=== PATIENT | male | born 1965 | race Caucasian/White ===

== ENCOUNTER 2020-03-30 17:39 | Outpatient (REF) | payer MEDICARE, MEDICAID, SELFPAY | END 2020-03-30 17:40 | disposition home or self-care (01) | LOC: HO.LAB 17:39 | PROVIDERS: PCP Family Medicine; Visit Provider Internal Medicine | DX: Z20.828 Contact with and (suspected) exposure to other viral communicable diseases (principal) | CPT/HCPCS: C9803; U0003 ==

== ENCOUNTER 2020-06-19 16:19 | Emergency (ER) | payer MEDICARE, MEDICAID, SELFPAY ==
[2020-06-19 17:24] VITALS: BP 144/73; PULSE 50; RESP 15; TEMP 36.7; O2SAT 98; BMI 49.3
--- NOTE | 2020-06-19 19:34 | ED.GENADULT ---
HPI - General Adult General Chief complaint: General Medical Stated complaint: prostate infection? Time Seen by Provider: 06/19/20 19:34 Source: patient Mode of arrival: ambulatory Limitations: no limitations History of Present Illness HPI narrative: Patient complaining of dysuria for last 1 week within 2 days without taking any medication he got better then again restarted having the symptoms for last 3 days was seen at [facility] 2 days ago had a CT scan of the abdomen with IV contrast and ultrasound of the scrotum done negative, diagnosed with questionable prostatitis on Cipro comes here pain is not getting better and he noticed slight amount of blood in the urine. No flank pain no kidney stone in the CT scan at [facility] Onset (ago): week(s) (1) Related Data Allergies Allergy/AdvReac Type Severity Reaction Status Date / Time tramadol [TRAMADOL] Allergy Severe SEIZURES Unverified 01/30/20 16:20 metformin [METFORMIN] Allergy Unknown DIARRHEA Unverified 01/30/20 16:20 penicillin V Allergy Unknown Unverified 03/06/19 00:00 Penicillins Allergy Unknown RASH Unverified 01/30/20 16:20 Review of Systems Review of Systems: Constitutional : No Weight loss, No Fever, No Chills ENT/Mouth : No sore throat, No Rhinorrhea Eyes: No Eye Pain, No Swelling Cardiovascular : No Chest Pain, no palpitations Respiratory : No Cough, No Sputum, no shortness of breath Gastrointestinal : no Nausea, No Vomiting, No Diarrhea, No abdominal Pain, no black stools Genitourinary : + Dysuria, No Urinary Frequency Musculoskeletal : No joint pain, No Myalgias, No Joint Swelling Skin : No Skin Lesions, No rash Neuro : No Weakness, No Numbness, No Dizziness, No Headache Psych : No Anxiety/Panic, No Depression Heme/Lymph: No Bruising, No Lymphadenopathy Endocrine : No Polyuria, No Polydipsia All other systems reviewed and are negative [facility] Past Medical History Medical History Back pain Hypertension Social History Social History Alcohol intake: never Smoking Status: Never smoker Smoked in Last 30 Days: No Use of substances other than those prescribed or required for medical reasons: No Advance Directives: No Physical Exam Vital Signs: Vital Signs: Last Vital Signs Temp 98.6 F 06/19/20 23:49 Pulse 67 06/19/20 23:49 Resp 15 06/19/20 23:49 BP 156/69 H 06/19/20 23:49 Pulse Ox 96 06/19/20 23:49 Body Mass Index 49.3 Const: General: cooperative, healthy appearing and in distress mild Nutritional Appearance: average body habitus Orientation/consciousness: patient oriented x3 HENMT: Head: Yes normocephalic and Yes atraumatic Eyes: General: appearance normal, both eyes and all related structures Neck: Neck: Yes normal visual inspection and Yes no JVD Thyroid: Thyroid normal Chest: Chest palpation & inspection: normal inspection of the chest Resp: Effort & Inspection: normal respiratory effort Auscultation: clear to auscultation bilaterally Cardio: Palpation: normal PMI Rate: regular rate Rhythm: regular rhythm Heart sounds: S1 normal heart sound present and S2 normal heart sound present Peripheral pulses: Peripheral pulses 2+ throughout GI: Inspection: Yes normal to inspection Palpation (GI): Soft to palpation and nontender Auscultation: normal bowel sounds Rectal Exam - Male: Yes visual inspection normal, Yes normal sphincter tone and Yes prostate abnormal (Sensitive to touch, tender no significant swelling) : General: Yes no CVA tenderness Male General Exam: Yes normal external exam Penis: normal penis Scrotum: scrotum normal Testes: Testes normal and epididymides normal Back/Spine/Pelvis: Back: no CVA tenderness Thoracic/Lumbar Spine: thoracic and lumbar spine normal to inspection Skin: General skin exam: no rashes or lesions noted Neuro: General: patient oriented x3 and no focal motor deficits Extrem: General: Yes normal to inspection, Yes no calf tenderness and No pedal edema Course Course Course Narrative: Patient with rectal pain lower back pain with history of chronic back pain no fever normal white counts initial lactic acid level was 2.2 repeat lactic acid was normal likely from tourniquet. Patient's records from [facility] which were done on 06/[address] scan abdomen pelvis with IV contrast negative ultrasound scrotum negative labs with normal WBCs , very unlikely to have severe prostatitis with normal labs. On rectal examination patient was very sensitive for rectal exam in even with Uro jet he was very sensitive no swelling or bogginess of prostate noticed patient has is scheduled urologist appointment next week advised to follow-up with urologist. Patient was given 1 dose of IV Rocephin in the ER already has been taking ciprofloxacin 500 mg twice daily Medical Decision Making Lab Data Lab results reviewed: Yes I reviewed the patient's lab results. Result diagrams: 06/19/20 20:41 06/19/20 20:41 Labs: Lab Results 06/19/20 06/19/20 06/19/20 Range/Units 20:41 20:41 20:42 WBC 6.6 (4.8-10.8) X10*3/uL RBC 4.23 L (4.60-5.80) X10*6/uL Hgb 11.7 L (14.0-18.0) g/dl Hct 37.6 L (42-52) % MCV 88.9 (80-98) fL MCH 27.7 (27.0-33.0) pg MCHC 31.1 (31.0-36.0) g/dl RDW 15.4 (11.0-16.0) % Plt Count 348 (160-400) X10*3/uL MPV 9.6 (9.4-12.4) fL Immature Gran % (Auto) 0.2 (0.0-0.4) % Neut % (Auto) 51.5 (45-73) % Lymph % (Auto) 38.2 (20-40) % [place] % (Auto) 8.1 (2-11) % Eos % (Auto) 1.5 (0-4) % Baso % (Auto) 0.5 (0-2) % Lymph # (Auto) 2.5 (1.2-4.9) X10*3/uL [place] # (Auto) 0.5 (0.1-1.2) X10*3/uL Eos # (Auto) 0.1 (0.0-0.4) X10*3/uL Baso # (Auto) 0.0 (0.0-0.2) X10*3/uL Abs Immat Gran (auto) 0.01 (0.00-0.03) X10*3/uL Absolute Neuts (auto) 3.4 (2.0-8.3) X10*3/uL Absolute Nucleated RBC 0.000 (0.0-0.012) X10*3/uL Nucleated RBC % (auto) 0.0 (0.0-0.2) /100WBC Sodium 141 (135-145) mmol/L Potassium 4.6 (3.3-5.1) mmol/L Chloride 105 (96-108) mmol/L Carbon Dioxide 28 (22-29) mmol/L Anion Gap 13 (12-20) BUN 13 (9-16) mg/dL Creatinine 0.91 (0.5-1.4) mg/dL Estim Creat Clear Calc 125.5 Estimated GFR > 60 Random Glucose 98 (60-115) mg/dL Lactic Acid 2.2 H* (0.5-2.0) mmol/L Calcium 8.5 (8.4-10.2) mg/dL Total Bilirubin 0.2 (0.0-1.0) mg/dL Direct Bilirubin < 0.2 (0.0-0.5) mg/dL AST 88 H (5-37) U/L ALT 64 H (0-40) U/L Alkaline Phosphatase 149 H (39-117) U/L Total Protein 7.1 (6.5-8.0) g/dL Albumin 3.6 (3.5-5.0) g/dL 06/19/20 Range/Units 22:14 WBC (4.8-10.8) X10*3/uL RBC (4.60-5.80) X10*6/uL Hgb (14.0-18.0) g/dl Hct (42-52) % MCV (80-98) fL MCH (27.0-33.0) pg MCHC (31.0-36.0) g/dl RDW (11.0-16.0) % Plt Count (160-400) X10*3/uL MPV (9.4-12.4) fL Immature Gran % (Auto) (0.0-0.4) % Neut % (Auto) (45-73) % Lymph % (Auto) (20-40) % [place] % (Auto) (2-11) % Eos % (Auto) (0-4) % Baso % (Auto) (0-2) % Lymph # (Auto) (1.2-4.9) X10*3/uL [place] # (Auto) (0.1-1.2) X10*3/uL Eos # (Auto) (0.0-0.4) X10*3/uL Baso # (Auto) (0.0-0.2) X10*3/uL Abs Immat Gran (auto) (0.00-0.03) X10*3/uL Absolute Neuts (auto) (2.0-8.3) X10*3/uL Absolute Nucleated RBC (0.0-0.012) X10*3/uL Nucleated RBC % (auto) (0.0-0.2) /100WBC Sodium (135-145) mmol/L Potassium (3.3-5.1) mmol/L Chloride (96-108) mmol/L Carbon Dioxide (22-29) mmol/L Anion Gap (12-20) BUN (9-16) mg/dL Creatinine (0.5-1.4) mg/dL Estim Creat Clear Calc Estimated GFR Random Glucose (60-115) mg/dL Lactic Acid 1.4 (0.5-2.0) mmol/L Calcium (8.4-10.2) mg/dL Total Bilirubin (0.0-1.0) mg/dL Direct Bilirubin (0.0-0.5) mg/dL AST (5-37) U/L ALT (0-40) U/L Alkaline Phosphatase (39-117) U/L Total Protein (6.5-8.0) g/dL Albumin (3.5-5.0) g/dL Discharge Plan Discharge Clinical Impression: Acute prostatitis Patient Disposition: Home, Self-Care Instructions: Prostatitis (ED) Additional Instructions: Likely have prostatitis your blood report is normal. Take antibiotics as prescribed by [facility] and follow-up with urologist as scheduled Report to the ER/PCP if high fever/vomiting not feeling good Interventions: ED Discharge Assessment Last Done: 06/20/20 00:18 Discharge Date/Time: 06/20/20 00:18
[2020-06-19 19:52] VITALS: BP 140/55; PULSE 69; RESP 17; TEMP 37.1; O2SAT 100
[2020-06-19 20:00] VITALS: BP 147/70; PULSE 60; RESP 16; TEMP 36.9; O2SAT 96
[2020-06-19 20:50] LABS: MANUAL DIFF FLAG NO
--- NOTE | 2020-06-19 20:58 | PC.NURSE ---
MULTIPLE ATTEMPTS FOR IV ACCESS FORM THIS RN AND OTHER. PROVIDER MADE AWARE, ORDERS CHANGED FOR PO MEDICATIONS. PATIENT ENCOURAGED TO URINATE FOR SAMPLE [facility] CONTACTED FOR MEDICAL RECORDS FROM 2 DAYS AGO. PATIENT THERE FOR SAME COMPLAINT.
[2020-06-19 20:59] LABS: Basophils Percent Auto 0.5 % (0-2); Eosinophils Absolute Auto 0.1 X10*3/uL (0.0-0.4); Eosinophils Percent Auto 1.5 % (0-4); Hematocrit 37.6 % (42-52); Hemoglobin 11.7 g/dl (14.0-18.0); Imm Gran Abs Auto 0.01 X10*3/uL (0.00-0.03); Imm Gran Pct Auto 0.2 % (0.0-0.4); Lymphocytes Absolute Auto 2.5 X10*3/uL (1.2-4.9); Lymphocytes Percent Auto 38.2 % (20-40); Mean Corpuscular HGB Conc 31.1 g/dl (31.0-36.0); Mean Corpuscular Hemoglobin 27.7 pg (27.0-33.0); Mean Corpuscular Volume 88.9 fL (80-98); Mean Platelet Volume 9.6 fL (9.4-12.4); Monocytes Absolute Auto 0.5 X10*3/uL (0.1-1.2); Monocytes Percent Auto 8.1 % (2-11); Neutrophils Absolute Auto 3.4 X10*3/uL (2.0-8.3); Neutrophils Percent Auto 51.5 % (45-73); Platelet Count 348 X10*3/uL (160-400); Red Blood Count 4.23 X10*6/uL (4.60-5.80); Red Cell Distribution Width 15.4 % (11.0-16.0); White Blood Count 6.6 X10*3/uL (4.8-10.8)
[2020-06-19] MEDS: oxyCODONE HCl Immed Release 5 MG TABLET 10 MG PO (21:05)
[2020-06-19 21:32] LABS: Alanine Aminotransferase 64 U/L (0-40); Albumin Level 3.6 g/dL (3.5-5.0); Alkaline Phosphatase 149 U/L (39-117); Anion Gap 13 (12-20); Aspartate Amino Transferase 88 U/L (5-37); Bilirubin Direct < 0.2 mg/dL (0.0-0.5); Bilirubin Total 0.2 mg/dL (0.0-1.0); Blood Urea Nitrogen 13 mg/dL (9-16); Calcium 8.5 mg/dL (8.4-10.2); Carbon Dioxide 28 mmol/L (22-29); Chloride 105 mmol/L (96-108); Creatinine Clr Calc Pharmacy 125.5; Estimated Glomerular Filt Rate > 60; Glucose Random 98 mg/dL (60-115); Potassium 4.6 mmol/L (3.3-5.1); Sodium 141 mmol/L (135-145); Total Protein 7.1 g/dL (6.5-8.0)
[2020-06-19 21:48] VITALS: BP 145/71; PULSE 51; RESP 16; TEMP 36.9; O2SAT 96
[2020-06-19] MEDS: Lidocaine HCl 2 % Urojet 10 ML JEL.PF.APP TOPICAL (22:18)
[2020-06-19] MEDS: 0.9 % Sodium Chloride 1,000 ML 999 ML IVCONT ×2 (22:18→23:19)
[2020-06-19 22:41] LABS: Lactic Acid 1.4 mmol/L (0.5-2.0)
[2020-06-19 22:49] LABS: Reflex Lactate? Lactic Acid Added
[2020-06-19] MEDS: HYDROmorphone HCl 2 MG/ML VIAL IVPUSH (23:19)
[2020-06-19] MEDS: cefTRIAXone sodium 1 GM in 0.9 % Sodium Chloride 50 ML IV (23:19)
[2020-06-19 23:49] VITALS: BP 156/69; PULSE 67; RESP 15; TEMP 37; O2SAT 96
[2020-06-22 14:08] LABS: Lactic Acid 2.2 mmol/L (0.5-2.0)
== END 2020-06-20 00:18 | disposition home or self-care (01) ==
PROVIDERS: Emergency Provider Internal Medicine; PCP Family Medicine
DX: N41.0 Acute prostatitis (principal); I10 Essential (primary) hypertension
CPT/HCPCS: 36415; 80048; 80076; 83605; 85025; 87040; 96361; 96365; 96366; 96367; 96375; 96376; 99284; J0696; J1170

== ENCOUNTER 2020-07-12 20:09 | Emergency (ER) | payer MEDICARE, MEDICAID, SELFPAY ==
--- NOTE | ~2020-07-12 | US_ITS ---
EXAMINATION: US SCROTUM CLINICAL INFORMATION: Testicular pain. COMPARISON: None TECHNIQUE: A sonogram of the scrotum was performed assessing osei-scale appearance and color Doppler flow. Spectral Doppler analysis of the arterial and venous flow were performed in the testes bilaterally. Examination is mildly limited secondary to patient body habitus. FINDINGS: RIGHT: Right testicle measures 2.9 x 1.5 x 2.1 cm, volume 4.8 mL. No focal testicular parenchymal lesions are visualized. Spectral Doppler analysis of the arterial and venous flow is normal in the right testis. Right epididymal head is normal in size. No right hydrocele or varicocele is seen. Right epididymal color flow is normal. LEFT: Left testicle measures 2.5 x 1.3 x 1.9 cm, volume 3.3 mL. No focal testicular parenchymal lesions are visualized although a prominent vein courses through the central aspect of the left testicle. Spectral Doppler analysis of the arterial and venous flow is normal in the left testis. Left epididymal head is normal in size. No left hydrocele or varicocele is seen. Left epididymal color flow is normal. US/US scrotum IMPRESSION: The testicles are small in size but demonstrate normal arterial and venous waveforms bilaterally.
--- NOTE | ~2020-07-12 | US_ITS ---
EXAMINATION: US SCROTUM CLINICAL INFORMATION: Testicular pain. COMPARISON: None TECHNIQUE: A sonogram of the scrotum was performed assessing osei-scale appearance and color Doppler flow. Spectral Doppler analysis of the arterial and venous flow were performed in the testes bilaterally. Examination is mildly limited secondary to patient body habitus. FINDINGS: RIGHT: Right testicle measures 2.9 x 1.5 x 2.1 cm, volume 4.8 mL. No focal testicular parenchymal lesions are visualized. Spectral Doppler analysis of the arterial and venous flow is normal in the right testis. Right epididymal head is normal in size. No right hydrocele or varicocele is seen. Right epididymal color flow is normal. LEFT: Left testicle measures 2.5 x 1.3 x 1.9 cm, volume 3.3 mL. No focal testicular parenchymal lesions are visualized although a prominent vein courses through the central aspect of the left testicle. Spectral Doppler analysis of the arterial and venous flow is normal in the left testis. Left epididymal head is normal in size. No left hydrocele or varicocele is seen. Left epididymal color flow is normal. US/US scrotum doppler IMPRESSION: The testicles are small in size but demonstrate normal arterial and venous waveforms bilaterally.
--- NOTE | ~2020-07-12 | CT_ITS ---
EXAMINATION: CT ABDOMEN AND PELVIS WITH CONTRAST CLINICAL INFORMATION: Suprapubic/inguinal pain. COMPARISON: 08/06/2013 TECHNIQUE: Multidetector volumetric images were obtained from the superior aspect of the liver through the pubic symphysis following administration 85 mL of Omnipaque 350 intravenous contrast. Sagittal and coronal reformatted images were obtained on the technologist's workstation. Oral contrast: No This CT examination was performed using dose optimization techniques as appropriate, variously including the following: *Automated exposure control *Adjustment of mA and/or kV according to patient size (this includes techniques or standardized protocols for targeted exams where dose is matched to indication/reason for exam; i.e. extremities or head) *Use of iterative reconstruction technique DLP: 1457 mGy-cm FINDINGS: LUNG BASES: The visualized lung bases are unremarkable. LIVER, GALLBLADDER, AND BILIARY TREE: The liver is normal in size, shape, and attenuation. No focal hepatic lesion or biliary ductal dilatation is present. Cholecystectomy. PANCREAS: There is atrophy of the pancreatic parenchyma with no focal lesion. SPLEEN: Unremarkable. ADRENAL GLANDS: Unremarkable. KIDNEYS AND URETERS: The kidneys are normal in size, shape, and attenuation. No hydronephrosis, hydroureter, or calculi seen. No perinephric stranding. BLADDER: Unremarkable. GASTROINTESTINAL TRACT: Postsurgical changes of Kylee-en-Y gastric bypass. No obstruction. Normal appendix. No colonic wall thickening or inflammatory change. Moderate colonic stool burden. No free air or free fluid. ABDOMINAL WALL: No significant hernia is appreciated. LYMPH NODES: Normal. VASCULAR: Normal caliber aorta with mild atherosclerotic calcification. PELVIC VISCERA: The prostate and seminal vesicles are unremarkable. OSSEOUS STRUCTURES: No acute or suspicious osseous abnormality. Posterior fusion hardware at L3-L4. Appropriate alignment. Degenerative changes of the spine. Mild degenerative changes of the right hip. CT/CT abdomen pelvis w con IMPRESSION: No acute findings in the abdomen or pelvis. No inflammatory changes. Normal appearance of the prostate. No abdominal wall hernia seen. Postsurgical changes of Kylee-en-Y gastric bypass.
[2020-07-12 20:28] VITALS: BP 175/80; PULSE 70; RESP 15; TEMP 36.6; O2SAT 98; BMI 49.3
--- NOTE | 2020-07-12 21:10 | ED.MALEGU ---
HPI - Male Genitourinary General Chief complaint: Urogenital-Male Stated complaint: Groin pain Time Seen by Provider: 07/12/20 21:07 Source: patient Mode of arrival: ambulatory History of Present Illness HPI Narrative: This is a 55-year-old male with history and clinical presentation of persistent testicular/groin pain that has been ongoing since the beginning of June. Patient was evaluated here in the emergency department on and treated for presumptive prostatitis. Patient now presents with complaints of chills and pain on urination with dribbling and needing to strain to urinate but denies any other shortness of breath/chest pain/diarrhea and no pain on defecation. Patient states he has continued to have right greater than left testicular discomfort and states that he is still waiting to have his appointment with Urology and that his primary care provider has left him on the antibiotics that were prescribed. Related Data Allergies Allergy/AdvReac Type Severity Reaction Status Date / Time tramadol [TRAMADOL] Allergy Severe SEIZURES Verified 07/12/20 20:34 metformin [METFORMIN] Allergy Unknown DIARRHEA Verified 07/12/20 20:34 penicillin V Allergy Unknown Rash Verified 07/12/20 20:34 Penicillins Allergy Unknown RASH Verified 07/12/20 20:34 Review of Systems Review of Systems: Pertinent positives and negatives as stated in HPI 10 point review of systems is otherwise negative. PMFSH Past Medical History Source: nursing notes reviewed Medical History Back pain Hypertension Social History Social History Alcohol intake: never Smoking Status: Never smoker Advance Directives: No Advance Directives Information Provided: Yes Physical Exam Vital Signs: Vital Signs: Last Vital Signs Temp 97.9 F 07/12/20 20:28 Pulse 78 07/12/20 23:39 Resp 18 07/12/20 23:39 BP 189/92 H 07/12/20 23:39 Pulse Ox 98 07/12/20 23:39 Body Mass Index 49.3 VITAL SIGNS: Reviewed. GENERAL: Well developed, well nourished, in no acute distress. HEAD: Normocephalic/atraumatic EYES: PERRLA, EOMI OROPHARYNX: no oral lesions noted, posterior pharynx clear NECK: Supple, no adenopathy LUNGS: Normal breath sounds. No adventitious sounds or accessory muscle use. SpO2<98> CARDIOVASCULAR: Regular rate and rhythm without noted murmurs, no JVD or lower extremity edema. ABDOMEN: Morbidly obese, Soft, non-tender, non-distended with bowel sounds. [exam standing]: Circumcised penis, palpation of right testicle illicits considerable pain which extends up the epididymis with suspected hernia and pain over the inguinal area as well as the fat pad covering the suprapubic tissue, there is no evidence of erythema/ulceration/induration/crepitus, palpation of the left testicle elicits pain that is less than the right but still present no suspected hernia however the fat pad covering the inguinal area is very tender on palpation although less when compared to right, palpation over the perineal area between scrotum and rectum is minimally tender without evidence of infection. GROIN: Patient placed in frogleg on his back extensive inspection of the scrotum and perineal area negative for erythema/induration/crepitus/?bogginess?. ARIANA: No tags or lesions noted externally, no inflamed external hemorrhoids noted, exam difficult due to patient struggling with relaxing however 1 finger was successfully placed into the anus and palpation prostate did appear to be painful to the patient however unclear whether this was the exam itself as prostate does not feel boggy and evaluation for masses equivocal due to exam limitations, no evidence of melena or gross blood on finger with good rectal tone. SKIN: Inspection of the skin reveals no rashes, ulcerations, jaundice, pallor, or petechiae. NEUROLOGIC: Alert and oriented x 4. Course Course Course Narrative: This is a 55-year-old male with history and clinical presentation less concerning for Peter's gangrene, possibility of hernia as well as incomplete treatment of a prostatitis however this seems less likely given the absence of pain on palpation over the perineal area. No obvious support for abscess. - pain medications, labs, STI workup, UA, ultrasound of the scrotum, and likely will proceed to pelvic ultrasound with IV contrast. Review of all investigations is negative for any evidence to explain patient's presentation. All the results and findings were discussed with him at bedside and he was encouraged to follow up with his primary care provider for further outpatient workup as well as pursuing an evaluation by Urology. MDM - Male Genitourinary Lab Data Result diagrams: 07/12/20 22:25 07/12/20 22:25 Labs: Lab Results 07/12/20 07/12/20 07/12/20 Range/Units 22:25 22:25 22:25 WBC 6.7 (4.8-10.8) X10*3/uL RBC 4.11 L (4.60-5.80) X10*6/uL Hgb 11.1 L (14.0-18.0) g/dl Hct 35.2 L (42-52) % MCV 85.6 (80-98) fL MCH 27.0 (27.0-33.0) pg MCHC 31.5 (31.0-36.0) g/dl RDW 15.2 (11.0-16.0) % Plt Count 328 (160-400) X10*3/uL MPV 9.7 (9.4-12.4) fL Immature Gran % (Auto) 0.1 (0.0-0.4) % Neut % (Auto) 58.0 (45-73) % Lymph % (Auto) 32.9 (20-40) % [place] % (Auto) 8.0 (2-11) % Eos % (Auto) 0.7 (0-4) % Baso % (Auto) 0.3 (0-2) % Lymph # (Auto) 2.2 (1.2-4.9) X10*3/uL [place] # (Auto) 0.5 (0.1-1.2) X10*3/uL Eos # (Auto) 0.1 (0.0-0.4) X10*3/uL Baso # (Auto) 0.0 (0.0-0.2) X10*3/uL Abs Immat Gran (auto) 0.01 (0.00-0.03) X10*3/uL Absolute Neuts (auto) 3.9 (2.0-8.3) X10*3/uL Absolute Nucleated RBC 0.000 (0.0-0.012) X10*3/uL Nucleated RBC % (auto) 0.0 (0.0-0.2) /100WBC Sodium 141 (135-145) mmol/L Potassium 4.1 (3.3-5.1) mmol/L Chloride 106 (96-108) mmol/L Carbon Dioxide 26 (22-29) mmol/L Anion Gap 13 (12-20) BUN 13 (9-16) mg/dL Creatinine 0.88 (0.5-1.4) mg/dL Estim Creat Clear Calc 129.8 Estimated GFR > 60 Random Glucose 103 (60-115) mg/dL Lactic Acid 0.9 (0.5-2.0) mmol/L Calcium 8.3 L (8.4-10.2) mg/dL Total Bilirubin 0.3 (0.0-1.0) mg/dL AST 25 D (5-37) U/L ALT 32 (0-40) U/L Alkaline Phosphatase 142 H (39-117) U/L Total Protein 7.2 (6.5-8.0) g/dL Albumin 3.7 (3.5-5.0) g/dL Urine Color Urine Appearance Urine pH (5.0-8.0) Ur Specific [place] (1.005-1.025) Urine Protein (NEG-TRACE) MG/DL Urine Glucose (UA) (NEG) MG/DL Urine Ketones (NEG) MG/DL Urine Blood (NEG) Urine Nitrite (NEG) Ur Leukocyte Esterase (NEG) 07/13/20 Range/Units 00:21 WBC (4.8-10.8) X10*3/uL RBC (4.60-5.80) X10*6/uL Hgb (14.0-18.0) g/dl Hct (42-52) % MCV (80-98) fL MCH (27.0-33.0) pg MCHC (31.0-36.0) g/dl RDW (11.0-16.0) % Plt Count (160-400) X10*3/uL MPV (9.4-12.4) fL Immature Gran % (Auto) (0.0-0.4) % Neut % (Auto) (45-73) % Lymph % (Auto) (20-40) % [place] % (Auto) (2-11) % Eos % (Auto) (0-4) % Baso % (Auto) (0-2) % Lymph # (Auto) (1.2-4.9) X10*3/uL [place] # (Auto) (0.1-1.2) X10*3/uL Eos # (Auto) (0.0-0.4) X10*3/uL Baso # (Auto) (0.0-0.2) X10*3/uL Abs Immat Gran (auto) (0.00-0.03) X10*3/uL Absolute Neuts (auto) (2.0-8.3) X10*3/uL Absolute Nucleated RBC (0.0-0.012) X10*3/uL Nucleated RBC % (auto) (0.0-0.2) /100WBC Sodium (135-145) mmol/L Potassium (3.3-5.1) mmol/L Chloride (96-108) mmol/L Carbon Dioxide (22-29) mmol/L Anion Gap (12-20) BUN (9-16) mg/dL Creatinine (0.5-1.4) mg/dL Estim Creat Clear Calc Estimated GFR Random Glucose (60-115) mg/dL Lactic Acid (0.5-2.0) mmol/L Calcium (8.4-10.2) mg/dL Total Bilirubin (0.0-1.0) mg/dL AST (5-37) U/L ALT (0-40) U/L Alkaline Phosphatase (39-117) U/L Total Protein (6.5-8.0) g/dL Albumin (3.5-5.0) g/dL Urine Color YELLOW Urine Appearance CLEAR Urine pH 5.5 (5.0-8.0) Ur Specific [place] 1.020 (1.005-1.025) Urine Protein NEG (NEG-TRACE) MG/DL Urine Glucose (UA) NEG (NEG) MG/DL Urine Ketones NEG (NEG) MG/DL Urine Blood NEG (NEG) Urine Nitrite NEG (NEG) Ur Leukocyte Esterase NEG (NEG) Discharge Plan Discharge Clinical Impression: Chronic groin pain Qualifiers: Laterality: unspecified laterality Qualified Code(s): R10.30 - Lower abdominal pain, unspecified Patient Disposition: Home, Self-Care Instructions: Groin Pain (ED) Additional Instructions: 1. Reanude todos los medicamentos caseros seg?n lo recetado. 2. Utilice Tylenol / ibuprofeno de venta fredo para aliviar los s?ntomas adicionales aida se indica en el empaque exterior. 3. Comun?quese con el consultorio de mccrary proveedor de atenci?n primaria por la ma?cosmo para programar mora reevaluaci?n y manejo de alice s?ntomas continuos. No dude en volver al servicio de urgencias si desarrolla un empeoramiento barber de alice s?ntomas asociado con fiebre, escalofr?os. Referrals: Giorgi Leach MD [Primary Care Provider] - 2 days (Re-evaluation and outpatient management for chronic groin pain and extensive workup in the emergency department did not yield identifying etiology.) Print Language: Hungarian
[2020-07-12] MEDS: Ketorolac Tromethamine 15 MG/ML VIAL IVPUSH (22:25)
[2020-07-12] MEDS: Acetaminophen 325 MG TABLET 975 MG PO (22:25)
[2020-07-12] MEDS: 0.9 % Sodium Chloride 1,000 ML 999 ML IV (22:25)
[2020-07-12 22:33] LABS: MANUAL DIFF FLAG NO
[2020-07-12 22:36] LABS: Basophils Percent Auto 0.3 % (0-2); Eosinophils Absolute Auto 0.1 X10*3/uL (0.0-0.4); Eosinophils Percent Auto 0.7 % (0-4); Hematocrit 35.2 % (42-52); Hemoglobin 11.1 g/dl (14.0-18.0); Imm Gran Abs Auto 0.01 X10*3/uL (0.00-0.03); Imm Gran Pct Auto 0.1 % (0.0-0.4); Lymphocytes Absolute Auto 2.2 X10*3/uL (1.2-4.9); Lymphocytes Percent Auto 32.9 % (20-40); Mean Corpuscular HGB Conc 31.5 g/dl (31.0-36.0); Mean Corpuscular Volume 85.6 fL (80-98); Mean Platelet Volume 9.7 fL (9.4-12.4); Monocytes Absolute Auto 0.5 X10*3/uL (0.1-1.2); Neutrophils Absolute Auto 3.9 X10*3/uL (2.0-8.3); Platelet Count 328 X10*3/uL (160-400); Red Blood Count 4.11 X10*6/uL (4.60-5.80); Red Cell Distribution Width 15.2 % (11.0-16.0); White Blood Count 6.7 X10*3/uL (4.8-10.8)
[2020-07-12 22:53] LABS: Lactic Acid 0.9 mmol/L (0.5-2.0)
[2020-07-12 22:59] LABS: Alanine Aminotransferase 32 U/L (0-40); Albumin Level 3.7 g/dL (3.5-5.0); Alkaline Phosphatase 142 U/L (39-117); Anion Gap 13 (12-20); Aspartate Amino Transferase 25 U/L (5-37); Bilirubin Total 0.3 mg/dL (0.0-1.0); Blood Urea Nitrogen 13 mg/dL (9-16); Calcium 8.3 mg/dL (8.4-10.2); Carbon Dioxide 26 mmol/L (22-29); Chloride 106 mmol/L (96-108); Creatinine Clr Calc Pharmacy 129.8; Estimated Glomerular Filt Rate > 60; Glucose Random 103 mg/dL (60-115); Potassium 4.1 mmol/L (3.3-5.1); Sodium 141 mmol/L (135-145); Total Protein 7.2 g/dL (6.5-8.0)
--- NOTE | 2020-07-12 23:12 | PC.NURSE ---
THIS RN IN TO WAFER CUTTER MD FOR ARIANA
[2020-07-12] MEDS: fentaNYL citrate/PF 100 MCG/2 ML VIAL 25 MCG IVPUSH (23:33)
[2020-07-12 23:39] VITALS: BP 189/92; PULSE 78; RESP 18; O2SAT 98
[2020-07-12] MEDS: iohexoL 350 MG/ML 100 ML INFUS..BTL 85 ML IV (23:51)
[2020-07-13 00:32] LABS: Glucose Urine UA NEG (NEG); Leukocyte Esterase Urine NEG (NEG); Nitrite Urine NEG (NEG); PH 5.5 (5.0-8.0); Urine Blood NEG (NEG); Urine Ketones NEG (NEG); Urine Protein NEG (NEG-TRACE)
[2020-07-13 00:33] LABS: Appearance Urine CLEAR; Color Urine YELLOW; UACC Culture Trigger NO
[2020-07-13 02:10] VITALS: BP 178/80; PULSE 76; RESP 18; O2SAT 98
== END 2020-07-13 02:45 | disposition home or self-care (01) ==
PROVIDERS: Emergency Provider Student in an Organized Health Care Education/Training Program; PCP Family Medicine
DX: N50.819 Testicular pain, unspecified (principal); R03.0 Elevated blood-pressure reading, without diagnosis of hypertension; R10.30 Lower abdominal pain, unspecified
CPT/HCPCS: 36415; 74177; 76870; 80053; 81003; 83605; 85025; 87040; 93975; 96361; 96365; 96375; 99284; J1885; J3010; Q9967

== ENCOUNTER 2020-09-14 00:21 | Outpatient (REF) | payer SELFPAY | END 2020-09-14 00:22 | disposition home or self-care (01) | LOC: HO.MMNH2L 00:21 | PROVIDERS: Visit Provider Family Medicine | DX: Z13.89 Encounter for screening for other disorder (principal) ==

== ENCOUNTER 2020-09-21 16:24 | Emergency (ER) | payer MEDICARE, MEDICAID, SELFPAY ==
[2020-09-21 16:40] VITALS: BP 203/81; PULSE 84; RESP 16; TEMP 36.6; O2SAT 93; BMI 47.9
[2020-09-21 16:45] LABS: Glucose, Whole Blood 172 mg/dL (60-115)
--- NOTE | 2020-09-21 17:03 | ED.SEIZURE ---
HPI - Seizure General Chief Complaint: Seizure Stated Complaint: unresponsive ? seizure Time Seen by Provider: 09/21/20 17:03 Source: patient Mode of arrival: EMS Limitations: language barrier History of Present Illness HPI Narrative: Patient's history of seizure disorder for a long time not taking his Depakote which is supposed to take for last few days last seizure was 2 years ago. Patient taking OxyContin 30 mg daily and oxycodone 10 mg every 6 hours for last few weeks for his chronic back pain given by his PCP. Today he did not eat anything and when to do shopping with his sitting on the [employer] cart he took his oxycodone and OxyContin hour before that, noticed he is not feeling well and next moment he was having seizure which lasted for 3-4 minutes. EMS gave nasal Narcan thought was overdose now patient feeling uneasy with sweating Related Data Home Medications Medication Instructions Recorded Confirmed amlodipine 10 mg PO DAILY 09/21/20 09/21/20 dexlansoprazole [Dexilant] 1 cap PO DAILY 09/21/20 09/21/20 divalproex [Depakote] 500 mg PO BID 09/21/20 09/21/20 fluoxetine 1 cap PO DAILY 09/21/20 09/21/20 lisinopril 40 mg PO DAILY 09/21/20 09/21/20 metoprolol succinate 200 mg PO DAILY 09/21/20 09/21/20 oxycodone [OxyContin] 1 tab PO BID 09/21/20 09/21/20 oxycodone-acetaminophen 1 tab PO QID PRN 09/21/20 09/21/20 sildenafil 1 tab PO DAILY 09/21/20 09/21/20 simvastatin 1 tab PO DAILY 09/21/20 09/21/20 Previous Rx's Medication Instructions Recorded diclofenac epolamine 1 patch TOPICAL BID #30 ea 09/21/20 levetiracetam [Keppra] 500 mg PO BID #60 tab 09/21/20 lidocaine [Lidoderm] 1 patch TOPICAL DAILY #30 ea 09/21/20 Allergies Allergy/AdvReac Type Severity Reaction Status Date / Time tramadol [TRAMADOL] Allergy Severe SEIZURES Verified 09/21/20 16:29 metformin [METFORMIN] Allergy Unknown DIARRHEA Verified 09/21/20 16:29 penicillin V Allergy Unknown Rash Verified 09/21/20 16:29 Penicillins Allergy Unknown RASH Verified 09/21/20 16:29 Review of Systems Review of Systems: Constitutional : No Weight loss, No Fever, No Chills ENT/Mouth : No sore throat, No Rhinorrhea Eyes: No Eye Pain, No Swelling Cardiovascular : No Chest Pain, no palpitations Respiratory : No Cough, No Sputum, no shortness of breath Gastrointestinal : no Nausea, No Vomiting, No Diarrhea, No abdominal Pain, no black stools Genitourinary : No Dysuria, No Urinary Frequency Musculoskeletal : No joint pain, No Myalgias, No Joint Swelling Skin : No Skin Lesions, No rash Neuro : No Weakness, No Numbness, No Dizziness, No Headache Psych : No Anxiety/Panic, No Depression Heme/Lymph: No Bruising, No Lymphadenopathy Endocrine : No Polyuria, No Polydipsia All other systems reviewed and are negative [facility] Past Medical History Medical History Back pain Hypertension Social History Social History Alcohol intake: former Smoking Status: Never smoker Use of substances other than those prescribed or required for medical reasons: No Advance Directives: No Advance Directives Information Provided: No Physical Exam Vital Signs: Vital Signs: Last Vital Signs Temp 98 F 09/21/20 16:40 Pulse 61 09/21/20 22:14 Resp 15 09/21/20 22:14 BP 165/75 H 09/21/20 22:14 Pulse Ox 96 09/21/20 22:14 Body Mass Index 47.9 Appearance: Alert. Oriented X3. No acute distress. Eyes: PERRLA, No Nystagmus ENT: Pharynx normal. Oral Mucosa moist no tongue bite Neck: Normal inspection. Neck supple. CVS: Normal heart rate and rhythm. Pulses normal. Respiratory: No respiratory distress. Equal air entry bilateral, no wheezing/rales/rhonchi Abdomen: Soft and nontender. Bowel sounds are present, no mass palpable, no CVA tenderness Skin: Skin warm and dry. Normal skin color. Normal skin turgor. Extremities: No lower extremity edema. No calf tenderness Neuro: Oriented X 3. No motor deficit. No sensory deficit.No cerebellar signs , cranial nerves II-XII intact Course Reevaluation(s) Reevaluation #1: Patient found to have RR 6/min with apnea saturating 58% at room air, 4 mg Narcan was given intranasally patient with patient responded no saturating 92% Time: 18:30 MDM - Seizure MDM Narrative Medical decision making narrative: Patient with clinical overdose on narcotics using prescription medication oxycodone, OxyContin lab workup showed elevated liver enzymes AST 455 ALT 167, a clean phosphatase 190 bilirubin 0.4. Patient had normal LFTs on 09/10. Patient been taking Tylenol about 2 g a day for last few months also on Lipitor and Depakote likely causing increase elevation LFTs. Patient status post cholecystectomy no tenderness in the right upper quadrant. Tylenol level is normal. 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 Result diagrams: 09/21/20 18:42 09/21/20 18:42 Labs: Lab Results 09/21/20 09/21/20 09/21/20 Range/Units 16:41 18:42 18:42 WBC 13.8 H (4.8-10.8) X10*3/uL RBC 4.29 L (4.60-5.80) X10*6/uL Hgb 12.0 L (14.0-18.0) g/dl Hct 38.0 L (42-52) % MCV 88.6 (80-98) fL MCH 28.0 (27.0-33.0) pg MCHC 31.6 (31.0-36.0) g/dl RDW 16.5 H (11.0-16.0) % Plt Count 383 (160-400) X10*3/uL MPV 9.4 (9.4-12.4) fL Immature Gran % (Auto) 0.7 H (0.0-0.4) % Neut % (Auto) 75.5 H (45-73) % Lymph % (Auto) 15.0 L (20-40) % [place] % (Auto) 8.6 (2-11) % Eos % (Auto) 0.1 (0-4) % Baso % (Auto) 0.1 (0-2) % Lymph # (Auto) 2.1 (1.2-4.9) X10*3/uL [place] # (Auto) 1.2 (0.1-1.2) X10*3/uL Eos # (Auto) 0.0 (0.0-0.4) X10*3/uL Baso # (Auto) 0.0 (0.0-0.2) X10*3/uL Abs Immat Gran (auto) 0.09 H (0.00-0.03) X10*3/uL Absolute Neuts (auto) 10.4 H (2.0-8.3) X10*3/uL Absolute Nucleated RBC 0.000 (0.0-0.012) X10*3/uL Nucleated RBC % (auto) 0.0 (0.0-0.2) /100WBC Sodium 140 (135-145) mmol/L Potassium 5.0 D (3.3-5.1) mmol/L Chloride 106 (96-108) mmol/L Carbon Dioxide 25 (22-29) mmol/L Anion Gap 14 (12-20) BUN 15 (9-16) mg/dL Creatinine 1.09 (0.5-1.4) mg/dL Estim Creat Clear Calc 103.0 Estimated GFR > 60 POC Glucose 172 H (60-115) mg/dL Random Glucose 247 H D (60-115) mg/dL Calcium 9.1 D (8.4-10.2) mg/dL Total Bilirubin 0.4 (0.0-1.0) mg/dL AST 455 H (5-37) U/L ALT 167 H (0-40) U/L Alkaline Phosphatase 190 H D (39-117) U/L Total Protein 7.6 (6.5-8.0) g/dL Albumin 4.0 (3.5-5.0) g/dL Acetaminophen 4 (<30) mcg/mL Valproic Acid 16.9 L (50.0-100.0) mcg/mL Discharge Plan Discharge Clinical Impression: Acute hepatitis Epileptic seizure Qualifiers: Epilepsy type: generalized idiopathic Intractability: not intractable Status epilepticus: without status epilepticus Qualified Code(s): G40.309 - Generalized idiopathic epilepsy and epileptic syndromes, not intractable, without status epilepticus Patient Disposition: Home, Self-Care Instructions: Epilepsy (ED) Additional Instructions: You have elevated liver enzymes Stop Depakote and simvastatin Do not take OxyContin for now as your liver enzymes are elevated Do not take Tylenol anymore 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 to recheck your liver enzymes start taking Keppra for seizures Prescriptions: New levetiracetam [Keppra] 500 mg tablet 500 mg PO BID Qty: 60 RF: 0 diclofenac epolamine 1.3 % patch 12 hour 1 patch topical BID Qty: 30 RF: 0 lidocaine [Lidoderm] 5 % adhesive patch,medicated 1 patch topical DAILY Qty: 30 RF: 0 No Action sildenafil 50 mg tablet 1 tab PO DAILY RF: 0 oxycodone-acetaminophen 10-325 mg tablet 1 tab PO QID PRN (Reason: Pain) RF: 0 simvastatin 20 mg tablet 1 tab PO DAILY RF: 0 fluoxetine 20 mg capsule 1 cap PO DAILY RF: 0 Dexilant 60 mg capsule,biphase delayed releas 1 cap PO DAILY RF: 0 oxycodone [OxyContin] 30 mg tablet,oral only,ext.rel.12 hr 1 tab PO BID RF: 0 metoprolol succinate 200 mg Tablet Extended Release 24 Hr 200 mg PO DAILY RF: 0 divalproex [Depakote] 500 mg Tablet,Delayed Release (Dr/Ec) 500 mg PO BID RF: 0 amlodipine 10 mg Tablet 10 mg PO DAILY RF: 0 lisinopril 40 mg Tablet 40 mg PO DAILY RF: 0 Referrals: Teresa Abdul MD [Physician] - 5 days Interventions: ED Discharge Assessment Last Done: 09/21/20 22:40 Discharge Date/Time: 09/21/20 22:41
[2020-09-21] MEDS: Divalproex Sodium 500 MG TABLET.DR 1000 MG PO (17:54)
--- NOTE | 2020-09-21 18:01 | PC.NURSE ---
Pt passing out while talking, per MD Hopkins will draw labs and start a liter of fluid.
[2020-09-21 18:36] VITALS: O2SAT 52; O2SAT 92
--- NOTE | 2020-09-21 18:36 | PC.NURSE ---
o2 sat 52% on room air- 4mg in narcan given per md order. pt up to 92% on room air. 4l nc applied.
[2020-09-21] MEDS: 0.9 % Sodium Chloride 1,000 ML 999 ML IVCONT (18:45)
[2020-09-21 18:48] LABS: MANUAL DIFF FLAG NO
[2020-09-21 18:50] LABS: Basophils Percent Auto 0.1 % (0-2); Eosinophils Percent Auto 0.1 % (0-4); Imm Gran Abs Auto 0.09 X10*3/uL (0.00-0.03); Imm Gran Pct Auto 0.7 % (0.0-0.4); Lymphocytes Absolute Auto 2.1 X10*3/uL (1.2-4.9); Mean Corpuscular HGB Conc 31.6 g/dl (31.0-36.0); Mean Corpuscular Volume 88.6 fL (80-98); Mean Platelet Volume 9.4 fL (9.4-12.4); Monocytes Absolute Auto 1.2 X10*3/uL (0.1-1.2); Monocytes Percent Auto 8.6 % (2-11); Neutrophils Absolute Auto 10.4 X10*3/uL (2.0-8.3); Neutrophils Percent Auto 75.5 % (45-73); Platelet Count 383 X10*3/uL (160-400); Red Blood Count 4.29 X10*6/uL (4.60-5.80); Red Cell Distribution Width 16.5 % (11.0-16.0); White Blood Count 13.8 X10*3/uL (4.8-10.8)
[2020-09-21] MEDS: Naloxone HCl Nasal 4 MG SPRAY NOSTRILALT (18:59)
[2020-09-21 19:22] VITALS: BP 174/65; PULSE 63; RESP 15; O2SAT 100
[2020-09-21 19:22] LABS: Valproate 16.9 mcg/mL (50.0-100.0)
[2020-09-21 19:25] LABS: Alanine Aminotransferase 167 U/L (0-40); Alkaline Phosphatase 190 U/L (39-117); Anion Gap 14 (12-20); Aspartate Amino Transferase 455 U/L (5-37); Bilirubin Total 0.4 mg/dL (0.0-1.0); Blood Urea Nitrogen 15 mg/dL (9-16); Calcium 9.1 mg/dL (8.4-10.2); Carbon Dioxide 25 mmol/L (22-29); Chloride 106 mmol/L (96-108); Estimated Glomerular Filt Rate > 60; Glucose Random 247 mg/dL (60-115); Sodium 140 mmol/L (135-145); Total Protein 7.6 g/dL (6.5-8.0)
[2020-09-21 20:00] VITALS: BP 177/75; PULSE 62; RESP 13; O2SAT 100
--- NOTE | 2020-09-21 20:04 | PC.NURSE ---
Pt aaox4, resting on stretcher in NAD, breathing with ease on RA. Pt at bedside. Pt denies pain/discomfort. Pt reports hx of seizures, last seizure 3 years ago and states he takes depakote as prescribed. Pt states I'm good, I'm ready to go home. Pt provided maci terrance per request. Pt NSR on manager camp. Pt offers no complaints/concerns. pt IVF infusing appropriately. Stretcher in lowest locked position, rails raised, call treadwell within reach.
[2020-09-21 21:02] LABS: Acetaminophen LAB 4 mcg/mL (<30)
[2020-09-21 21:09] VITALS: BP 167/75; PULSE 61; RESP 14; O2SAT 97
[2020-09-21 22:14] VITALS: BP 165/75; PULSE 61; RESP 15; O2SAT 96
--- NOTE | 2020-09-21 22:19 | PC.NURSE ---
Dr Ureña and educational interpreter at bedside discussing DC plans for change in medications d/t elevated liver enzymes r/t likely too many medications. Pt informed to f/u outpt with PCP with plan for GI within 1 week. Pt expressing understanding. Pt offers no questions at this time. Dr Ureña informs pt to return to ED if his urine is very dark, abd pain/n/v or skin jaundiced.
== END 2020-09-21 22:41 | disposition home or self-care (01) ==
PROVIDERS: Emergency Provider Internal Medicine; PCP Family Medicine
DX: B17.9 Acute viral hepatitis, unspecified (principal); G40.309 Generalized idiopathic epilepsy and epileptic syndromes, not intractable, without status epilepticus; Z79.899 Other long term (current) drug therapy
CPT/HCPCS: 36415; 80053; 80143; 80164; 82947; 85025; 96365; 96375; 99284

== ENCOUNTER 2021-01-30 21:28 | Emergency (ER) | payer MEDICARE, MEDICAID, SELFPAY ==
[2021-01-30 21:31] VITALS: BP 192/90; PULSE 63; RESP 16; TEMP 37.1; O2SAT 98; BMI 47.0
[2021-01-30 23:05] VITALS: BP 155/70; PULSE 69; RESP 18; TEMP 36.8; O2SAT 98
--- NOTE | 2021-01-30 23:06 | ED_ITS ---
HPI - Fall General Chief Complaint: Fall Stated Complaint: fall Time Seen by Provider: 01/30/21 23:04 Source: patient Limitations: no limitations History of Present Illness HPI Narrative: This is a 55-year-old male with history of chronic back pain, who is on OxyContin 30 mg twice a day, as well as oxycodone/acetaminophen 10/325 q.6 hours, who complains of poorly-controlled back pain after fall today. The patient states he was walking in his legs gave out and he fell. He bumped his head lightly on the edge of the bed but denies loss of consciousness or headache. He denies any neck pain. Denies any chest wall pain, shortness of br eath, abdominal pain. He notes his back pain is worse than usual and not being controlled by his usual medications. He denies any injury to his lower extremities. Related Data Home Medications Medication Instructions Recorded Confirmed amlodipine 10 mg tablet 10 mg PO DAILY 09/21/20 09/21/20 dexlansoprazole 60 mg 1 cap PO DAILY 09/21/20 09/21/20 capsule,biphase delayed release (Dexilant) divalproex 500 mg tablet,delayed 500 mg PO BID 09/21/20 09/21/20 release (Depakote) fluoxetine 20 mg capsule 1 cap PO DAILY 09/21/20 09/21/20 lisinopril 40 mg tablet 40 mg PO DAILY 09/21/20 09/21/20 metoprolol succinate 200 mg 200 mg PO DAILY 09/21/20 09/21/20 tablet,extended release 24 hr oxycodone 30 mg tablet,crush 1 tab PO BID 09/21/20 09/21/20 resistant,extended release 12 hr (OxyContin) oxycodone-acetaminophen 10 mg-325 1 tab PO QID PRN 09/21/20 09/21/20 mg tablet sildenafil 50 mg tablet 1 tab PO DAILY 09/21/20 09/21/20 simvastatin 20 mg tablet 1 tab PO DAILY 09/21/20 09/21/20 Previous Rx's Medication Instructions Recorded diclofenac epolamine 1.3 % 1 patch TOPICAL BID #30 ea 09/21/20 transdermal 12 hour patch levetiracetam 500 mg tablet 500 mg PO BID #60 tab 09/21/20 (Keppra) lidocaine 5 % topical patch 1 patch TOPICAL DAILY #30 ea 09/21/20 (Lidoderm) Allergies Allergy/AdvReac Type Severity Reaction Status Date / Time tramadol [TRAMADOL] Allergy Severe SEIZURES Verified 09/21/20 16:29 metformin [METFORMIN] Allergy Unknown DIARRHEA Verified 09/21/20 16:29 penicillin V Allergy Unknown Rash Verified 09/21/20 16:29 Penicillins Allergy Unknown RASH Verified 09/21/20 16:29 Review of Systems Review of Systems: Yes all other systems are reviewed and are negative Constitutional: Constitutional: Reports as per HPI and Denies fever(s) Eyes: Eyes: Reports as per HPI and Reports no additional eye complaints ENT: Reports system reviewed and no additional complaints, except as documented, Reports as per HPI, Reports dizziness (Resolved now, felt a little dizzy after he fell), Denies nasal congestion, Denies nasal discharge and Denies sore throat Cardiovascular: Cardiovascular: Reports as per HPI, Denies chest pain and Denies dyspnea Respiratory: Respiratory: Reports as per HPI, Denies cough and Denies dyspnea Gastrointestinal: Gastrointestinal: Reports as per HPI, Denies abdominal pain, Denies diarrhea and Denies vomiting Genitourinary: Genitourinary: Reports as per HPI, Denies hematuria, Denies dysuria and Denies urinary frequency Musculoskeletal: Musculoskeletal: Reports no additional musculoskeletal complaints and Denies numbness Integumentary/Breasts: Skin/Breast: Reports as per HPI and Denies rash Neurologic: Reports as per HPI, Reports dizziness (Resolved now, felt a little dizzy after he fell), Denies focal weakness, Denies numbness and Denies Sensory deficit (Neuro) Psychiatric: Psychiatric: Reports no additional psychiatric complaints and Reports as per HPI Endocrine: Endocrine: Reports no additional endocrine complaints and Reports as per HPI Hematologic/Lymphatic: Hematologic/Lymphatic: Reports no additional hematologic/lymphatic complaints, Reports as per HPI and Reports other (No peripheral edema) [facility] Past Medical History Medical History Back pain Hypertension Social History Social History Alcohol intake: former Advance Directives: No Physical Exam Vital Signs: Vital Signs: Last Vital Signs Temp 98.2 F 01/31/21 00:11 Pulse 70 01/31/21 00:11 Resp 17 01/31/21 00:39 BP 147/75 H 01/31/21 00:11 Pulse Ox 97 01/31/21 00:11 Body Mass Index 47.0 Const: Other: Patient moderately obese, appears somewhat histrionic General: cooperative, no acute distress and alert Orientation/consciousness: patient oriented x3 HENMT: Head: Yes normal to inspection Eyes: General: appearance normal, both eyes and all related structures Eyelids: Yes eyelids normal Conjunctivae: conjunctivae normal Pupils: Equal, round and reactive pupils present Neck: Neck: Yes normal visual inspection and Yes supple Chest: Chest palpation & inspection: normal inspection of the chest Resp: Effort & Inspection: normal respiratory effort Auscultation: clear to auscultation bilaterally Cardio: Rate: regular rate Rhythm: regular rhythm Heart sounds: S1 normal heart sound present, S2 normal heart sound present, no gallops, no murmurs and no rubs GI: Palpation (GI): Soft to palpation, nontender and Other GI palpation findings present (Non-distended) Auscultation: normal bowel sounds Skin: General skin exam: no rashes or lesions noted Neuro: General: patient oriented x3, no focal motor deficits and CN's II-XI intact bilaterally Cranial nerves: Yes Equal, round and reactive pupils present Cognition (Neuro): normal cognition Motor exam (neuro): 5/5 motor strength present throughout Sensory Exam: No Sensory deficit (Neuro) Extrem: General: Yes normal to inspection and Yes no pedal edema Psych: Appearance: grossly normal Affect: normal affect MDM - Fall MDM Narrative Medical decision making narrative: Patient is on chronic opiate pain medicine for his back. Patient complained of worsening back pain and seemed somewhat dramatic. Patient was given Dilaudid 2 mg IM but stated it did nothing for him. Patient was given additional 1 mg of Dilaudid IM under the condition that he would go home. Patient was able to stand and transfer. Discharge Plan Discharge Clinical Impression: Chronic back pain, Fall Patient Disposition: Home, Self-Care Instructions: Chronic Back Pain (DC) Additional Instructions: Continue your current pain medicines, as well as yourother medications. Follow up with your primary care physician. Prescriptions: No Action sildenafil 50 mg tablet 1 tab PO DAILY RF: 0 oxycodone-acetaminophen 10-325 mg tablet 1 tab PO QID PRN (Reason: Pain) RF: 0 simvastatin 20 mg tablet 1 tab PO DAILY RF: 0 fluoxetine 20 mg capsule 1 cap PO DAILY RF: 0 Dexilant 60 mg capsule,biphase delayed releas 1 cap PO DAILY RF: 0 oxycodone [OxyContin] 30 mg tablet,oral only,ext.rel.12 hr 1 tab PO BID RF: 0 metoprolol succinate 200 mg Tablet Extended Release 24 Hr 200 mg PO DAILY RF: 0 divalproex [Depakote] 500 mg Tablet,Delayed Release (Dr/Ec) 500 mg PO BID RF: 0 amlodipine 10 mg Tablet 10 mg PO DAILY RF: 0 lisinopril 40 mg Tablet 40 mg PO DAILY RF: 0 levetiracetam [Keppra] 500 mg tablet 500 mg PO BID Qty: 60 RF: 0 diclofenac epolamine 1.3 % patch 12 hour 1 patch topical BID Qty: 30 RF: 0 lidocaine [Lidoderm] 5 % adhesive patch,medicated 1 patch topical DAILY Qty: 30 RF: 0 Interventions: ED Discharge Assessment Last Done: 01/31/21 00:58 Discharge Date/Time: 01/31/21 01:00
[2021-01-30 23:29] VITALS: RESP 17
[2021-01-30] MEDS: HYDROmorphone HCl 2 MG/ML VIAL IM (23:29)
[2021-01-31 00:11] VITALS: BP 147/75; PULSE 70; RESP 20; TEMP 36.8; O2SAT 97
--- NOTE | 2021-01-31 00:11 | PC.NURSE ---
PT VITALS TAKEN BY PCT. PT ASKING TO TALK TO MD. PT ROCKING BACK AND FORTH IN THE BED. WILL NOTIFY .
[2021-01-31 00:39] VITALS: RESP 17
[2021-01-31] MEDS: HYDROmorphone HCl 1 MG/ML SYRINGE IM (00:40)
== END 2021-01-31 01:00 | disposition home or self-care (01) ==
PROVIDERS: Emergency Provider Emergency Medicine; PCP Family Medicine
DX: M54.5 Low back pain (principal); Z79.899 Other long term (current) drug therapy
CPT/HCPCS: 96372; 99284; J1170

== ENCOUNTER 2021-03-18 17:34 | Emergency (ER) | payer MEDICARE, MEDICAID, SELFPAY ==
--- NOTE | ~2021-03-18 | XR_ITS ---
EXAMINATION: XR LUMBOSACRAL SPINE CLINICAL INFORMATION: Fall. Low back pain. COMPARISON: Lumbar spine radiographs dated 10/18/2018. TECHNIQUE: Three views of the lumbosacral spine. FINDINGS: Posterior stabilization hardware redemonstrated at L3-L4. No acute hardware or osseous fracture. No perihardware lucency to suggest loosening or infection. No new loss of vertebral body height. Multilevel loss of intervertebral disc height with endplate osteophytes, unchanged. Bilateral facet arthropathy at L4-L5, progressed when compared to the prior examination. No osseous erosion. Right upper quadrant surgical clips. XR/XR lumbar spine 2-3V IMPRESSION: 1. Posterior stabilization hardware at L3-L4 without evidence of hardware complication. 2. Multilevel degenerative disc disease appears similar when compared to the prior examination. 3. Bilateral facet arthropathy at L4-L5, progressed when compared to the prior examination.
--- NOTE | ~2021-03-18 | XR_ITS ---
EXAMINATION: XR ANKLE, LEFT XR FOOT, LEFT CLINICAL INFORMATION: Fall. Pain. COMPARISON: None TECHNIQUE: AP, oblique, and lateral views of the left ankle and left foot. FINDINGS: No acute fracture or dislocation. The ankle mortise is maintained. No joint space narrowing or marginal osteophytes. No osseous erosion. No abnormal soft tissue calcification. Mild circumferential soft tissue swelling at the ankle. XR/XR foot LT min 3V IMPRESSION: Mild circumferential soft tissue swelling without acute osseous abnormality.
--- NOTE | ~2021-03-18 | XR_ITS ---
EXAMINATION: XR ANKLE, LEFT XR FOOT, LEFT CLINICAL INFORMATION: Fall. Pain. COMPARISON: None TECHNIQUE: AP, oblique, and lateral views of the left ankle and left foot. FINDINGS: No acute fracture or dislocation. The ankle mortise is maintained. No joint space narrowing or marginal osteophytes. No osseous erosion. No abnormal soft tissue calcification. Mild circumferential soft tissue swelling at the ankle. XR/XR ankle LT 2V IMPRESSION: Mild circumferential soft tissue swelling without acute osseous abnormality.
[2021-03-18 17:44] VITALS: BP 156/95; PULSE 73; RESP 16; TEMP 36.7; O2SAT 96; BMI 47.0
[2021-03-18] MEDS: Lidocaine 4 % Patch ADH..PATCH 1 PATCH TRANSDERMA (21:24)
[2021-03-18] MEDS: Ketorolac Tromethamine 15 MG/ML VIAL 30 MG IM (21:25)
[2021-03-18] MEDS: Cyclobenzaprine HCl 10 MG TABLET PO (21:25)
--- NOTE | 2021-03-18 21:44 | ED_ITS ---
HPI - Fall General Chief Complaint: Fall Stated Complaint: back pain Time Seen by Provider: 03/18/21 20:52 Source: patient Mode of arrival: ambulatory History of Present Illness HPI Narrative: 55-year-old male with past medical history of hypertension, back pain on chronic opiates presenting to the ED complaining left buttock/low back and left foot pain/swelling s/p mechanical slip and fall down 4 steps yesterday. Reports slipped on stairs and landed on buttock, denies head trauma or LOC. Denies symptoms prior to fall. Patient is minimally ambulatory at baseline, ambulates with walker/wheelchair. Reports a numbness radiating down left lower extremity. Denies weakness, fever, chills, urinary incontinence/retention MD complaint: fall Related Data Home Medications Medication Instructions Recorded Confirmed amlodipine 10 mg tablet 10 mg PO DAILY 09/21/20 09/21/20 dexlansoprazole 60 mg 1 cap PO DAILY 09/21/20 09/21/20 capsule,biphase delayed release (Dexilant) divalproex 500 mg tablet,delayed 500 mg PO BID 09/21/20 09/21/20 release (Depakote) fluoxetine 20 mg capsule 1 cap PO DAILY 09/21/20 09/21/20 lisinopril 40 mg tablet 40 mg PO DAILY 09/21/20 09/21/20 metoprolol succinate 200 mg 200 mg PO DAILY 09/21/20 09/21/20 tablet,extended release 24 hr oxycodone 30 mg tablet,crush 1 tab PO BID 09/21/20 09/21/20 resistant,extended release 12 hr (OxyContin) oxycodone-acetaminophen 10 mg-325 1 tab PO QID PRN 09/21/20 09/21/20 mg tablet sildenafil 50 mg tablet 1 tab PO DAILY 09/21/20 09/21/20 simvastatin 20 mg tablet 1 tab PO DAILY 09/21/20 09/21/20 Previous Rx's Medication Instructions Recorded diclofenac epolamine 1.3 % 1 patch TOPICAL BID #30 ea 09/21/20 transdermal 12 hour patch levetiracetam 500 mg tablet 500 mg PO BID #60 tab 09/21/20 (Keppra) lidocaine 5 % topical patch 1 patch TOPICAL DAILY #30 ea 09/21/20 (Lidoderm) cyclobenzaprine 5 mg tablet 5 mg PO Q8H PRN 5 Days #14 tab 03/18/21 lidocaine 5 % topical patch 1 patch TOPICAL DAILY PRN #30 ea 03/18/21 (Lidoderm) MDD remove after 12 hours naproxen 500 mg tablet 500 mg PO BID PRN 10 Days #20 tab 03/18/21 Allergies Allergy/AdvReac Type Severity Reaction Status Date / Time tramadol [TRAMADOL] Allergy Severe SEIZURES Verified 03/18/21 19:53 metformin [METFORMIN] Allergy Unknown DIARRHEA Verified 03/18/21 19:53 penicillin V Allergy Unknown Rash Verified 03/18/21 19:53 Penicillins Allergy Unknown RASH Verified 03/18/21 19:53 Review of Systems Review of Systems: Constitutional: No Fever, No Chills, No Fatigue, No Malaise ENT/Mouth: No Ear Pain, No Nasal Congestion, No sore throat Eyes: No Eye Pain, No Swelling, No Redness Cardiovascular: No Chest Pain, No SOB Respiratory: No Cough, No Dyspnea Gastrointestinal: No Nausea, No Vomiting, No Diarrhea, No Constipation, No Abdominal pain, No Hematochezia, No Melena Genitourinary: No Urinary Frequency, No Hematuria,No Urinary Incontinence/retention, No Flank Pain, No Urinary Flow Changes Musculoskeletal: + joint pain, No Myalgias, + Joint Swelling Skin: No Skin Lesions, No rash Neuro: No Weakness, + Numbness, No Paresthesias, No Loss of Consciousness, No Dizziness, No Headache Yes all other systems are reviewed and are negative Neurologic: Denies Sensory deficit (Neuro) [facility] Past Medical History Attestation statement: The following information was validated with the patient. Medical History Back pain Hypertension Social History Social History Alcohol intake: former Advance Directives: No Advance Directives Information Provided: No Physical Exam Vital Signs: Vital Signs: Last Vital Signs Temp 98.1 F 03/18/21 17:44 Pulse 73 03/18/21 17:44 Resp 16 03/18/21 17:44 BP 156/95 H 03/18/21 17:44 Pulse Ox 96 03/18/21 17:44 Body Mass Index 47.0 Const: General: cooperative Nutritional Appearance: overweight Orientation/consciousness: patient oriented x3 Limitations: no limitations HENMT: Head: Yes normal to inspection and Yes atraumatic Ears: hearing grossly normal bilaterally General nose exam: Normal external nose present Face and sinus: Yes normal facial exam Eyes: General: appearance normal, both eyes and all related structures EOM: EOMs intact bilaterally Neck: Other: No midline cervical spinous tenderness Neck: Yes normal visual inspection Chest: Chest palpation & inspection: no crepitus and no tenderness Resp: Effort & Inspection: normal respiratory effort and no respiratory distress Cardio: Rate: regular rate Peripheral pulses: dorsalis pedis present GI: Inspection: Yes normal to inspection Palpation (GI): Soft to palpation and nontender Back/Spine/Pelvis: Other: No midline thoracic/lumbar spinous tenderness/step- off or deformity. + bilateral paraspinal lumbar tenderness to palpation and left buttock MSK tenderness palpation Skin: Rashes: no rashes Wounds: no wounds Neuro: Other: SILT. No saddle anesthesia. Patient stood and pivoted without difficulty General: patient oriented x3 and tone normal Motor exam (neuro): 5/5 motor strength present throughout Sensory Exam: No Sensory deficit (Neuro) Extrem: Other: Left foot with notable swelling and lateral abrasion. Diffusely tender. Toe ROM limited secondary to pain. Neurovascularly intact, sensation intact to light touch. Ankle is nontender Course Course Course Narrative: -2144--XR foot LT min 3V / XR ankle LT 2V IMPRESSION: Mild circumferential soft tissue swelling without acute osseous abnormality.? XR lumbar spine 2-3V IMPRESSION: 1. Posterior stabilization hardware at L3-L4 without evidence of hardware complication. 2. Multilevel degenerative disc disease appears similar when compared to the prior examination. 3. Bilateral facet arthropathy at L4-L5, progressed when compared to the prior examination. >> patient placed in Ralf wrap for comfort/stability Per [facility] reviewed patient filled 100 pills of 10mg Oxycodone/Tylenol on 02/24 which was a 25 day supply. Is to follow-up with PCP. Worrisome signs and symptoms and strict return precautions discussed MDM - Fall MDM Narrative Medical decision making narrative: 55-year-old male with past medical history of hypertension, back pain on chronic opiates presenting to the ED complaining left buttock/low back and left foot pain/swelling s/p mechanical slip and fall down 4 steps yesterday. On exam vital signs stable, NAD, no midline spinous tenderness throughout, left foot with noted swelling and tenderness. r/o Fra cture versus sprain. Concern for sciatica/MSK pain/strain. Lower concern for cauda equina, cord compression Plan: Lumbar spine x-ray, left ankle/x-ray, symptomatic treatment, re-evaluate Medical Records Attestation: I reviewed the patient's medical records. Lab Data Attestation: I reviewed the patient's lab results. Discharge Plan Discharge Clinical Impression: Sciatica, Foot contusion Patient Disposition: Home, Self-Care Instructions: Sciatica (ED), Foot Contusion (ED) Additional Instructions: Show any fractures/breaks, they do show soft tissue swelling of your foot and degenerative disc changes of your back Wear Ralf wrap at home as needed for comfort/stability Flexeril is a muscle relaxer, take at night as it makes you drowsy, do not drive, drink alcohol, or operate machinery while taking it Naproxen as an anti-inflammatory / pain medication, take with food Lidoderm patches are numbing patches, apply to painful area If symptoms persist or worsen, pain becomes unbearable, you developed urinary retention or incontinence, or weakness return to the ED Prescriptions: New lidocaine [Lidoderm] 5 % adhesive patch,medicated 1 patch topical DAILY MDD remove after 12 hours PRN (Reason: pain) Qty: 30 RF: 0 cyclobenzaprine 5 mg tablet 5 mg PO Q8H PRN (Reason: pain (scale score 7-10)) 5 Days Qty: 14 RF: 0 naproxen 500 mg tablet 500 mg PO BID PRN (Reason: pain) 10 Days Qty: 20 RF: 0 No Action sildenafil 50 mg tablet 1 tab PO DAILY RF: 0 oxycodone-acetaminophen 10-325 mg tablet 1 tab PO QID PRN (Reason: Pain) RF: 0 simvastatin 20 mg tablet 1 tab PO DAILY RF: 0 fluoxetine 20 mg capsule 1 cap PO DAILY RF: 0 Dexilant 60 mg capsule,biphase delayed releas 1 cap PO DAILY RF: 0 oxycodone [OxyContin] 30 mg tablet,oral only,ext.rel.12 hr 1 tab PO BID RF: 0 metoprolol succinate 200 mg Tablet Extended Release 24 Hr 200 mg PO DAILY RF: 0 divalproex [Depakote] 500 mg Tablet,Delayed Release (Dr/Ec) 500 mg PO BID RF: 0 amlodipine 10 mg Tablet 10 mg PO DAILY RF: 0 lisinopril 40 mg Tablet 40 mg PO DAILY RF: 0 levetiracetam [Keppra] 500 mg tablet 500 mg PO BID Qty: 60 RF: 0 diclofenac epolamine 1.3 % patch 12 hour 1 patch topical BID Qty: 30 RF: 0 lidocaine [Lidoderm] 5 % adhesive patch,medicated 1 patch topical DAILY Qty: 30 RF: 0 Referrals: Physician,Unknown J [Primary Care Provider] - 2 days
[2021-03-18 22:03] VITALS: RESP 17
== END 2021-03-18 22:41 | disposition home or self-care (01) ==
PROVIDERS: Emergency Provider Internal Medicine
DX: S90.32XA Contusion of left foot, initial encounter (principal); M54.30 Sciatica, unspecified side; I10 Essential (primary) hypertension; W01.0XXA Fall on same level from slipping, tripping and stumbling without subsequent striking against object, initial encounter; Y93.9 Activity, unspecified; Y92.9 Unspecified place or not applicable; Y99.9 Unspecified external cause status; Z79.891 Long term (current) use of opiate analgesic
CPT/HCPCS: 72100; 73600; 73630; 96372; 99284; J1885

== ENCOUNTER 2021-03-30 16:55 | Inpatient (IN) | payer MEDICARE, MEDICAID, SELFPAY ==
--- NOTE | ~2021-03-30 | XR_ITS ---
EXAMINATION: 1. RADIOGRAPHS LEFT ANKLE 2. RADIOGRAPHS LEFT FOOT CLINICAL INFORMATION: Pain COMPARISON: Radiographs of the left ankle and foot 03/18/2021 TECHNIQUE: 3 views of the left ankle and 3 views of the left foot were obtained. FINDINGS: Visualized portion of the distal tibia and fibula demonstrate no fracture. Ankle mortise is maintained. Mild diffuse soft tissue swelling of the ankle is again demonstrated. No gross ankle joint effusion. Bones of the midfoot are well aligned. No tarsal, metatarsal or phalangeal fracture. Mild degenerative changes of the first MTP and scattered IP joints. There is mild soft tissue swelling of the dorsal forefoot. XR/XR ankle LT min 3V IMPRESSION: Soft tissue swelling of the left ankle and foot without fracture.
--- NOTE | ~2021-03-30 | XR_ITS ---
EXAMINATION: 1. RADIOGRAPHS LEFT ANKLE 2. RADIOGRAPHS LEFT FOOT CLINICAL INFORMATION: Pain COMPARISON: Radiographs of the left ankle and foot 03/18/2021 TECHNIQUE: 3 views of the left ankle and 3 views of the left foot were obtained. FINDINGS: Visualized portion of the distal tibia and fibula demonstrate no fracture. Ankle mortise is maintained. Mild diffuse soft tissue swelling of the ankle is again demonstrated. No gross ankle joint effusion. Bones of the midfoot are well aligned. No tarsal, metatarsal or phalangeal fracture. Mild degenerative changes of the first MTP and scattered IP joints. There is mild soft tissue swelling of the dorsal forefoot. XR/XR foot LT min 3V IMPRESSION: Soft tissue swelling of the left ankle and foot without fracture.
--- NOTE | ~2021-03-30 | CT_ITS ---
EXAMINATION: CT OF THE LEFT FOOT WITHOUT CONTRAST CLINICAL INFORMATION: Left foot swelling. Rule out gas. COMPARISON: None TECHNIQUE: Multidetector volumetric imaging was obtained through the left foot without contrast. Multiplanar reformatted images in coronal and sagittal orientations were submitted. This CT examination was performed using dose optimization techniques as appropriate, variously including the following: *Automated exposure control *Adjustment of mA and/or kV according to patient size (this includes techniques or standardized protocols for targeted exams where dose is matched to indication/reason for exam; i.e. extremities or head) *Use of iterative reconstruction technique DLP: 161 mGy-cm FINDINGS: There is significant soft tissue swelling at the left foot, most pronounced along the dorsal aspect of the midfoot. A intermediate density collection in this region measures approximately 2.5 x 5.5 x 1 cm (transverse by longitudinal by thickness) and may correspond to a hematoma. Abscess cannot be excluded. No subcutaneous gas. No radiodense foreign bodies. Underlying bones are normal in appearance without erosion. No fracture or malalignment. Mild osteoarthritis is present at the talocrural joint and at the medial aspect of the posterior facet. Mild first MTP osteoarthritis. Interphalangeal joints are unremarkable. There is mild atrophy and fatty replacement of the intrinsic foot musculature. Tendons are grossly unremarkable. CT/CT foot LT wo con IMPRESSION: Marked soft tissue swelling in the dorsal aspect of the left midfoot. An ill-defined collection within the dorsal subcutaneous fat could correspond to hematoma. Abscess is also possible. No subcutaneous gas.
[2021-03-30 17:29] VITALS: BP 128/77; PULSE 55; RESP 18; TEMP 36.6; O2SAT 97; BMI 47.0
[2021-03-30 18:21] LABS: MANUAL DIFF FLAG NO
[2021-03-30 18:22] LABS: Basophils Percent Auto 0.6 % (0-2); Eosinophils Absolute Auto 0.1 X10*3/uL (0.0-0.4); Eosinophils Percent Auto 1.3 % (0-4); Hematocrit 34.6 % (42.0-52.0); Hemoglobin 11.2 g/dl (14.0-18.0); Imm Gran Abs Auto 0.02 X10*3/uL (0.00-0.03); Imm Gran Pct Auto 0.3 % (0.0-0.4); Lymphocytes Absolute Auto 2.1 X10*3/uL (1.2-4.9); Lymphocytes Percent Auto 28.9 % (20-40); Mean Corpuscular HGB Conc 32.4 g/dl (31.0-36.0); Mean Corpuscular Hemoglobin 27.9 pg (27.0-33.0); Mean Corpuscular Volume 86.3 fL (80.0-98.0); Mean Platelet Volume 9.6 fL (9.4-12.4); Monocytes Absolute Auto 0.6 X10*3/uL (0.1-1.2); Monocytes Percent Auto 8.2 % (2-11); Neutrophils Absolute Auto 4.4 x10*3/uL (2.0-8.3); Neutrophils Percent Auto 60.7 % (45-73); Platelet Count 373 X10*3/uL (160-400); Red Blood Count 4.01 X10*6/uL (4.60-5.80); Red Cell Distribution Width 15.2 % (11.0-16.0); White Blood Count 7.2 X10*3/uL (4.8-10.8)
[2021-03-30 18:27] LABS: Prothrombin Time 11.2 SEC (9.9-13.0)
[2021-03-30 18:30] LABS: Partial Thromboplastin Time 31.2 SEC (24.1-38.0)
[2021-03-30 18:38] LABS: Alanine Aminotransferase 60 U/L (0-40); Albumin Level 3.6 g/dL (3.5-5.0); Alkaline Phosphatase 132 U/L (39-117); Anion Gap 11 (12-20); Aspartate Amino Transferase 50 U/L (5-37); Bilirubin Direct < 0.2 mg/dL (0.0-0.5); Bilirubin Total 0.2 mg/dL (0.0-1.0); Blood Urea Nitrogen 13 mg/dL (9-16); Calcium 8.6 mg/dL (8.4-10.2); Carbon Dioxide 25 mmol/L (22-29); Chloride 107 mmol/L (96-108); Creatinine Clr Calc Pharmacy 120.7; Estimated Glomerular Filt Rate > 60; Glucose Random 116 mg/dL (60-115); Potassium 4.1 mmol/L (3.3-5.1); Sodium 139 mmol/L (135-145)
[2021-03-30 18:41] LABS: Lactic Acid 1.2 mmol/L (0.5-2.0)
--- NOTE | 2021-03-30 20:40 | ED_ITS ---
HPI - General Adult General Chief complaint: Wound/Laceration Stated complaint: left foot pain and swelling Time Seen by Provider: 03/30/21 20:06 Source: patient Limitations: no limitations History of Present Illness HPI narrative: This is a 55 years old male presented to the emergency department complaining of left foot pain and swelling. Initially was seen in this emergency department on Nov he was then used with the foot contusion discharge. Three days later he was hospitalized [facility]. Patient was given IV antibiotic for about 6 days. He was discharged 3 days ago now comes here complaining of increasing swelling and pain Onset (ago): day(s) (3) Location: lower extremity (left foot) Radiation: non-radiation Severity: moderate Quality: dull Pain Consistency: constant Exacerbating factors: none Related Data Home Medications Medication Instructions Recorded Confirmed amlodipine 10 mg tablet 10 mg PO DAILY 09/21/20 09/21/20 dexlansoprazole 60 mg 1 cap PO DAILY 09/21/20 09/21/20 capsule,biphase delayed release (Dexilant) divalproex 500 mg tablet,delayed 500 mg PO BID 09/21/20 09/21/20 release (Depakote) fluoxetine 20 mg capsule 1 cap PO DAILY 09/21/20 09/21/20 lisinopril 40 mg tablet 40 mg PO DAILY 09/21/20 09/21/20 metoprolol succinate 200 mg 200 mg PO DAILY 09/21/20 09/21/20 tablet,extended release 24 hr oxycodone 30 mg tablet,crush 1 tab PO BID 09/21/20 09/21/20 resistant,extended release 12 hr (OxyContin) oxycodone-acetaminophen 10 mg-325 1 tab PO QID PRN 09/21/20 09/21/20 mg tablet sildenafil 50 mg tablet 1 tab PO DAILY 09/21/20 09/21/20 simvastatin 20 mg tablet 1 tab PO DAILY 09/21/20 09/21/20 Previous Rx's Medication Instructions Recorded diclofenac epolamine 1.3 % 1 patch TOPICAL BID #30 ea 09/21/20 transdermal 12 hour patch levetiracetam 500 mg tablet 500 mg PO BID #60 tab 09/21/20 (Keppra) lidocaine 5 % topical patch 1 patch TOPICAL DAILY #30 ea 09/21/20 (Lidoderm) cyclobenzaprine 5 mg tablet 5 mg PO Q8H PRN 5 Days #14 tab 03/18/21 lidocaine 5 % topical patch 1 patch TOPICAL DAILY PRN #30 ea 03/18/21 (Lidoderm) MDD remove after 12 hours naproxen 500 mg tablet 500 mg PO BID PRN 10 Days #20 tab 03/18/21 Allergies Allergy/AdvReac Type Severity Reaction Status Date / Time tramadol [TRAMADOL] Allergy Severe SEIZURES Verified 03/18/21 19:53 metformin [METFORMIN] Allergy Unknown DIARRHEA Verified 03/18/21 19:53 penicillin V Allergy Unknown Rash Verified 03/18/21 19:53 Penicillins Allergy Unknown RASH Verified 03/18/21 19:53 Review of Systems Review of Systems: Yes all other systems are reviewed and are negative Constitutional: Constitutional: Reports fatigue Cardiovascular: Cardiovascular: Denies chest pain, Denies chest pain at rest and Denies chest pain with activity Respiratory: Respiratory: Reports no additional respiratory complaints Gastrointestinal: Gastrointestinal: Reports no additional gastrointestinal complaints Musculoskeletal: Musculoskeletal: Reports no additional musculoskeletal complaints Neurologic: Reports system reviewed and no additional complaints, except as documented Endocrine: Endocrine: Reports fatigue PMFSH Past Medical History Medical History Back pain Hypertension Social History Social History Alcohol intake: former Advance Directives: No Advance Directives Information Provided: Yes Physical Exam Vital Signs: Vital Signs: Last Vital Signs Temp 98 F 03/30/21 17:29 Pulse 55 03/30/21 17:29 Resp 18 03/30/21 17:29 BP 128/77 03/30/21 17:29 Pulse Ox 97 03/30/21 17:29 Body Mass Index 47.0 Const: General: cooperative and anxious Nutritional Appearance: average body habitus Orientation/consciousness: patient oriented x3 HENMT: Head: Yes normal to inspection Face and sinus: Yes normal facial exam Mouth: Normal oral and palatal mucosa present Throat: Yes posterior oropharynx normal Neck: Neck: Yes normal visual inspection, Yes full ROM and Yes no lymphadenopathy Thyroid: Thyroid normal Chest: Chest palpation & inspection: normal inspection of the chest Resp: Effort & Inspection: normal respiratory effort and able to speak in complete sentences Auscultation: clear to auscultation bilaterally Cardio: Jugular venous distension: no JVD Rate: regular rate Rhythm: regular rhythm GI: Inspection: Yes normal to inspection Palpation (GI): Soft to palpation, not firm, nontender and no guarding Skin: General skin exam: no rashes or lesions noted, elasticity normal and turgor normal Rashes: no rashes Neuro: General: patient oriented x3 Extrem: Other: left footswelling tenderness,there is a snmall wound in the lateral aspect of the foot Course Course Course Narrative: I review the record from [facility] ,at [facility] the d.d. diagnosis was cellulitis vs hematoma,he was give IV Vanco initially,he was seen in consult by ID Dr Villaseñor on 03/22/21 she recommend empiric AB with vanco X 7 Days then change top po either doxy or clinda,but upon reexam after 2 Days ID decide to stop AB and pt was sent home on pain meds only oxycodone 10 Q 6 h #20 At d/c he was told to follow up with Dr Giorgi Leach in 1 Week Reevaluation(s) Reevaluation #1: Patient he is complaining of severe foot pain CT scan of the foot shows a collection I think is unlikely being on hematoma after 2 weeks from the injurymore likely is an abscess , he has elevated sed rate, elevated CRP, as type 2 diabetes, the foot is getting worse. At this time we will admit the patient for IV antibiotic, I page orthopedist as well Reevaluation #2: I sent tiger text message to Ortho Kiley Galdamez Reevaluation #3: I performe Need aspiration of the fluid collection under US with 18 tigre needle I obtained very dark materia 3 cc that I sent for C and S Procedures EJ/Peripheral Line Arm L: Time Out Performed: Yes Skin Cleansed in Sterile Fashion: Yes Size (gauge): 20 Patient Tolerated Procedure: well Additional Comments: Difficult IV access >Under ultrasound guided with a long probe cannulated the left deep brachial vein with 20 gauge 1 3/4 Introcan catheter good blood return /good flash Medical Decision Making Lab Data Result diagrams: 03/30/21 18:14 03/30/21 18:14 Labs: Lab Results 03/30/21 03/30/21 03/30/21 Range/Units 18:14 18:14 18:14 WBC 7.2 (4.8-10.8) X10*3/uL RBC 4.01 L (4.60-5.80) X10*6/uL Hgb 11.2 L (14.0-18.0) g/dl Hct 34.6 L (42.0-52.0) % MCV 86.3 (80.0-98.0) fL MCH 27.9 (27.0-33.0) pg MCHC 32.4 (31.0-36.0) g/dl RDW 15.2 (11.0-16.0) % Plt Count 373 (160-400) X10*3/uL MPV 9.6 (9.4-12.4) fL Immature Gran % (Auto) 0.3 (0.0-0.4) % Neut % (Auto) 60.7 (45-73) % Lymph % (Auto) 28.9 (20-40) % Bennett % (Auto) 8.2 (2-11) % Eos % (Auto) 1.3 (0-4) % Baso % (Auto) 0.6 (0-2) % Lymph # (Auto) 2.1 (1.2-4.9) X10*3/uL Bennett # (Auto) 0.6 (0.1-1.2) X10*3/uL Eos # (Auto) 0.1 (0.0-0.4) X10*3/uL Baso # (Auto) 0.0 (0.0-0.2) X10*3/uL Abs Immat Gran (auto) 0.02 (0.00-0.03) X10*3/uL Absolute Neuts (auto) 4.4 (2.0-8.3) x10*3/uL Absolute Nucleated RBC 0.000 (0.0-0.012) X10*3/uL Nucleated RBC % (auto) 0.0 (0.0-0.2) /100WBC ESR (0-15) MM/HR PT 11.2 (9.9-13.0) SEC INR 1.0 (0.9-1.1) APTT 31.2 (24.1-38.0) SEC Sodium 139 (135-145) mmol/L Potassium 4.1 (3.3-5.1) mmol/L Chloride 107 (96-108) mmol/L Carbon Dioxide 25 (22-29) mmol/L Anion Gap 11 L (12-20) BUN 13 (9-16) mg/dL Creatinine 0.92 (0.5-1.4) mg/dL Estim Creat Clear Calc 120.7 Estimated GFR > 60 Random Glucose 116 H D (60-115) mg/dL Lactic Acid (0.5-2.0) mmol/L Calcium 8.6 (8.4-10.2) mg/dL Total Bilirubin 0.2 (0.0-1.0) mg/dL Direct Bilirubin < 0.2 (0.0-0.5) mg/dL AST 50 H D (5-37) U/L ALT 60 H (0-40) U/L Alkaline Phosphatase 132 H D (39-117) U/L C-Reactive Protein 3.86 H (< or = 0.50) mg/dL Total Protein 7.0 (6.5-8.0) g/dL Albumin 3.6 (3.5-5.0) g/dL COVID-19 ([facility]) (Negative) COVID-19 Clin Com 03/30/21 03/30/21 03/30/21 Range/Units 18:14 18:14 22:40 WBC (4.8-10.8) X10*3/uL RBC (4.60-5.80) X10*6/uL Hgb (14.0-18.0) g/dl Hct (42.0-52.0) % MCV (80.0-98.0) fL MCH (27.0-33.0) pg MCHC (31.0-36.0) g/dl RDW (11.0-16.0) % Plt Count (160-400) X10*3/uL MPV (9.4-12.4) fL Immature Gran % (Auto) (0.0-0.4) % Neut % (Auto) (45-73) % Lymph % (Auto) (20-40) % Bennett % (Auto) (2-11) % Eos % (Auto) (0-4) % Baso % (Auto) (0-2) % Lymph # (Auto) (1.2-4.9) X10*3/uL Bennett # (Auto) (0.1-1.2) X10*3/uL Eos # (Auto) (0.0-0.4) X10*3/uL Baso # (Auto) (0.0-0.2) X10*3/uL Abs Immat Gran (auto) (0.00-0.03) X10*3/uL Absolute Neuts (auto) (2.0-8.3) x10*3/uL Absolute Nucleated RBC (0.0-0.012) X10*3/uL Nucleated RBC % (auto) (0.0-0.2) /100WBC ESR 56 H (0-15) MM/HR PT (9.9-13.0) SEC INR (0.9-1.1) APTT (24.1-38.0) SEC Sodium (135-145) mmol/L Potassium (3.3-5.1) mmol/L Chloride (96-108) mmol/L Carbon Dioxide (22-29) mmol/L Anion Gap (12-20) BUN (9-16) mg/dL Creatinine (0.5-1.4) mg/dL Estim Creat Clear Calc Estimated GFR Random Glucose (60-115) mg/dL Lactic Acid 1.2 (0.5-2.0) mmol/L Calcium (8.4-10.2) mg/dL Total Bilirubin (0.0-1.0) mg/dL Direct Bilirubin (0.0-0.5) mg/dL AST (5-37) U/L ALT (0-40) U/L Alkaline Phosphatase (39-117) U/L C-Reactive Protein (< or = 0.50) mg/dL Total Protein (6.5-8.0) g/dL Albumin (3.5-5.0) g/dL COVID-19 ([facility]) Negative (Negative) COVID-19 Clin Com See Note Imaging Data ct foot: Radiologist's impression: *Adjustment of mA and/or kV according to patient size (this includes techniques or standardized protocols for targeted exams where dose is matched to indication/reason for exam; i.e. extremities or head) *Use of iterative reconstruction technique DLP: 161 mGy-cm FINDINGS: There is significant soft tissue swelling at the left foot, most pronounced along the dorsal aspect of the midfoot. A intermediate density collection in this region measures approximately 2.5 x 5.5 x 1 cm (transverse by longitudinal by thickness) and may correspond to a hematoma. Abscess cannot be excluded. No subcutaneous gas. No radiodense foreign bodies. Underlying bones are normal in appearance without erosion. No fracture or malalignment. Mild osteoarthritis is present at the talocrural joint and at the medial aspect of the posterior facet. Mild first MTP osteoarthritis. Interphalangeal joints are unremarkable. There is mild atrophy and fatty replacement of the intrinsic foot musculature. Tendons are grossly unremarkable.? CT/CT foot LT wo con IMPRESSION: Marked soft tissue swelling in the dorsal aspect of the left midfoot. An ill-defined collection within the dorsal subcutaneous fat could correspond to hematoma. Abscess is also possible. No subcutaneous gas. Discharge Plan Discharge Clinical Impression: Swelling of left foot, Abscess of left foot, Cellulitis of left foot Patient Disposition: Admitted As Inpatient
[2021-03-30] MEDS: oxyCODONE HCl Immed Release 5 MG TABLET 10 MG PO (21:12)
[2021-03-30 21:31] LABS: C Reactive Protein 3.86 mg/dL (< or = 0.50)
[2021-03-30 22:13] LABS: Erythrocyte Sedimentation Rate 56 MM/HR (0-15)
[2021-03-30 23:01] LABS: COVID-19 Test Negative (Negative)
--- NOTE | 2021-03-30 23:12 | PC.NURSE ---
first call to [facility] for dr mota was at 2230, spoke with answering service. No call was returned. Called again ar 2310, was on hold for 5 minutes before answer. Service reports reaching out to Kiley PORTILLO again. Waiting to hear back
[2021-03-30] MEDS: HYDROmorphone HCl 1 MG/ML SYRINGE IVPUSH (23:55)
[2021-03-31] VITALS (11 sets, daily range): BP systolic 123–180; BP diastolic 61–87; PULSE 53–69; RESP 14–18; TEMP 36.4–37.5; O2SAT 95–99
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
[2021-03-31] MEDS: Lidocaine HCl 1 % MPF 5 ML VIAL SUBCUT (00:08)
[2021-03-31] MEDS: vancomycin HCL 1,000 MG in 0.9 % Sodium Chloride 250 ML 270 MG IV ×2 (00:31→14:45)
[2021-03-31] MEDS: HYDROmorphone HCl 1 MG/ML SYRINGE IVPUSH ×5 (00:37→22:50)
[2021-03-31] MEDS: 0.9 % Sodium Chloride Flush 3 ML SYRINGE IVFLUSH (01:00)
--- NOTE | 2021-03-31 01:32 | PC.NURSE ---
Call never returned from ortho, called back to service. after waiting 4 minutes for answer, changed request to routine consult, per dr mota.
--- NOTE | 2021-03-31 03:00 | PC.NURSE ---
At approximately 0100 i called the [facility] pharmacy to inquire about ordered Azactam. They informed that this medicine was available only in pharmacy. I notified the nursing postal supervisor of this who requested I notify hospitalist. [place] text was sent to hospitalist regarding this at approximately 0200.
[2021-03-31] MEDS: oxyCODONE HCl Immed Release 5 MG TABLET PO ×2 (03:44→09:54)
[2021-03-31] MEDS: Acetaminophen 325 MG TABLET 650 MG PO ×2 (03:45→18:06)
[2021-03-31] MEDS: HYDROmorphone HCl 0.5 MG/0.5 ML SYRINGE IVPUSH (06:54)
[2021-03-31 06:59] LABS: MANUAL DIFF FLAG NO
[2021-03-31 07:00] LABS: Basophils Percent Auto 0.4 % (0-2); Eosinophils Absolute Auto 0.1 X10*3/uL (0.0-0.4); Eosinophils Percent Auto 1.5 % (0-4); Hematocrit 33.9 % (42.0-52.0); Imm Gran Abs Auto 0.02 X10*3/uL (0.00-0.03); Imm Gran Pct Auto 0.3 % (0.0-0.4); Lymphocytes Absolute Auto 1.5 X10*3/uL (1.2-4.9); Lymphocytes Percent Auto 20.2 % (20-40); Mean Corpuscular HGB Conc 32.4 g/dl (31.0-36.0); Mean Corpuscular Hemoglobin 28.1 pg (27.0-33.0); Mean Corpuscular Volume 86.5 fL (80.0-98.0); Mean Platelet Volume 9.2 fL (9.4-12.4); Monocytes Absolute Auto 0.8 X10*3/uL (0.1-1.2); Monocytes Percent Auto 11.1 % (2-11); Neutrophils Absolute Auto 4.8 x10*3/uL (2.0-8.3); Neutrophils Percent Auto 66.5 % (45-73); Platelet Count 338 X10*3/uL (160-400); Red Blood Count 3.92 X10*6/uL (4.60-5.80); Red Cell Distribution Width 15.3 % (11.0-16.0); White Blood Count 7.2 X10*3/uL (4.8-10.8)
--- NOTE | 2021-03-31 07:11 | PHA.PROG ---
Admission Date/Time: March 30, 2021 23:34 Indication: Left foot cellulitis Weight in k.078 kg Adjusted body weight in K.091 kg [place] body weight in K.1 kg Obesity Dosing Indication % IBW: Yes - 200% Serum Creatinine - Last 168 Hours 03/30/21 18:14 Creatinine 0.92 Estimated CrCl and GFR - Last 168 Hours 03/30/21 18:14 Estim Creat Clear Calc 120.7 Estimated GFR > 60 Vancomycin Loading Dose: N/A Current Vancomycin Dosing Regimen: 1000 mg Q12H Date and Time for next Vancomycin Level to be drawn: 04/01 @ 1100 Pharmacist Comments on Vancomycin Plan: Vancomycin 1000 mg given in the ED 03/31 @ 0031. Will continue with vancomycin 1000 mg Q12H with next dose 03/31 @ 1300. Expected AUC 446 with a trough of 12.3. Trough to be drawn 2 hours before 4th dose on 04/01 @ 1100 Pharmacy to monitor renal function daily. Helena Strauss PharmD Vancomycin dosing will take advantage of [employer] as a clinical decision support tool that uses Bayesian modeling to calculate individual patient's pharmacokinetic parameters and forecast the patient's drug concentration time course with the target goal AUC 24 range of 400 - 600 mg/L/hr.
[2021-03-31 07:16] LABS: Anion Gap 12 (12-20); Blood Urea Nitrogen 12 mg/dL (9-16); Calcium 8.1 mg/dL (8.4-10.2); Carbon Dioxide 24 mmol/L (22-29); Chloride 109 mmol/L (96-108); Creatinine Clr Calc Pharmacy 140.6; Estimated Glomerular Filt Rate > 60; Glucose Random 84 mg/dL (60-115); Potassium 3.8 mmol/L (3.3-5.1); Sodium 141 mmol/L (135-145)
--- NOTE | 2021-03-31 07:24 | PC.NURSE ---
ortho and pharmacy at bedside this am for med rec and general consult.
--- NOTE | 2021-03-31 07:35 | PHA.MEDREC ---
Pharmacy Consult ? Medication Reconciliation Pharmacy has completed the medication reconciliation. Patient has not filled many of his medication since but reports still taking them; amlodipine, lisinopril, depakote, and fluoxetine. Patient confirmed he is not taking Keppra for seizures, and only take Depakote. Helena Strauss, ValdemarD
--- NOTE | 2021-03-31 07:45 | P.EN_ITS ---
Event Note Date of Service: 03/31/21 Event Note: Patient was seen and evaluated by orthopedics. I spoke with Dr. Sushma aleman as well as general surgery. General surgery will evaluate the patient for possible surgical intervention.
[2021-03-31 07:51] LABS: Estimated Average Glucose 114 mg/dL; Hemoglobin A1c % 5.6 %
--- NOTE | 2021-03-31 08:01 | P.CDIC_ITS ---
CDI Concurrent Query Documentation Clarification: PHYSICIAN'S DOCUMENTATION REQUEST Date of Query: 03/31/21 0801 Patient Name: Miles Pineda Admit Date: 03/30/21 Dear Doctor, A review of the medical record indicates additional documentation may be needed. Please review below and update the documentation accordingly. Clinical Indicators: Height: [] 5'7 Weight: [] 136.078 kg BMI: [] 47.0 Other Clinical Notes Supporting Significance of the BMI: Risk Factors/Clinical Indicators/Treatments If possible, please provide an associated diagnosis related to the abnormal BMI, such as: For a BMI >= 40: * Overweight * Obesity * Due to excess calories * Drug induced * Due to other cause * Severe or Morbid Obesity Or: * BMI is not significant * Other (please specify) * Unable to determine Use of terms such as suspected, likely, concern for, or probable (associated with a specific diagnosis that is being evaluated, monitored, or treated as if it exists) are acceptable and can be coded in the inpatient setting, when documented at the time of discharge. Thank you, Pavithra Rowe RN Extension: [phone] Please use your independent medical judgment in providing your response. THIS QUERY IS PART OF THE PERMANENT MEDICAL RECORD Provider Response: Other (see my progress note) Other Diagnosis: .
--- NOTE | 2021-03-31 09:39 | MHC.CM.PN ---
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
[2021-03-31] MEDS: Enoxaparin Sodium 40 MG/0.4 ML SYRINGE SUBCUT (09:54)
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
--- NOTE | 2021-03-31 11:16 | P.PNIM_ITS ---
Subjective Subjective Date of Service: 03/31/21 Interval History: seen and examined this AM he reports pain in the foot, he denies fevers Review of Systems negative except HPI Physical Exam Vital Signs: Vital Signs: Last Vital Signs Temp 97.9 F 03/31/21 08:00 Pulse 55 03/31/21 08:00 Resp 18 03/31/21 08:00 BP 180/72 H 03/31/21 08:00 Pulse Ox 99 03/31/21 08:00 Body Mass Index 47.0 Const: Other: General - no acute distress, appears comfortable Cardiovascular - regular rate and rhythm, S1-S2 Lungs - normal respiratory effort, clear to auscultation bilaterally, no wheezing Abdomen - soft, non-tender, no rebound or guarding Extremities - no edema; bilaterally Neuro - awake and alert, no focal deficits Objective Data Active Medications Acetaminophen (Acetaminophen 325 Mg Tablet) 650 mg PO Q6H PRN PRN Reason: Pain, Mild (Pain Scale 1-3) Last Admin: 03/31/21 03:45 Dose: 650 mg Documented by: EMILY Amlodipine Besylate (Amlodipine Besylate 10 Mg Tablet) 10 mg PO DAILY [facility]; Protocol Ascorbic Acid (Ascorbic Acid 500 Mg Tablet) 500 mg PO DAILY [facility] Divalproex Sodium (Divalproex Sodium 500 Mg Tablet.Dr) 500 mg PO BID [facility] Enoxaparin Sodium (Enoxaparin Sodium 40 Mg/0.4 Ml Syringe) 40 mg SUBCUT Q24H [facility] Last Admin: 03/31/21 09:54 Dose: 40 mg Documented by: KARISHMA Fluoxetine HCl (Fluoxetine Hcl 20 Mg Capsule) 20 mg PO DAILY [facility] Gabapentin (Gabapentin 100 Mg Capsule) 100 mg PO TID [facility] Vancomycin HCl 1,000 mg/ (Sodium Chloride) 270 mls @ 270 mls/hr IV Q12H [facility] Lisinopril (Lisinopril 40 Mg Tablet) 40 mg PO DAILY [facility]; Protocol Metoprolol Succinate (Metoprolol Succinate Er 100 Mg Tab.Er.24h) 200 mg PO DAILY [facility]; Protocol Non-Formulary Medication (Simvastatin) 1 tab PO DAILY [facility] Ondansetron HCl (Ondansetron Hcl 4 Mg/2 Ml Vial) 4 mg IVPUSH Q8H PRN PRN Reason: Nausea and Vomiting Oxycodone HCl (Oxycodone Hcl Immed Release 5 Mg Tablet) 5 mg PO Q6H PRN PRN Reason: Pain, Severe (Pain Scale 7-10) Last Admin: 03/31/21 09:54 Dose: 5 mg Documented by: KARISHMA Oxycodone HCl (Oxycodone Hcl Er 10 Mg Tab.Er.12h) 30 mg PO BID [facility] Pharmacy Consult (Consult Rx Perform Med Rec) 1 each MISCELLANE ONCE PRN PRN Reason: Consult order Pharmacy Consult (Consult Rx Vancomycin Dosing) 1 each MISCELLANE DAILY PRN PRN Reason: Consult order Sodium Chloride (0.9 % Sodium Chloride Flush 3 Ml Syringe) 3 ml IVFLUSH QSHIFT [facility] Last Admin: 03/31/21 07:23 Dose: Not Given Documented by: STEPHANIE Non-Admin Reason: Med Not Available Labs CBC & Chem 7: 03/31/21 06:54 03/31/21 06:54 Labs: Laboratory Results - last 24 hr 03/30/21 03/30/21 03/30/21 18:14 18:14 18:14 MCV 86.3 MCH 27.9 MCHC 32.4 RDW 15.2 Plt Count 373 MPV 9.6 Immature Gran % (Auto) 0.3 Neut % (Auto) 60.7 Lymph % (Auto) 28.9 [place] % (Auto) 8.2 Eos % (Auto) 1.3 Baso % (Auto) 0.6 Lymph # (Auto) 2.1 [place] # (Auto) 0.6 Eos # (Auto) 0.1 Baso # (Auto) 0.0 Abs Immat Gran (auto) 0.02 Absolute Neuts (auto) 4.4 Absolute Nucleated RBC 0.000 Nucleated RBC % (auto) 0.0 ESR PT 11.2 INR 1.0 APTT 31.2 Anion Gap 11 L Estim Creat Clear Calc 120.7 Estimated GFR > 60 Random Glucose 116 H D Estimat Average Glucose Hemoglobin A1c % Lactic Acid Calcium 8.6 Total Bilirubin 0.2 Direct Bilirubin < 0.2 AST 50 H D ALT 60 H Alkaline Phosphatase 132 H D C-Reactive Protein 3.86 H Total Protein 7.0 Albumin 3.6 COVID-19 ([facility]) COVID-19 Clin Com 03/30/21 03/30/21 03/30/21 18:14 18:14 22:40 MCV MCH MCHC RDW Plt Count MPV Immature Gran % (Auto) Neut % (Auto) Lymph % (Auto) [place] % (Auto) Eos % (Auto) Baso % (Auto) Lymph # (Auto) [place] # (Auto) Eos # (Auto) Baso # (Auto) Abs Immat Gran (auto) Absolute Neuts (auto) Absolute Nucleated RBC Nucleated RBC % (auto) ESR 56 H PT INR APTT Anion Gap Estim Creat Clear Calc Estimated GFR Random Glucose Estimat Average Glucose Hemoglobin A1c % Lactic Acid 1.2 Calcium Total Bilirubin Direct Bilirubin AST ALT Alkaline Phosphatase C-Reactive Protein Total Protein Albumin COVID-19 ([facility]) Negative COVID-19 Clin Com See Note 03/31/21 03/31/21 03/31/21 06:54 06:54 06:54 MCV 86.5 MCH 28.1 MCHC 32.4 RDW 15.3 Plt Count 338 MPV 9.2 L Immature Gran % (Auto) 0.3 Neut % (Auto) 66.5 Lymph % (Auto) 20.2 [place] % (Auto) 11.1 H Eos % (Auto) 1.5 Baso % (Auto) 0.4 Lymph # (Auto) 1.5 [place] # (Auto) 0.8 Eos # (Auto) 0.1 Baso # (Auto) 0.0 Abs Immat Gran (auto) 0.02 Absolute Neuts (auto) 4.8 Absolute Nucleated RBC 0.000 Nucleated RBC % (auto) 0.0 ESR PT INR APTT Anion Gap 12 Estim Creat Clear Calc 140.6 Estimated GFR > 60 Random Glucose 84 Estimat Average Glucose 114 Hemoglobin A1c % 5.6 Lactic Acid Calcium 8.1 L Total Bilirubin Direct Bilirubin AST ALT Alkaline Phosphatase C-Reactive Protein Total Protein Albumin COVID-19 ([facility]) COVID-19 Clin Com Assessment and Plan (1) Cellulitis of left foot: Status: Acute Assessment and Plan: 55 yo M with a PMH of HTN, seizure disorder, [place] [facility] [place] He is admitted for further treatment. 1. Possible Cellulitis, LLE 1a. Hematoma vs Abscess secondary to initial trauma resulting in a small scratch on IV vancomyin, will continue for the time being CT showing possible abscess vs hematoma - sample sent to lab Gen Surg is on board 2. Uncontrolled HTN start home meds and uptitrate as needed 3. Seizure disorder depakote 4. Chronic pain continue his baseline long acting opiates PRN IV for break through Full Code DVT pptx, Lovenox Quality Stroke Does the patient have a stroke diagnosis?: No VTE Prior VTE?: No VTE Risk Level:: Medical - moderate - high VTE Device Contraindication: Treatment Not Indicated VTE Drug Contraindication: N/A - Med Ordered
[2021-03-31] MEDS: amLODIPine Besylate 10 MG TABLET PO (11:53)
[2021-03-31] MEDS: oxyCODONE HCl ER 10 MG TAB.ER.12H 30 MG PO ×2 (11:53→20:26)
[2021-03-31] MEDS: lisinopriL 40 MG TABLET PO (11:54)
[2021-03-31] MEDS: Metoprolol Succinate ER 100 MG TAB.ER.24H 200 MG PO (11:55)
[2021-03-31] MEDS: Divalproex Sodium 500 MG TABLET.DR PO ×2 (12:11→20:26)
[2021-03-31] MEDS: Gabapentin 100 MG CAPSULE PO ×2 (14:46→20:26)
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
[2021-04-01] VITALS (9 sets, daily range): BP systolic 122–141; BP diastolic 64–71; PULSE 54–87; RESP 16–18; TEMP 36.4–37.1; O2SAT 98–99
[2021-04-01] MEDS: vancomycin HCL 1,000 MG in 0.9 % Sodium Chloride 250 ML 270 MG IV (00:08)
[2021-04-01] MEDS: 0.9 % Sodium Chloride Flush 3 ML SYRINGE IVFLUSH ×4 (00:08→23:50)
[2021-04-01] MEDS: HYDROmorphone HCl 1 MG/ML SYRINGE IVPUSH ×5 (02:52→23:49)
[2021-04-01 07:32] LABS: Creatinine Clr Calc Pharmacy 154.2; Estimated Glomerular Filt Rate > 60
[2021-04-01] MEDS: Atorvastatin Calcium 10 MG TABLET PO (08:24)
[2021-04-01] MEDS: Gabapentin 100 MG CAPSULE PO ×3 (08:24→20:17)
[2021-04-01] MEDS: amLODIPine Besylate 10 MG TABLET PO (08:24)
[2021-04-01] MEDS: Divalproex Sodium 500 MG TABLET.DR PO ×2 (08:24→20:17)
[2021-04-01] MEDS: Ascorbic Acid 500 MG TABLET PO (08:24)
[2021-04-01] MEDS: FLUoxetine HCl 20 MG CAPSULE PO (08:24)
[2021-04-01] MEDS: Metoprolol Succinate ER 100 MG TAB.ER.24H 200 MG PO (08:25)
[2021-04-01] MEDS: lisinopriL 40 MG TABLET PO (08:26)
[2021-04-01] MEDS: oxyCODONE HCl ER 10 MG TAB.ER.12H 30 MG PO ×2 (08:26→20:15)
[2021-04-01] MEDS: Enoxaparin Sodium 40 MG/0.4 ML SYRINGE SUBCUT (08:29)
--- NOTE | 2021-04-01 09:54 | P.PNIM_ITS ---
Subjective Subjective Date of Service: 04/01/21 Interval History: seen and examined this AM reports his foot feels better still has pain denies fevers or chills Review of Systems negative except HPI Physical Exam Vital Signs: Vital Signs: Last Vital Signs Temp 97.6 F 04/01/21 07:29 Pulse 72 04/01/21 08:26 Resp 18 04/01/21 07:29 BP 141/69 H 04/01/21 08:26 Pulse Ox 98 04/01/21 07:29 Body Mass Index 47.0 Const: Other: General - no acute distress, appears comfortable Cardiovascular - regular rate and rhythm, S1-S2 Lungs - normal respiratory effort, clear to auscultation bilaterally, no wheezing Abdomen - soft, non-tender, no rebound or guarding Extremities - left foot swelling improved, open area not draining Neuro - awake and alert, no focal deficits Objective Data Active Medications Acetaminophen (Acetaminophen 325 Mg Tablet) 650 mg PO Q6H PRN PRN Reason: Pain, Mild (Pain Scale 1-3) Last Admin: 03/31/21 18:06 Dose: 650 mg Documented by: RUPALI Amlodipine Besylate (Amlodipine Besylate 10 Mg Tablet) 10 mg PO DAILY [facility]; Protocol Last Admin: 04/01/21 08:24 Dose: 10 mg Documented by: HETAL Ascorbic Acid (Ascorbic Acid 500 Mg Tablet) 500 mg PO DAILY [facility] Last Admin: 04/01/21 08:24 Dose: 500 mg Documented by: HETAL Atorvastatin Calcium (Atorvastatin Calcium 10 Mg Tablet) 10 mg PO DAILY [facility] Last Admin: 04/01/21 08:24 Dose: 10 mg Documented by: HETAL Divalproex Sodium (Divalproex Sodium 500 Mg Tablet.Dr) 500 mg PO BID [facility] Last Admin: 04/01/21 08:24 Dose: 500 mg Documented by: HETAL Enoxaparin Sodium (Enoxaparin Sodium 40 Mg/0.4 Ml Syringe) 40 mg SUBCUT Q24H [facility] Last Admin: 04/01/21 08:29 Dose: 40 mg Documented by: HETAL Fluoxetine HCl (Fluoxetine Hcl 20 Mg Capsule) 20 mg PO DAILY [facility] Last Admin: 04/01/21 08:24 Dose: 20 mg Documented by: HETAL Gabapentin (Gabapentin 100 Mg Capsule) 100 mg PO TID [facility] Last Admin: 11/18/21 08:24 Dose: 100 mg Documented by: HETAL Hydromorphone HCl (Hydromorphone Hcl 1 Mg/Ml Syringe) 1 mg IVPUSH Q4H PRN; Protocol PRN Reason: Pain, Severe (Pain Scale 7-10) Last Admin: 04/01/21 08:34 Dose: 1 mg Documented by: HETAL Vancomycin HCl 1,000 mg/ (Sodium Chloride) 270 mls @ 270 mls/hr IV Q12H [facility] Last Infusion: 04/01/21 01:24 Dose: 0 mls/hr Documented by: JANUARY Lisinopril (Lisinopril 40 Mg Tablet) 40 mg PO DAILY [facility]; Protocol Last Admin: 04/01/21 08:26 Dose: 40 mg Documented by: HETAL Metoprolol Succinate (Metoprolol Succinate Er 100 Mg Tab.Er.24h) 200 mg PO DAILY [facility]; Protocol Last Admin: 04/01/21 08:25 Dose: 200 mg Documented by: HETAL Ondansetron HCl (Ondansetron Hcl 4 Mg/2 Ml Vial) 4 mg IVPUSH Q8H PRN PRN Reason: Nausea and Vomiting Oxycodone HCl (Oxycodone Hcl Er 10 Mg Tab.Er.12h) 30 mg PO BID [facility] Last Admin: 04/01/21 08:26 Dose: 30 mg Documented by: HETAL Pharmacy Consult (Consult Rx Perform Med Rec) 1 each MISCELLANE ONCE PRN PRN Reason: Consult order Pharmacy Consult (Consult Rx Vancomycin Dosing) 1 each MISCELLANE DAILY PRN PRN Reason: Consult order Sodium Chloride (0.9 % Sodium Chloride Flush 3 Ml Syringe) 3 ml IVFLUSH QSHIFT [facility] Last Admin: 04/01/21 08:24 Dose: 3 ml Documented by: HETAL Labs CBC & Chem 7: 03/31/21 06:54 04/01/21 06:56 Labs: Laboratory Results - last 24 hr 04/01/21 06:56 Estim Creat Clear Calc 154.2 Estimated GFR > 60 Microbiology Microbiology Results: Microbiology 03/30/21 23:58 Gram Stain - Final Foot Left Routine Culture - Preliminary No growth to date. 03/30/21 20:06 Blood Culture - Preliminary Blood - Venous No growth after 24 hours. 03/30/21 18:14 Blood Culture - Preliminary Blood - Venous No growth after 24 hours. Assessment and Plan (1) Cellulitis of left foot: Status: Acute Assessment and Plan: 55 yo M with a PMH of HTN, seizure disorder, who presented [place] [facility] [place]- healing [place]. He is admitted for further treatment. 1. Possible Cellulitis, LLE 1a. Hematoma vs Abscess secondary to initial trauma resulting in a small scratch improving slowly cultures (blood and aspiration) negative thus far ID input appreciated Gen Surg on board -- to determine if I&D would be needed continue vancomcyin for now 2. Uncontrolled HTN Better control with home meds, continue the same 3. Seizure disorder depakote 4. Chronic pain continue his baseline long acting opiates PRN IV for break through Full Code DVT pptx, Lovenox Quality Stroke Does the patient have a stroke diagnosis?: No VTE Prior VTE?: No VTE Risk Level:: Medical - moderate - high VTE Device Contraindication: Treatment Not Indicated VTE Drug Contraindication: N/A - Med Ordered
--- NOTE | 2021-04-01 11:39 | PHA.PROG ---
Admission Date/Time: March 30, 2021 23:34 Indication: SSSTI Weight in k.078 kg Adjusted body weight in Kg: [place] body weight in Kg: Obesity Dosing Indication % IBW: Serum Creatinine - Last 168 Hours 03/30/21 03/31/21 04/01/21 18:14 06:54 06:56 Creatinine 0.92 0.79 0.72 Estimated CrCl and GFR - Last 168 Hours 03/30/21 03/31/21 04/01/21 18:14 06:54 06:56 Estim Creat Clear Calc 120.7 140.6 154.2 Estimated GFR > 60 > 60 > 60 Vancomycin Loading Dose: 1000 MG Current Vancomycin Dosing Regimen: 1000 MG Q12H Vancomycin Monitoring using AUC goal of 400 - 600 range with trough as surrogate marker: Date and Time for next Vancomycin Level to be drawn: 04/02 @ 2300 Vancomycin Trough 9.0 mcg/mL (10.0-20.0) L 04/01/21 11:01 Pharmacist Comments on Vancomycin Plan: TROUGH CAME BACK SUBTHERAPEUTIC AT 9.0, SO I WILL BE INCREASING THE DOSE TO 1500 MG Q12H, WHICH PRODICTS A AUC OF 535 AND A TROUGH OF 11.8. Vancomycin dosing will take advantage of [employer] as a clinical decision support tool that uses Bayesian modeling to calculate individual patient's pharmacokinetic parameters and forecast the patient's drug concentration time course with the target goal AUC 24 range of 400 - 600 mg/L/hr.
[2021-04-01] MEDS: vancomycin HCL 1,500 MG in 0.9 % Sodium Chloride 500 ML 333.33 MG IV (12:43)
--- NOTE | 2021-04-01 15:42 | P.PNGS_ITS ---
Subjective Subjective Date of Service: 04/01/21 Interval history: Reports pain with ambulation but feels the swelling is decreased; denies drainage from wound Physical Exam Vital Signs: Vital Signs: Last Vital Signs Temp 98.8 F 04/01/21 15:35 Pulse 58 04/01/21 15:35 Resp 16 04/01/21 15:35 BP 122/71 04/01/21 15:35 Pulse Ox 99 04/01/21 15:35 Body Mass Index 47.0 Const: General: well developed Nutritional Appearance: well nourished Orientation/consciousness: patient oriented x3 Limitations: no limitations and ambulation with cane Resp: Effort & Inspection: normal respiratory effort Neuro: General: patient oriented x3 Extrem: Other: Left foot dorsum with open wound which is dry without discharge. Erythema is now gone. There is tenderness in the dorsum but no fluctuance is palpable. No drainage with palpation of the wound Objective Data Active Medications Acetaminophen (Acetaminophen 325 Mg Tablet) 650 mg PO Q6H PRN PRN Reason: Pain, Mild (Pain Scale 1-3) Last Admin: 03/31/21 18:06 Dose: 650 mg Documented by: RUPALI Amlodipine Besylate (Amlodipine Besylate 10 Mg Tablet) 10 mg PO DAILY [facility]; Protocol Last Admin: 04/01/21 08:24 Dose: 10 mg Documented by: HETAL Ascorbic Acid (Ascorbic Acid 500 Mg Tablet) 500 mg PO DAILY [facility] Last Admin: 04/01/21 08:24 Dose: 500 mg Documented by: HETAL Atorvastatin Calcium (Atorvastatin Calcium 10 Mg Tablet) 10 mg PO DAILY [facility] Last Admin: 04/01/21 08:24 Dose: 10 mg Documented by: HETAL Divalproex Sodium (Divalproex Sodium 500 Mg Tablet.Dr) 500 mg PO BID [facility] Last Admin: 04/01/21 08:24 Dose: 500 mg Documented by: HETAL Enoxaparin Sodium (Enoxaparin Sodium 40 Mg/0.4 Ml Syringe) 40 mg SUBCUT Q24H [facility] Last Admin: 04/01/21 08:29 Dose: 40 mg Documented by: HETAL Fluoxetine HCl (Fluoxetine Hcl 20 Mg Capsule) 20 mg PO DAILY [facility] Last Admin: 04/01/21 08:24 Dose: 20 mg Documented by: HETAL Gabapentin (Gabapentin 100 Mg Capsule) 100 mg PO TID [facility] Last Admin: 04/01/21 08:24 Dose: 100 mg Documented by: HETAL Hydromorphone HCl (Hydromorphone Hcl 1 Mg/Ml Syringe) 1 mg IVPUSH Q4H PRN; Protocol PRN Reason: Pain, Severe (Pain Scale 7-10) Last Admin: 04/01/21 12:50 Dose: 1 mg Documented by: HETAL Vancomycin HCl 1,500 mg/ (Sodium Chloride) 500 mls @ 333.333 mls/hr IV Q12H [facility] Last Infusion: 04/01/21 14:15 Dose: 0 mls/hr Documented by: HETAL Lisinopril (Lisinopril 40 Mg Tablet) 40 mg PO DAILY [facility]; Protocol Last Admin: 04/01/21 08:26 Dose: 40 mg Documented by: HETAL Metoprolol Succinate (Metoprolol Succinate Er 100 Mg Tab.Er.24h) 200 mg PO DAILY [facility]; Protocol Last Admin: 04/01/21 08:25 Dose: 200 mg Documented by: HETAL Ondansetron HCl (Ondansetron Hcl 4 Mg/2 Ml Vial) 4 mg IVPUSH Q8H PRN PRN Reason: Nausea and Vomiting Oxycodone HCl (Oxycodone Hcl Er 10 Mg Tab.Er.12h) 30 mg PO BID [facility] Last Admin: 04/01/21 08:26 Dose: 30 mg Documented by: HETAL Pharmacy Consult (Consult Rx Perform Med Rec) 1 each MISCELLANE ONCE PRN PRN Reason: Consult order Pharmacy Consult (Consult Rx Vancomycin Dosing) 1 each MISCELLANE DAILY PRN PRN Reason: Consult order Sodium Chloride (0.9 % Sodium Chloride Flush 3 Ml Syringe) 3 ml IVFLUSH QSHIFT [facility] Last Admin: 04/01/21 08:24 Dose: 3 ml Documented by: HETAL Labs CBC & Chem 7: 03/31/21 06:54 04/01/21 06:56 Labs: Laboratory Results - last 24 hr 04/01/21 04/01/21 06:56 11:01 Estim Creat Clear Calc 154.2 Estimated GFR > 60 Vancomycin Trough 9.0 L Microbiology Microbiology Results: Microbiology 03/30/21 23:58 Gram Stain - Final Foot Left Routine Culture - Preliminary No growth to date. 03/30/21 20:06 Blood Culture - Preliminary Blood - Venous No growth after 24 hours. 03/30/21 18:14 Blood Culture - Preliminary Blood - Venous No growth after 24 hours. Procedures Date of Service Date of Service: 04/01/21 Progress Note: A&P Assessment and plan (1) Cellulitis of left foot: Status: Acute Assessment and Plan: Overall patient is improved with decreased erythema in the dorsum of the left foot. Wound cultures are negative from the aspiration. Recommend continued observation with antibiotics. Will re-evaluate in a.m.. Fall Risk Details Current Medications: Current Medications Acetaminophen (Acetaminophen 325 Mg Tablet) 650 mg PO Q6H PRN PRN Reason: Pain, Mild (Pain Scale 1-3) Last Admin: 03/31/21 18:06 Dose: 650 mg Documented by: Amlodipine Besylate (Amlodipine Besylate 10 Mg Tablet) 10 mg PO DAILY [facility]; Protocol Last Admin: 04/01/21 08:24 Dose: 10 mg Documented by: Ascorbic Acid (Ascorbic Acid 500 Mg Tablet) 500 mg PO DAILY [facility] Last Admin: 04/01/21 08:24 Dose: 500 mg Documented by: Atorvastatin Calcium (Atorvastatin Calcium 10 Mg Tablet) 10 mg PO DAILY [facility] Last Admin: 04/01/21 08:24 Dose: 10 mg Documented by: Divalproex Sodium (Divalproex Sodium 500 Mg Tablet.Dr) 500 mg PO BID [facility] Last Admin: 04/01/21 08:24 Dose: 500 mg Documented by: Enoxaparin Sodium (Enoxaparin Sodium 40 Mg/0.4 Ml Syringe) 40 mg SUBCUT Q24H [facility] Last Admin: 04/01/21 08:29 Dose: 40 mg Documented by: Fluoxetine HCl (Fluoxetine Hcl 20 Mg Capsule) 20 mg PO DAILY [facility] Last Admin: 04/01/21 08:24 Dose: 20 mg Documented by: Gabapentin (Gabapentin 100 Mg Capsule) 100 mg PO TID [facility] Last Admin: 04/01/21 08:24 Dose: 100 mg Documented by: Hydromorphone HCl (Hydromorphone Hcl 1 Mg/Ml Syringe) 1 mg IVPUSH Q4H PRN; Protocol PRN Reason: Pain, Severe (Pain Scale 7-10) Last Admin: 04/01/21 12:50 Dose: 1 mg Documented by: Vancomycin HCl 1,500 mg/ (Sodium Chloride) 500 mls @ 333.333 mls/hr IV Q12H [facility] Last Infusion: 04/01/21 14:15 Dose: Infused Documented by: Lisinopril (Lisinopril 40 Mg Tablet) 40 mg PO DAILY [facility]; Protocol Last Admin: 04/01/21 08:26 Dose: 40 mg Documented by: Metoprolol Succinate (Metoprolol Succinate Er 100 Mg Tab.Er.24h) 200 mg PO DAILY [facility]; Protocol Last Admin: 04/01/21 08:25 Dose: 200 mg Documented by: Ondansetron HCl (Ondansetron Hcl 4 Mg/2 Ml Vial) 4 mg IVPUSH Q8H PRN PRN Reason: Nausea and Vomiting Oxycodone HCl (Oxycodone Hcl Er 10 Mg Tab.Er.12h) 30 mg PO BID [facility] Last Admin: 04/01/21 08:26 Dose: 30 mg Documented by: Pharmacy Consult (Consult Rx Perform Med Rec) 1 each MISCELLANE ONCE PRN PRN Reason: Consult order Pharmacy Consult (Consult Rx Vancomycin Dosing) 1 each MISCELLANE DAILY PRN PRN Reason: Consult order Sodium Chloride (0.9 % Sodium Chloride Flush 3 Ml Syringe) 3 ml IVFLUSH QSHIFT [facility] Last Admin: 04/01/21 08:24 Dose: 3 ml Documented by: Time Spent With Patient Time: Total time spent is greater than 50% in coordination of care (as documented) at patient's floor/unit and/or counseling patient: Time with patient: 15 - 24 minutes Quality Stroke Does the patient have a stroke diagnosis?: No VTE Prior VTE?: No VTE Risk Level:: Medical - moderate - high VTE Device Contraindication: Treatment Not Indicated VTE Drug Contraindication: N/A - Med Ordered
[2021-04-02] VITALS (7 sets, daily range): BP systolic 124–155; BP diastolic 61–71; PULSE 59–65; RESP 16–18; TEMP 36.2–37.1; O2SAT 97–100
[2021-04-02] MEDS: vancomycin HCL 1,500 MG in 0.9 % Sodium Chloride 500 ML 333.33 MG IV (00:01)
[2021-04-02] MEDS: HYDROmorphone HCl 1 MG/ML SYRINGE IVPUSH ×5 (03:56→20:23)
[2021-04-02 07:24] LABS: Creatinine Clr Calc Pharmacy 148.1; Estimated Glomerular Filt Rate > 60
[2021-04-02] MEDS: 0.9 % Sodium Chloride Flush 3 ML SYRINGE IVFLUSH ×2 (08:01→20:23)
[2021-04-02] MEDS: Atorvastatin Calcium 10 MG TABLET PO (08:05)
[2021-04-02] MEDS: Divalproex Sodium 500 MG TABLET.DR PO ×2 (08:05→20:23)
[2021-04-02] MEDS: lisinopriL 40 MG TABLET PO (08:05)
[2021-04-02] MEDS: amLODIPine Besylate 10 MG TABLET PO (08:05)
[2021-04-02] MEDS: oxyCODONE HCl ER 10 MG TAB.ER.12H 30 MG PO ×2 (08:05→20:22)
[2021-04-02] MEDS: FLUoxetine HCl 20 MG CAPSULE PO (08:05)
[2021-04-02] MEDS: Ascorbic Acid 500 MG TABLET PO (08:05)
[2021-04-02] MEDS: Gabapentin 100 MG CAPSULE PO ×2 (08:05→20:23)
[2021-04-02] MEDS: Metoprolol Succinate ER 100 MG TAB.ER.24H 200 MG PO (08:05)
--- NOTE | 2021-04-02 09:28 | HO.PM.IMPN ---
Subjective Subjective Date of Service: 04/02/21 Interval History: seen and examined this AM continues to improved but still has significant pain denies fevers or chills Review of Systems negative except for HPI Physical Exam Vital Signs: Vital Signs: Last Vital Signs Temp 97.9 F 04/02/21 07:23 Pulse 65 04/02/21 07:23 Resp 18 04/02/21 07:23 BP 145/71 H 04/02/21 07:23 Pulse Ox 98 04/02/21 07:23 Body Mass Index 47.0 Const: Other: General - no acute distress, appears comfortable Cardiovascular - regular rate and rhythm, S1-S2 Lungs - normal respiratory effort, clear to auscultation bilaterally, no wheezing Abdomen - soft, non-tender, no rebound or guarding Extremities - left foot swelling improved, open area not draining Neuro - awake and alert, no focal deficits Objective Data Active Medications Acetaminophen (Acetaminophen 325 Mg Tablet) 650 mg PO Q6H PRN PRN Reason: Pain, Mild (Pain Scale 1-3) Last Admin: 03/31/21 18:06 Dose: 650 mg Documented by: RUPALI Amlodipine Besylate (Amlodipine Besylate 10 Mg Tablet) 10 mg PO DAILY [facility]; Protocol Last Admin: 04/02/21 08:05 Dose: 10 mg Documented by: FORREST Ascorbic Acid (Ascorbic Acid 500 Mg Tablet) 500 mg PO DAILY [facility] Last Admin: 04/02/21 08:05 Dose: 500 mg Documented by: FORREST Atorvastatin Calcium (Atorvastatin Calcium 10 Mg Tablet) 10 mg PO DAILY [facility] Last Admin: 04/02/21 08:05 Dose: 10 mg Documented by: FORREST Divalproex Sodium (Divalproex Sodium 500 Mg Tablet.) 500 mg PO BID [facility] Last Admin: 04/02/21 08:05 Dose: 500 mg Documented by: FORREST Enoxaparin Sodium (Enoxaparin Sodium 40 Mg/0.4 Ml Syringe) 40 mg SUBCUT Q24H [facility] Last Admin: 04/01/21 08:29 Dose: 40 mg Documented by: PODZIEK Fluoxetine HCl (Fluoxetine Hcl 20 Mg Capsule) 20 mg PO DAILY [facility] Last Admin: 04/02/21 08:05 Dose: 20 mg Documented by: FORREST Gabapentin (Gabapentin 100 Mg Capsule) 100 mg PO TID [facility] Last Admin: 04/02/21 08:05 Dose: 100 mg Documented by: FORREST Hydromorphone HCl (Hydromorphone Hcl 1 Mg/Ml Syringe) 1 mg IVPUSH Q4H PRN; Protocol PRN Reason: Pain, Severe (Pain Scale 7-10) Last Admin: 04/02/21 08:01 Dose: 1 mg Documented by: FORREST Vancomycin HCl 1,500 mg/ (Sodium Chloride) 500 mls @ 333.333 mls/hr IV Q12H [facility] Last Infusion: 04/02/21 01:40 Dose: 0 mls/hr Documented by: CHAO Lisinopril (Lisinopril 40 Mg Tablet) 40 mg PO DAILY [facility]; Protocol Last Admin: 04/02/21 08:05 Dose: 40 mg Documented by: FORREST Metoprolol Succinate (Metoprolol Succinate Er 100 Mg Tab.Er.24h) 200 mg PO DAILY [facility]; Protocol Last Admin: 04/02/21 08:05 Dose: 200 mg Documented by: FORREST Ondansetron HCl (Ondansetron Hcl 4 Mg/2 Ml Vial) 4 mg IVPUSH Q8H PRN PRN Reason: Nausea and Vomiting Oxycodone HCl (Oxycodone Hcl Er 10 Mg Tab.Er.12h) 30 mg PO BID [facility] Last Admin: 04/02/21 08:05 Dose: 30 mg Documented by: FORREST Pharmacy Consult (Consult Rx Perform Med Rec) 1 each MISCELLANE ONCE PRN PRN Reason: Consult order Pharmacy Consult (Consult Rx Vancomycin Dosing) 1 each MISCELLANE DAILY PRN PRN Reason: Consult order Sodium Chloride (0.9 % Sodium Chloride Flush 3 Ml Syringe) 3 ml IVFLUSH QSHIFT [facility] Last Admin: 04/02/21 08:01 Dose: 3 ml Documented by: FORREST Labs CBC & Chem 7: 03/31/21 06:54 04/02/21 06:04 Labs: Laboratory Results - last 24 hr 04/01/21 04/02/21 11:01 06:04 Estim Creat Clear Calc 148.1 Estimated GFR > 60 Vancomycin Trough 9.0 L Microbiology Microbiology Results: Microbiology 03/30/21 23:58 Gram Stain - Final Foot Left Routine Culture - Final No growth after 2 days 03/30/21 20:06 Blood Culture - Preliminary Blood - Venous No growth after 48 hours. 03/30/21 18:14 Blood Culture - Preliminary Blood - Venous No growth after 48 hours. Assessment and Plan (1) Cellulitis of left foot: Status: Acute Assessment and Plan: 55 yo M with a PMH of HTN, seizure disorder, who presented to [facility] for non-healing wound. He is admitted for further treatment. 1. Cellulitis LLE 1a. Suspected hematoma -- cultures negative to date secondary to initial trauma resulting in a small scratch improving slowly - continue IV vancomcyin day #3 today -- possible transition to doxy by tomorrow ID input appreciated Gen Surg input appreciated -- does not need surgical intervention at this time, f/u with them in the clinic upon d/c 2. HTN continue baseline meds 3. Seizure disorder depakote 4. Chronic pain continue his baseline long acting opiates taper IV dialudid Full Code DVT pptx, Lovenox Quality Stroke Does the patient have a stroke diagnosis?: No VTE Prior VTE?: No VTE Risk Level:: Medical - moderate - high VTE Device Contraindication: Treatment Not Indicated VTE Drug Contraindication: N/A - Med Ordered
[2021-04-02] MEDS: Enoxaparin Sodium 40 MG/0.4 ML SYRINGE SUBCUT (11:07)
--- NOTE | 2021-04-02 11:56 | MHC.CM.PN ---
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
[2021-04-02] MEDS: vancomycin HCL 1,500 MG in 0.9 % Sodium Chloride 500 ML 333 MG IV (12:12)
[2021-04-02 23:50] LABS: Vancomycin Trough 15.9 mcg/mL (10.0-20.0)
[2021-04-03] VITALS: BP 133/60; PULSE 56; RESP 18; TEMP 36.7; O2SAT 97
[2021-04-03] MEDS: HYDROmorphone HCl 1 MG/ML SYRINGE IVPUSH ×2 (00:33→04:06)
[2021-04-03] MEDS: vancomycin HCL 1,500 MG in 0.9 % Sodium Chloride 500 ML 333.33 MG IV (00:42)
[2021-04-03 03:22] VITALS: BP 166/74; PULSE 67; RESP 18; TEMP 36.7; O2SAT 99
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
[2021-04-03 08:00] VITALS: BP 157/80; PULSE 64; RESP 18; TEMP 36.8; O2SAT 98
[2021-04-03 08:08] LABS: Creatinine Clr Calc Pharmacy 168.3; Estimated Glomerular Filt Rate > 60
--- NOTE | 2021-04-03 08:51 | MHC.CM.PN ---
PT TO DC HOME TODAY WITH NO SERVICES. PT TO SELF ARRANGE TRANSPORT
--- NOTE | 2021-04-03 09:17 | P.PNGS_ITS ---
Subjective Subjective Date of Service: 04/03/21 Interval history: Patient complains of continued left foot pain. Physical Exam Vital Signs: Vital Signs: Last Vital Signs Temp 98.1 F 04/03/21 03:22 Pulse 67 04/03/21 03:22 Resp 18 04/03/21 03:22 BP 166/74 H 04/03/21 03:22 Pulse Ox 99 04/03/21 03:22 Body Mass Index 47.0 Const: General: cooperative and healthy appearing Nutritional Appearance: well nourished Orientation/consciousness: patient oriented x3 Limitations: ambulation with cane Resp: Effort & Inspection: normal respiratory effort, not labored and no respiratory distress Skin: General skin exam: no rashes or lesions noted Neuro: General: patient oriented x3 Extrem: Other: left foot with no residual erythema; no fluctuance, tender on dorsum, decreased swelling, no warmth. No evidence of an abscess. Findings consistent with underlying hematoma/contusion. Objective Data Active Medications Acetaminophen (Acetaminophen 325 Mg Tablet) 650 mg PO Q6H PRN PRN Reason: Pain, Mild (Pain Scale 1-3) Last Admin: 03/31/21 18:06 Dose: 650 mg Documented by: RUPALI Amlodipine Besylate (Amlodipine Besylate 10 Mg Tablet) 10 mg PO DAILY [facility]; Protocol Last Admin: 04/02/21 08:05 Dose: 10 mg Documented by: FORREST Ascorbic Acid (Ascorbic Acid 500 Mg Tablet) 500 mg PO DAILY [facility] Last Admin: 04/02/21 08:05 Dose: 500 mg Documented by: FORREST Atorvastatin Calcium (Atorvastatin Calcium 10 Mg Tablet) 10 mg PO DAILY [facility] Last Admin: 04/02/21 08:05 Dose: 10 mg Documented by: FORREST Divalproex Sodium (Divalproex Sodium 500 Mg Tablet.) 500 mg PO BID [facility] Last Admin: 04/02/21 20:23 Dose: 500 mg Documented by: NEETU Enoxaparin Sodium (Enoxaparin Sodium 40 Mg/0.4 Ml Syringe) 40 mg SUBCUT Q24H SC H Last Admin: 04/02/21 11:07 Dose: 40 mg Documented by: FORREST Fluoxetine HCl (Fluoxetine Hcl 20 Mg Capsule) 20 mg PO DAILY [facility] Last Admin: 04/02/21 08:05 Dose: 20 mg Documented by: FORREST Gabapentin (Gabapentin 100 Mg Capsule) 100 mg PO TID [facility] Last Admin: 04/02/21 20:23 Dose: 100 mg Documented by: NEETU Hydromorphone HCl (Hydromorphone Hcl 1 Mg/Ml Syringe) 1 mg IVPUSH Q4H PRN; Protocol PRN Reason: Pain, Severe (Pain Scale 7-10) Last Admin: 04/03/21 04:06 Dose: 1 mg Documented by: NEETU Vancomycin HCl 1,500 mg/ (Sodium Chloride) 500 mls @ 333.333 mls/hr IV Q12H [facility] Last Infusion: 04/03/21 02:23 Dose: 0 mls/hr Documented by: NEETU Lisinopril (Lisinopril 40 Mg Tablet) 40 mg PO DAILY [facility]; Protocol Last Admin: 04/02/21 08:05 Dose: 40 mg Documented by: FORREST Metoprolol Succinate (Metoprolol Succinate Er 100 Mg Tab.Er.24h) 200 mg PO DAILY [facility]; Protocol Last Admin: 04/02/21 08:05 Dose: 200 mg Documented by: FORREST Ondansetron HCl (Ondansetron Hcl 4 Mg/2 Ml Vial) 4 mg IVPUSH Q8H PRN PRN Reason: Nausea and Vomiting Oxycodone HCl (Oxycodone Hcl Er 10 Mg Tab.Er.12h) 30 mg PO BID [facility] Last Admin: 04/02/21 20:22 Dose: 30 mg Documented by: NEETU Pharmacy Consult (Consult Rx Perform Med Rec) 1 each MISCELLANE ONCE PRN PRN Reason: Consult order Pharmacy Consult (Consult Rx Vancomycin Dosing) 1 each MISCELLANE DAILY PRN PRN Reason: Consult order Sodium Chloride (0.9 % Sodium Chloride Flush 3 Ml Syringe) 3 ml IVFLUSH QSHIFT [facility] Last Admin: 04/02/21 20:23 Dose: 3 ml Documented by: NEETU Labs CBC & Chem 7: 03/31/21 06:54 04/03/21 06:45 Labs: Laboratory Results - last 24 hr 04/02/21 04/03/21 23:20 06:45 Estim Creat Clear Calc 168.3 Estimated GFR > 60 Vancomycin Trough 15.9 Microbiology Microbiology Results: Microbiology 03/30/21 23:58 Gram Stain - Final Foot Left Routine Culture - Final No growth after 2 days Procedures Date of Service Date of Service: 04/03/21 Progress Note: A&P Assessment and plan (1) Swelling of left foot: Status: Acute (2) Cellulitis of left foot: Status: Acute Assessment and Plan: Cellulitis of left foot is now improved. There is no evidence of abscess on my examination. 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 Suggest nonweightbearing with crutches. Continue antibiotics in the outpatient setting follow-up in the office in approximately 1 week. Fall Risk Details Current Medications: Current Medications Acetaminophen (Acetaminophen 325 Mg Tablet) 650 mg PO Q6H PRN PRN Reason: Pain, Mild (Pain Scale 1-3) Last Admin: 03/31/21 18:06 Dose: 650 mg Documented by: Amlodipine Besylate (Amlodipine Besylate 10 Mg Tablet) 10 mg PO DAILY [facility]; Protocol Last Admin: 04/02/21 08:05 Dose: 10 mg Documented by: Ascorbic Acid (Ascorbic Acid 500 Mg Tablet) 500 mg PO DAILY [facility] Last Admin: 04/02/21 08:05 Dose: 500 mg Documented by: Atorvastatin Calcium (Atorvastatin Calcium 10 Mg Tablet) 10 mg PO DAILY [facility] Last Admin: 04/02/21 08:05 Dose: 10 mg Documented by: Divalproex Sodium (Divalproex Sodium 500 Mg Tablet.Dr) 500 mg PO BID [facility] Last Admin: 04/02/21 20:23 Dose: 500 mg Documented by: Enoxaparin Sodium (Enoxaparin Sodium 40 Mg/0.4 Ml Syringe) 40 mg SUBCUT Q24H [facility] Last Admin: 04/02/21 11:07 Dose: 40 mg Documented by: Fluoxetine HCl (Fluoxetine Hcl 20 Mg Capsule) 20 mg PO DAILY [facility] Last Admin: 04/02/21 08:05 Dose: 20 mg Documented by: Gabapentin (Gabapentin 100 Mg Capsule) 100 mg PO TID [facility] Last Admin: 04/02/21 20:23 Dose: 100 mg Documented by: Hydromorphone HCl (Hydromorphone Hcl 1 Mg/Ml Syringe) 1 mg IVPUSH Q4H PRN; Protocol PRN Reason: Pain, Severe (Pain Scale 7-10) Last Admin: 04/03/21 04:06 Dose: 1 mg Documented by: Vancomycin HCl 1,500 mg/ (Sodium Chloride) 500 mls @ 333.333 mls/hr IV Q12H [facility] Last Infusion: 04/03/21 02:23 Dose: Infused Documented by: Lisinopril (Lisinopril 40 Mg Tablet) 40 mg PO DAILY [facility]; Protocol Last Admin: 04/02/21 08:05 Dose: 40 mg Documented by: Metoprolol Succinate (Metoprolol Succinate Er 100 Mg Tab.Er.24h) 200 mg PO DAILY [facility]; Protocol Last Admin: 04/02/21 08:05 Dose: 200 mg Documented by: Ondansetron HCl (Ondansetron Hcl 4 Mg/2 Ml Vial) 4 mg IVPUSH Q8H PRN PRN Reason: Nausea and Vomiting Oxycodone HCl (Oxycodone Hcl Er 10 Mg Tab.Er.12h) 30 mg PO BID [facility] Last Admin: 04/02/21 20:22 Dose: 30 mg Documented by: Pharmacy Consult (Consult Rx Perform Med Rec) 1 each MISCELLANE ONCE PRN PRN Reason: Consult order Pharmacy Consult (Consult Rx Vancomycin Dosing) 1 each MISCELLANE DAILY PRN PRN Reason: Consult order Sodium Chloride (0.9 % Sodium Chloride Flush 3 Ml Syringe) 3 ml IVFLUSH QSHIFT [facility] Last Admin: 04/02/21 20:23 Dose: 3 ml Documented by: Time Spent With Patient Time: Total time spent is greater than 50% in coordination of care (as documented) at patient's floor/unit and/or counseling patient: Time with patient: 15 - 24 minutes Quality Stroke Does the patient have a stroke diagnosis?: No VTE Prior VTE?: No VTE Risk Level:: Medical - moderate - high VTE Device Contraindication: Treatment Not Indicated VTE Drug Contraindication: N/A - Med Ordered
[2021-04-03] MEDS: Enoxaparin Sodium 40 MG/0.4 ML SYRINGE SUBCUT (09:32)
[2021-04-03 09:33] VITALS: BP 157/80
[2021-04-03] MEDS: FLUoxetine HCl 20 MG CAPSULE PO (09:33)
[2021-04-03] MEDS: Divalproex Sodium 500 MG TABLET.DR PO (09:33)
[2021-04-03] MEDS: oxyCODONE HCl ER 10 MG TAB.ER.12H 30 MG PO (09:33)
[2021-04-03] MEDS: Atorvastatin Calcium 10 MG TABLET PO (09:33)
[2021-04-03] MEDS: Ascorbic Acid 500 MG TABLET PO (09:33)
[2021-04-03] MEDS: Gabapentin 100 MG CAPSULE PO (09:33)
[2021-04-03] MEDS: amLODIPine Besylate 10 MG TABLET PO (09:33)
[2021-04-03 09:34] VITALS: BP 157/80
[2021-04-03] MEDS: lisinopriL 40 MG TABLET PO (09:34)
[2021-04-03] MEDS: Metoprolol Succinate ER 100 MG TAB.ER.24H 200 MG PO (09:34)
[2021-04-03] MEDS: 0.9 % Sodium Chloride Flush 3 ML SYRINGE IVFLUSH (09:34)
--- NOTE | 2021-04-03 11:20 | MHC.CM.PN ---
PT CLEARED TO DC HOME TODAY WITH [facility]UMPTION OF [facility] [employer] [facility] [employer]
== END 2021-04-03 10:40 | disposition home or self-care (01) | DRG 603 ==
LOC: HO.ED 23:47 → HO.EDOVER 03-31 00:20 → HO.IMC 03-31 07:30
PROVIDERS: Family Medicine; Admitting Provider Internal Medicine; Emergency Provider Emergency Medicine; PCP Family Medicine; Visit Provider Internal Medicine
DX: L02.612 Cutaneous abscess of left foot (principal); L03.116 Cellulitis of left lower limb; F41.9 Anxiety disorder, unspecified; E78.5 Hyperlipidemia, unspecified; G89.29 Other chronic pain; I10 Essential (primary) hypertension; G40.909 Epilepsy, unspecified, not intractable, without status epilepticus; Z20.822 Contact with and (suspected) exposure to COVID-19; Z88.0 Allergy status to penicillin; Z88.5 Allergy status to narcotic agent; Z79.899 Other long term (current) drug therapy
CPT/HCPCS: 36415; 73610; 73630; 73700; 80048; 80076; 80202; 82565; 83036; 83605; 85025; 85610; 85652; 85730; 86140; 87040; 87071; 87205; 87635; 96365; 96375; 96376; 99285; J1170; J1650; J3370

== ENCOUNTER 2021-08-30 23:58 | Emergency (ER) | payer MEDICARE, MEDICAID, SELFPAY ==
--- NOTE | 2021-08-31 | ECG_ITS ---
Test Reason : CP Blood Pressure : / mmHG Vent. Rate : 062 BPM Atrial Rate : 062 BPM P-R Int : 158 ms QRS Dur : 086 ms QT Int : 428 ms P-R-T Axes : 020 -04 007 degrees QTc Int : 434 ms Normal sinus rhythm Normal ECG When compared with ECG of 19-MAR-2019 15:12, No significant change was found Referred By: Generic ED Physician Electronically Signed By:NAINA AYALA MD
[2021-08-31 00:10] VITALS: BP 132/77; PULSE 69; RESP 18; TEMP 37; O2SAT 96; BMI 45.4
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
[2021-08-31 01:18] LABS: COVID-19 Test Negative (Negative); IDNOW Serial# 55D5AD1C; Influenza A Negative (Negative); Influenza B2 Negative (Negative)
[2021-08-31 01:59] LABS: MANUAL DIFF FLAG NO
[2021-08-31 02:00] LABS: Basophils Percent Auto 0.2 % (0-2); Eosinophils Absolute Auto 0.1 X10*3/uL (0.0-0.4); Eosinophils Percent Auto 1.1 % (0-4); Hematocrit 36.3 % (42.0-52.0); Hemoglobin 11.6 g/dl (14.0-18.0); Imm Gran Abs Auto 0.01 X10*3/uL (0.00-0.03); Imm Gran Pct Auto 0.1 % (0.0-0.4); Lymphocytes Absolute Auto 2.7 X10*3/uL (1.2-4.9); Lymphocytes Percent Auto 32.4 % (20-40); Mean Corpuscular Hemoglobin 27.8 pg (27.0-33.0); Mean Corpuscular Volume 87.1 fL (80.0-98.0); Monocytes Absolute Auto 0.6 X10*3/uL (0.1-1.2); Monocytes Percent Auto 7.1 % (2-11); Neutrophils Absolute Auto 4.8 x10*3/uL (2.0-8.3); Neutrophils Percent Auto 59.1 % (45-73); Platelet Count 414 X10*3/uL (160-400); Red Blood Count 4.17 X10*6/uL (4.60-5.80); Red Cell Distribution Width 17.3 % (11.0-16.0); White Blood Count 8.2 X10*3/uL (4.8-10.8)
[2021-08-31 02:19] LABS: Troponin-I High Sensitivity < 3.5 ng/L (<3.5-35.0)
[2021-08-31 02:22] LABS: Anion Gap 14 (12-20); Blood Urea Nitrogen 12 mg/dL (9-16); Calcium 8.9 mg/dL (8.4-10.2); Carbon Dioxide 25 mmol/L (22-29); Chloride 104 mmol/L (96-108); Creatinine Clr Calc Pharmacy 93.6; Estimated Glomerular Filt Rate > 60; Glucose Random 101 mg/dL (60-115); Potassium 4.2 mmol/L (3.3-5.1); Sodium 139 mmol/L (135-145)
[2021-08-31 02:30] LABS: INTERNATIONAL NORM RATIO 1.1 (0.9-1.1); Prothrombin Time 12.2 SEC (9.9-13.0)
[2021-08-31 02:32] LABS: D Dimer High Sensitivity 323 NG/ML
--- NOTE | 2021-08-31 03:28 | PC.NURSE ---
Due to the acuity of my assignment and the lack of adequate staffing on this shift I was unable to spend a significant amount of time with Miles. he presented for evaluation of chest pain, reproducible with deep inspiration, in the wake of a 1-2 week old covid diagnosis. on arrival he was alert, oriented x 3, speaking in full sentences and in no apparent distress. A short time ago when i re-entered his room to evaluate him he stated he needed to leave because he had a ride home from his daughter and he wished to not have her come out any later than this time. I encouraged him to remain in the ED, but he insisted that he can not. Leila RASHEED aware who placed AMA instructions in his DC papers. I reviewed the AMA form with the pt prior to arrival and he signed it willingly. he ambulated out of the ED indpeendently and with steady gait, in good spirits. he was encouraged to return for any concerns and he verbalized that he would do so if needed.
== END 2021-08-31 03:27 | disposition left against medical advice (07) ==
PROVIDERS: Internal Medicine; Emergency Provider Student in an Organized Health Care Education/Training Program
DX: U07.1 COVID-19 (principal); R07.89 Other chest pain; M54.50 Low back pain, unspecified; Z79.899 Other long term (current) drug therapy
CPT/HCPCS: 80048; 84484; 85025; 85379; 85610; 87502; 87635; 93005; 96361; 96374; 99283; 99284

== ENCOUNTER 2021-12-05 17:37 | Inpatient (IN) | payer MEDICARE, MEDICAID, SELFPAY ==
--- NOTE | ~2021-12-05 | CT_ITS ---
EXAMINATION: CT LUMBAR SPINE CLINICAL INFORMATION: Severe back pain COMPARISON: Lumbar spine radiographs 03/18/2021 TECHNIQUE: Axial images were obtained through the lumbar spine following the intravenous administration of 85 mL Omnipaque 350. Coronal and sagittal reformatted images were generated. This CT examination was performed using dose optimization techniques as appropriate, variously including the following: *Automated exposure control *Adjustment of mA and/or kV according to patient size (this includes techniques or standardized protocols for targeted exams where dose is matched to indication/reason for exam; i.e. extremities or head) *Use of iterative reconstruction technique DLP: 1097 mGy-cm FINDINGS: Transitional partially sacralized L5 vertebral body on the left side. Mild grade 1 anterolisthesis at L3-L4. No additional subluxation. No acute fracture or suspicious appearing osseous lesion. No endplate erosive/destructive changes. Status post prior posterior spinal fusion with intact rods and pedicle screw fixation at L3-L4. Solid ankylosis of the facet joints. No lucency surrounding the fixation screws. Moderate disc degenerative change at L2-L3 characterized by mild/moderate disc height loss, endplate sclerosis, mild endplate cystic change, endplate osteophytes, and vacuum disc phenomena. Additional moderate disc height loss at L3-L4. Intervertebral disc heights otherwise fairly well-maintained. Scattered small endplate osteophytes throughout the remainder the MR spine. Facet arthrosis at L2-L3, L4-L5 and L5-S1 bilaterally. Visualized paraspinal soft tissues remarkable for changes of prior cholecystectomy with surgical clips in the gallbladder fossa. Visualized kidneys are unremarkable. Normal caliber abdominal aorta with mild vascular calcifications. Prominently distended urinary bladder. Findings at specific levels: T12-L1: No gross disc herniation, central canal, neural foraminal stenosis. Mild bilateral facet arthrosis. L1-L2: Mild diffuse disc bulge suspected and mild facet arthrosis. Perhaps minimal central canal and mild bilateral neural foraminal narrowing. L2-L3: Diffuse disc bulge with at least moderate central canal stenosis. Advanced bilateral facet arthrosis. Moderate to severe bilateral neural foraminal stenosis. L3-L4: Status post posterior spinal fusion. Minimal grade 1 anterolisthesis. Assessment for canal stenosis is nondiagnostic at this level. Moderate suspected bilateral neural foraminal narrowing-limited assessment. L4-L5: Suspected mild diffuse disc bulge mild central canal stenosis. Bilateral facet arthrosis. Moderate to severe bilateral neural foraminal stenosis left worse than right. L5-S1: Transitional partially sacralized level. No appreciable disc herniation or central canal stenosis. Mild neural foraminal narrowing bilaterally and mild facet arthrosis. CT/CT lumbar spine w con IMPRESSION: 1. No fracture or CT evidence of advanced discitis osteomyelitis complex. 2. Status post L3-L4 posterior spinal fusion with intact fixation. No evidence of hardware loosening. 3. Moderate disc degenerative change at L2-L3 above the fused level. 4. Limited assessment of the spinal canal contents due to noncontrast CT technique. At least moderate central canal stenosis suspected at L2-L3. If clinical concern for spinal stenosis, would suggest a dedicated MRI the lumbar spine for more reliable assessment. 5. Bilateral neural foraminal foraminal stenosis, as above.
[2021-12-05 18:05] VITALS: BP 166/83; PULSE 81; RESP 20; TEMP 36.1; O2SAT 97; BMI 45.4
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
[2021-12-05 20:30] VITALS: RESP 16
[2021-12-05] MEDS: HYDROmorphone HCl 1 MG/ML SYRINGE IM (20:30)
[2021-12-05] MEDS: LORazepam 1 MG TABLET PO (20:32)
[2021-12-05 20:35] VITALS: BP 186/82; PULSE 63; RESP 16; TEMP 36.1; O2SAT 100
--- NOTE | 2021-12-05 21:55 | PC.NURSE ---
PT STATING PAIN NOT RELIEVED WITH ADMINISTERED RXS, RESISTANT TO DISCHARGE. PA AWARE.
[2021-12-05 23:00] LABS: MANUAL DIFF FLAG NO
[2021-12-05 23:03] LABS: Basophils Percent Auto 0.5 % (0-2); Eosinophils Absolute Auto 0.1 X10*3/uL (0.0-0.4); Eosinophils Percent Auto 0.9 % (0-4); Hematocrit 36.8 % (42.0-52.0); Hemoglobin 11.7 g/dl (14.0-18.0); Imm Gran Abs Auto 0.01 X10*3/uL (0.00-0.03); Imm Gran Pct Auto 0.2 % (0.0-0.4); Lymphocytes Absolute Auto 2.3 X10*3/uL (1.2-4.9); Lymphocytes Percent Auto 34.4 % (20-40); Mean Corpuscular HGB Conc 31.8 g/dl (31.0-36.0); Mean Corpuscular Hemoglobin 27.7 pg (27.0-33.0); Mean Corpuscular Volume 87.2 fL (80.0-98.0); Mean Platelet Volume 9.8 fL (9.4-12.4); Monocytes Absolute Auto 0.6 X10*3/uL (0.1-1.2); Monocytes Percent Auto 8.9 % (2-11); Neutrophils Absolute Auto 3.6 x10*3/uL (2.0-8.3); Neutrophils Percent Auto 55.1 % (45-73); Platelet Count 279 X10*3/uL (160-400); Red Blood Count 4.22 X10*6/uL (4.60-5.80); Red Cell Distribution Width 15.1 % (11.0-16.0); White Blood Count 6.6 X10*3/uL (4.8-10.8)
[2021-12-05] MEDS: Ketorolac Tromethamine 15 MG/ML VIAL 30 MG IVPUSH (23:04)
[2021-12-05] MEDS: HYDROmorphone HCl 1 MG/ML SYRINGE IVPUSH (23:04)
[2021-12-05] MEDS: 0.9 % Sodium Chloride 1,000 ML 999 ML IV (23:05)
[2021-12-05 23:12] LABS: Partial Thromboplastin Time 32.3 SEC (24.1-38.0)
[2021-12-05 23:15] LABS: Lactic Acid 1.1 mmol/L (0.5-2.0)
[2021-12-05 23:20] LABS: COVID-19 Test Negative (Negative)
[2021-12-05 23:25] LABS: Alanine Aminotransferase 20 U/L (0-40); Albumin Level 3.7 g/dL (3.5-5.0); Alkaline Phosphatase 99 U/L (39-117); Anion Gap 12 (12-20); Aspartate Amino Transferase 15 U/L (5-37); Bilirubin Total < 0.2 mg/dL (0.0-1.0); Blood Urea Nitrogen 7 mg/dL (9-16); C Reactive Protein 0.88 mg/dL (< or = 0.50); Calcium 8.9 mg/dL (8.4-10.2); Carbon Dioxide 25 mmol/L (22-29); Chloride 106 mmol/L (96-108); Creatinine Clr Calc Pharmacy 160.6; Estimated Glomerular Filt Rate > 60; Glucose Random 102 mg/dL (60-115); Lipase < 4 U/L (8-78); Sodium 139 mmol/L (135-145)
[2021-12-05 23:45] LABS: Erythrocyte Sedimentation Rate 29 MM/HR (0-15)
[2021-12-06] VITALS (12 sets, daily range): BP systolic 147–198; BP diastolic 60–106; PULSE 55–68; RESP 15–20; TEMP 36.7–36.9; O2SAT 95–100; BMI 47.3
[2021-12-06] MEDS: HYDROmorphone HCl 2 MG/ML VIAL IVPUSH ×6 (00:17→22:04)
--- NOTE | 2021-12-06 01:30 | PC.NURSE ---
Addendum entered by Raquel Davis 12/06/21 04:45: Multiple pain reassessments not completed by previous RN. Original Note: This RN assuming care of this patient @ 0130. Pt found sitting upright in bed in [facility], moved into ED RM 1. Pt reports no relief of pain despite multiple doses of Dilaudid. MD aware. Pt continues reporting 10/10 pain to lower back, radiating into legs. Per ER [facility]LIN, plan to consult with hospitalist for possible admission due to intractable pain. Pt medicated per JUL. Med Rec completed by this RN. Awaiting hospitalist.
[2021-12-06] MEDS: Cyclobenzaprine HCl 10 MG TABLET PO (01:46)
[2021-12-06] MEDS: HYDROmorphone HCl 1 MG/ML SYRINGE IVPUSH (01:46)
[2021-12-06] MEDS: Gabapentin 100 MG CAPSULE PO ×4 (02:56→21:23)
[2021-12-06] MEDS: Divalproex Sodium 500 MG TABLET.DR PO ×3 (02:56→21:23)
[2021-12-06] MEDS: Ketorolac Tromethamine 15 MG/ML VIAL IVPUSH (02:57)
[2021-12-06] MEDS: diazePAM 10 MG/2 ML CARTRIDGE 5 MG IVPUSH ×2 (02:57→09:51)
--- NOTE | 2021-12-06 03:30 | PC.NURSE ---
Hospitalist at bedside, plan to admit.
--- NOTE | 2021-12-06 06:46 | PC.NURSE ---
This RN discussing pain management plan with MD. RASHEED to order meds. Pt unable to provide UA @ this time; respiratory panel sent.
--- NOTE | 2021-12-06 08:19 | PHA.MEDREC ---
Pharmacy Consult ? Medication Reconciliation Pharmacy has completed the medication reconciliation. Patient states they are taking chlorthalidone. [facility], last filled for 30 day supply in 2020
[2021-12-06 08:37] LABS: Appearance Urine CLEAR; Color Urine YELLOW; Glucose Urine UA NEG (NEG); Leukocyte Esterase Urine NEG (NEG); Nitrite Urine NEG (NEG); PH 6.5 (5.0-8.0); Specific Gravity - Urine 1.025 (1.005-1.025); Urine Blood NEG (NEG); Urine Ketones 5 MG/DL (NEG); Urine Protein NEG (NEG-TRACE)
[2021-12-06] MEDS: Atorvastatin Calcium 10 MG TABLET PO (09:51)
[2021-12-06] MEDS: oxyCODONE HCl ER 10 MG TAB.ER.12H 30 MG PO ×2 (09:51→21:23)
[2021-12-06] MEDS: lisinopriL 40 MG TABLET PO (09:52)
[2021-12-06] MEDS: Metoprolol Succinate ER 100 MG TAB.ER.24H 200 MG PO (09:52)
[2021-12-06] MEDS: amLODIPine Besylate 10 MG TABLET PO (09:52)
[2021-12-06] MEDS: Ascorbic Acid 500 MG TABLET PO (09:53)
[2021-12-06] MEDS: FLUoxetine HCl 20 MG CAPSULE PO (09:53)
[2021-12-06] MEDS: Multivitamin TABLET 1 TAB PO (09:53)
[2021-12-06] MEDS: Omeprazole 40 MG CAPSULE.DR PO (09:54)
[2021-12-06 11:06] LABS: Adenovirus PCR Not Detected (Not Detect.); Bordetella parapertussis PCR Not Detected (Not Detect.); Bordetella pertussis PCR Not Detected (Not Detect.); Chlamydia pneumoniae PCR Not Detected (Not Detect.); Coronavirus 229E PCR Not Detected (Not Detect.); Coronavirus HKU1 PCR Not Detected (Not Detect.); Coronavirus NL63 PCR Not Detected (Not Detect.); Coronavirus OC43 PCR Not Detected (Not Detect.); Human metapneumovirus PCR Not Detected (Not Detect.); Influenza A PCR Not Detected (Not Detect.); Influenza B PCR Not Detected (Not Detect.); Mycoplasma pneumoniae PCR Not Detected (Not Detect.); Parainfluenza 1 PCR Not Detected (Not Detect.); Parainfluenza 2 PCR Not Detected (Not Detect.); Parainfluenza 3 PCR Not Detected (Not Detect.); Parainfluenza 4 PCR Not Detected (Not Detect.); RSV PCR Not Detected (Not Detect.); Rhino/Enterovirus PCR Not Detected (Not Detect.); SARS-CoV-2 PCR Not Detected (Not Detect.)
[2021-12-06] MEDS: Magnesium Hydrox/Alum Hydrox 30 ML ORAL.SUSP PO (13:16)
[2021-12-06] MEDS: iohexoL 350 MG/ML 100 ML INFUS..BTL IV (13:25)
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
[2021-12-06] MEDS: Enoxaparin Sodium 40 MG/0.4 ML SYRINGE SUBCUT (16:54)
--- NOTE | 2021-12-06 18:02 | PC.NURSE ---
attempted report to Rn Wen, RN to call this RN back
--- NOTE | 2021-12-06 18:22 | PC.NURSE ---
Report to [facility] at this time. Pt being provided with snacks and drink per request
--- NOTE | 2021-12-06 19:00 | PC.NURSE ---
Report to [facility]. Pt pending transport to go upstairs. Report already has been called
[2021-12-06] MEDS: 0.9 % Sodium Chloride Flush 3 ML SYRINGE IVFLUSH (19:23)
[2021-12-06] MEDS: hydrALAZINE HCl 20 MG/ML VIAL 5 MG IVPUSH (21:19)
[2021-12-07] VITALS: BP 163/76; PULSE 65; RESP 18; TEMP 36.5; O2SAT 97
[2021-12-07] MEDS: HYDROmorphone HCl 2 MG/ML VIAL IVPUSH ×11 (00:16→22:50)
--- NOTE | 2021-12-07 01:13 | PC.NURSE ---
After arrival to unit, pt's vitals signs obtained. BP elevated at 198/106-Dr Gomez notified and ordered IV Hydralazine which was given with good affect. BP recheck was 149/70. Pt continues to have sharp back pain that radiates down his legs when attempting to move off of bed. Warm packs applied prn. Pt also receiving scheduled and prn pain medication-see MAR for frequency. HS snack given. Will continue to monitor.
[2021-12-07] MEDS: Acetaminophen 325 MG TABLET 650 MG PO (01:58)
[2021-12-07 04:00] VITALS: BP 144/80; PULSE 65; RESP 18; TEMP 36.8
[2021-12-07 05:44] LABS: MANUAL DIFF FLAG NO
[2021-12-07 05:49] LABS: Basophils Percent Auto 0.6 % (0-2); Eosinophils Absolute Auto 0.1 X10*3/uL (0.0-0.4); Eosinophils Percent Auto 1.9 % (0-4); Hematocrit 37.6 % (42.0-52.0); Hemoglobin 11.9 g/dl (14.0-18.0); Imm Gran Abs Auto 0.02 X10*3/uL (0.00-0.03); Imm Gran Pct Auto 0.3 % (0.0-0.4); Lymphocytes Percent Auto 29.5 % (20-40); Mean Corpuscular HGB Conc 31.6 g/dl (31.0-36.0); Mean Corpuscular Hemoglobin 27.8 pg (27.0-33.0); Mean Corpuscular Volume 87.9 fL (80.0-98.0); Mean Platelet Volume 9.9 fL (9.4-12.4); Monocytes Absolute Auto 0.6 X10*3/uL (0.1-1.2); Monocytes Percent Auto 8.3 % (2-11); Neutrophils Absolute Auto 4.1 x10*3/uL (2.0-8.3); Neutrophils Percent Auto 59.4 % (45-73); Platelet Count 265 X10*3/uL (160-400); Red Blood Count 4.28 X10*6/uL (4.60-5.80); White Blood Count 6.9 X10*3/uL (4.8-10.8)
[2021-12-07] MEDS: Omeprazole 40 MG CAPSULE.DR PO (06:12)
[2021-12-07 06:24] LABS: Anion Gap 14 (12-20); Blood Urea Nitrogen 9 mg/dL (9-16); Calcium 8.5 mg/dL (8.4-10.2); Carbon Dioxide 25 mmol/L (22-29); Chloride 104 mmol/L (96-108); Creatinine Clr Calc Pharmacy 148.9; Estimated Glomerular Filt Rate > 60; Glucose Random 148 mg/dL (60-115); Potassium 3.8 mmol/L (3.3-5.1); Sodium 139 mmol/L (135-145)
[2021-12-07 07:27] VITALS: BP 151/70; PULSE 60; RESP 16; TEMP 36.6; O2SAT 95
--- NOTE | 2021-12-07 08:11 | P.PNIM_ITS ---
Subjective Subjective Date of Service: 12/07/21 Review of Systems Follow up back pain still with pain to lower back laying in bed Physical Exam Vital Signs: Vital Signs: Last Vital Signs Temp 97.8 F 12/07/21 07:27 Pulse 60 12/07/21 07:27 Resp 16 12/07/21 07:27 BP 151/70 H 12/07/21 07:27 Pulse Ox 95 12/07/21 07:27 O2 Del Method 12/07/21 07:27 BMI result Body Mass Index 47.3 Appearing in no acute distress lung sounds are clear to auscultation heart regular rate rhythm, clear S1, S2 positive bowel sounds, abdomen is soft, nontender, obese neuro patient is alert x3, no focal deficits Objective Data Active Medications Acetaminophen (Acetaminophen 325 Mg Tablet) 650 mg PO Q6H PRN PRN Reason: Pain, Mild (Pain Scale 1-3) Last Admin: 12/07/21 01:58 Dose: 650 mg Documented By: FRED Amlodipine Besylate (Amlodipine Besylate 10 Mg Tablet) 10 mg PO DAILY [facility]; P rotocol Last Admin: 12/06/21 09:52 Dose: 10 mg Documented By: WILMER Ascorbic Acid (Ascorbic Acid 500 Mg Tablet) 500 mg PO DAILY [facility] Last Admin: 12/06/21 09:53 Dose: 500 mg Documented By: WILMER Atorvastatin Calcium (Atorvastatin Calcium 10 Mg Tablet) 10 mg PO DAILY [facility] Last Admin: 12/06/21 09:51 Dose: 10 mg Documented By: WILMER Cyclobenzaprine HCl (Cyclobenzaprine Hcl 10 Mg Tablet) 10 mg PO TID PRN PRN Reason: Back pain Diazepam (Diazepam 10 Mg/2 Ml Cartridge) 5 mg IVPUSH ONCE PRN PRN Reason: anxiety Last Admin: 12/06/21 09:51 Dose: 5 mg Documented By: WILMER Divalproex Sodium (Divalproex Sodium 500 Mg Tablet.Dr) 500 mg PO BID [facility] Last Admin: 12/06/21 21:23 Dose: 500 mg Documented By: FRED Enoxaparin Sodium (Enoxaparin Sodium 40 Mg/0.4 Ml Syringe) 40 mg SUBCUT Q24H [facility] Last Admin: 12/06/21 16:54 Dose: 40 mg Documented By: TU Fluoxetine HCl (Fluoxetine Hcl 20 Mg Capsule) 20 mg PO DAILY [facility] Last Admin: 12/06/21 09:53 Dose: 20 mg Documented By: WILMER Gabapentin (Gabapentin 100 Mg Capsule) 100 mg PO TID [facility] Last Admin: 12/06/21 21:23 Dose: 100 mg Documented By: FRED Hydromorphone HCl (Hydromorphone Hcl 2 Mg/Ml Vial) 2 mg IVPUSH Q2H PRN; Protocol PRN Reason: Pain, Severe (Pain Scale 7-10) Last Admin: 12/07/21 06:15 Dose: 2 mg Documented By: FRED Lisinopril (Lisinopril 40 Mg Tablet) 40 mg PO DAILY [facility]; Protocol Last Admin: 12/06/21 09:52 Dose: 40 mg Documented By: WILMER Metoprolol Succinate (Metoprolol Succinate Er 100 Mg Tab.Er.24h) 200 mg PO DAILY [facility]; Protocol Last Admin: 12/06/21 09:52 Dose: 200 mg Documented By: WILMER Multivitamins/Vitamin C (Multivitamin Tablet) 1 tab PO DAILY [facility] Last Admin: 12/06/21 09:53 Dose: 1 tab Documented By: WILMER Omeprazole (Omeprazole 40 Mg Capsule.Dr) 40 mg PO DAILY@0630 [facility] Last Admin: 12/07/21 06:12 Dose: 40 mg Documented By: FRED Ondansetron HCl (Ondansetron Hcl 4 Mg/2 Ml Vial) 4 mg IVPUSH Q8H PRN PRN Reason: Nausea and Vomiting Oxycodone HCl (Oxycodone Hcl Er 10 Mg Tab.Er.12h) 30 mg PO BID [facility] Last Admin: 12/06/21 21:23 Dose: 30 mg Documented By: FRED Oxycodone HCl (Oxycodone Hcl Immed Release 5 Mg Tablet) 10 mg PO Q4H PRN PRN Reason: Pain, Severe (Pain Scale 7-10) Pharmacy Consult (Consult Rx Perform Med Rec) 1 each MISCELLANE ONCE PRN PRN Reason: Consult order Sodium Chloride (0.9 % Sodium Chloride Flush 3 Ml Syringe) 3 ml IVFLUSH QSHIFT [facility] Last Admin: 12/06/21 19:23 Dose: 3 ml Documented By: FRED Labs CBC & Chem 7: 07/26/22 05:20 12/07/21 05:20 Labs: Laboratory Results - last 24 hr 12/06/21 12/06/21 12/07/21 06:34 08:28 05:20 MCV 87.9 MCH 27.8 MCHC 31.6 RDW 15.0 Plt Count 265 MPV 9.9 Immature Gran % (Auto) 0.3 Neut % (Auto) 59.4 Lymph % (Auto) 29.5 [place] % (Auto) 8.3 Eos % (Auto) 1.9 Baso % (Auto) 0.6 Lymph # (Auto) 2.0 [place] # (Auto) 0.6 Eos # (Auto) 0.1 Baso # (Auto) 0.0 Abs Immat Gran (auto) 0.02 Absolute Neuts (auto) 4.1 Absolute Nucleated RBC 0.000 Nucleated RBC % (auto) 0.0 Anion Gap Estim Creat Clear Calc Estimated GFR Random Glucose Calcium Urine Color YELLOW Urine Appearance CLEAR Urine pH 6.5 Ur Specific [place] 1.025 Urine Protein NEG Urine Glucose (UA) NEG Urine Ketones 5 Urine Blood NEG Urine Nitrite NEG Ur Leukocyte Esterase NEG Respiratory Panel [place] See Note Adenovirus (Rapid PCR) Not Detected B.pert (TEM-PCR) Not Detected B.parapertussis DNA PCR Not Detected C. pneumoniae DNA (PCR) Not Detected Coronavirus OC43 (PCR) Not Detected Coronavirus HKU1 (PCR) Not Detected Coronavirus 229E (PCR) Not Detected Coronavirus NL63 (PCR) Not Detected Human Metapneumovir PCR Not Detected Influenza A (RT-PCR) Not Detected Influenza B (RT-PCR) Not Detected M. pneumoniae (PCR) Not Detected Parainfluenza 1 (PCR) Not Detected Parainfluenza 2 (PCR) Not Detected Parainfluenza 3 (PCR) Not Detected Parainfluenza 4 (PCR) Not Detected RSV (PCR) Not Detected Entero/Rhino (PCR) Not Detected SARS-CoV-2 RNA (RT-PCR) Not Detected 12/07/21 05:20 MCV MCH MCHC RDW Plt Count MPV Immature Gran % (Auto) Neut % (Auto) Lymph % (Auto) [place] % (Auto) Eos % (Auto) Baso % (Auto) Lymph # (Auto) [place] # (Auto) Eos # (Auto) Baso # (Auto) Abs Immat Gran (auto) Absolute Neuts (auto) Absolute Nucleated RBC Nucleated RBC % (auto) Anion Gap 14 Estim Creat Clear Calc 148.9 Estimated GFR > 60 Random Glucose 148 H D Calcium 8.5 Urine Color Urine Appearance Urine pH Ur Specific [place] Urine Protein Urine Glucose (UA) Urine Ketones Urine Blood Urine Nitrite Ur Leukocyte Esterase Respiratory Panel [place] Adenovirus (Rapid PCR) B.pert (TEM-PCR) B.parapertussis DNA PCR C. pneumoniae DNA (PCR) Coronavirus OC43 (PCR) Coronavirus HKU1 (PCR) Coronavirus 229E (PCR) Coronavirus NL63 (PCR) Human Metapneumovir PCR Influenza A (RT-PCR) Influenza B (RT-PCR) M. pneumoniae (PCR) Parainfluenza 1 (PCR) Parainfluenza 2 (PCR) Parainfluenza 3 (PCR) Parainfluenza 4 (PCR) RSV (PCR) Entero/Rhino (PCR) SARS-CoV-2 RNA (RT-PCR) Assessment and Plan (1) Chronic low back pain: Status: Acute Plan 56 year old placed on observation for intractable back pain Intractable back pain, acute on chronic still with pain Continue home OxyContin Added Dilaudid Supportive care Lumbar CT negative for acute abnormality MRI machine is unable to accommodate patient's weight capacity PT consult Hypertension Continue medications, stable Seizure disorder.? Seizure precautions Continue home medications Morbid obesity.? BMI 45.4 Discussed the importance of weight management as this may be contributing to worsening of other comorbidities DVT prophylaxis with Lovenox Attending Dr. Lloyd Full code OBS Quality Stroke Does the patient have a stroke diagnosis?: No VTE Prior VTE?: No VTE Risk Level:: Medical - moderate - high VTE Device Contraindication: Treatment Not Indicated VTE Drug Contraindication: N/A - Med Ordered
[2021-12-07] MEDS: Multivitamin TABLET 1 TAB PO (08:20)
[2021-12-07] MEDS: lisinopriL 40 MG TABLET PO (08:20)
[2021-12-07] MEDS: Ascorbic Acid 500 MG TABLET PO (08:20)
[2021-12-07] MEDS: Metoprolol Succinate ER 100 MG TAB.ER.24H 200 MG PO (08:20)
[2021-12-07] MEDS: Divalproex Sodium 500 MG TABLET.DR PO ×2 (08:20→20:50)
[2021-12-07] MEDS: Gabapentin 100 MG CAPSULE PO ×3 (08:20→20:50)
[2021-12-07] MEDS: FLUoxetine HCl 20 MG CAPSULE PO (08:20)
[2021-12-07] MEDS: oxyCODONE HCl ER 10 MG TAB.ER.12H 30 MG PO ×2 (08:21→21:40)
[2021-12-07] MEDS: amLODIPine Besylate 10 MG TABLET PO (08:21)
[2021-12-07] MEDS: Atorvastatin Calcium 10 MG TABLET PO (08:21)
[2021-12-07] MEDS: 0.9 % Sodium Chloride Flush 3 ML SYRINGE IVFLUSH ×3 (08:25→20:50)
[2021-12-07 11:55] VITALS: BP 102/56; PULSE 60; RESP 17; TEMP 36.7; O2SAT 96
[2021-12-07 15:57] VITALS: BP 150/72; PULSE 60; RESP 18; TEMP 36.4; O2SAT 96
[2021-12-07] MEDS: Enoxaparin Sodium 40 MG/0.4 ML SYRINGE SUBCUT (16:37)
[2021-12-07 19:49] VITALS: BP 110/57; PULSE 50; RESP 19; TEMP 36.2; O2SAT 93
[2021-12-08] VITALS: BP 169/82; PULSE 59; RESP 17; TEMP 36.2; O2SAT 96
[2021-12-08] MEDS: HYDROmorphone HCl 2 MG/ML VIAL IVPUSH ×9 (00:46→20:10)
[2021-12-08 04:00] VITALS: BP 155/60; PULSE 54; RESP 18; TEMP 36.1; O2SAT 100
[2021-12-08] MEDS: Omeprazole 40 MG CAPSULE.DR PO ×2 (06:31→15:32)
[2021-12-08 07:36] VITALS: BP 142/65; PULSE 53; RESP 12; TEMP 36.2; O2SAT 95
--- NOTE | 2021-12-08 08:13 | MHC.CM.PN ---
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 PT VERIFIES PCP IS MILDRED COLEMAN X2 AND VERIFIES HIS HCP IS CLINTON MARTINEZ [phone], COPY HAS BEEN REQUESTED. D/C PLAN: HOME W/RESUMP OF EMPLOYER RELATIONS REPRESENTATIVE HRS W/FRIEND FOR TRANSPORT
[2021-12-08] MEDS: amLODIPine Besylate 10 MG TABLET PO (08:33)
[2021-12-08] MEDS: Ascorbic Acid 500 MG TABLET PO (08:33)
[2021-12-08] MEDS: Simethicone 80 MG TAB.CHEW PO (08:33)
[2021-12-08] MEDS: Atorvastatin Calcium 10 MG TABLET PO (08:33)
[2021-12-08] MEDS: Metoprolol Succinate ER 100 MG TAB.ER.24H 200 MG PO (08:33)
[2021-12-08] MEDS: lisinopriL 40 MG TABLET PO (08:33)
[2021-12-08] MEDS: Multivitamin TABLET 1 TAB PO (08:33)
[2021-12-08] MEDS: Gabapentin 100 MG CAPSULE PO (08:34)
[2021-12-08] MEDS: oxyCODONE HCl ER 10 MG TAB.ER.12H 30 MG PO ×2 (08:34→20:09)
[2021-12-08] MEDS: Divalproex Sodium 500 MG TABLET.DR PO ×2 (08:34→20:09)
[2021-12-08] MEDS: FLUoxetine HCl 20 MG CAPSULE PO (08:34)
[2021-12-08] MEDS: 0.9 % Sodium Chloride Flush 3 ML SYRINGE IVFLUSH ×3 (08:35→20:10)
[2021-12-08 11:28] VITALS: BP 116/60; PULSE 50; RESP 14; TEMP 36.5; O2SAT 94
--- NOTE | 2021-12-08 14:02 | HO.PM.IMPN ---
Subjective Subjective Date of Service: 12/08/21 Interval History: back pain/ leg radiation and weakness Review of Systems symptoms seems similar to yesterday. denies any nausea vomiting or abdominal pain or fever or chills. Physical Exam Vital Signs: Vital Signs: Last Vital Signs Temp 97.7 F 12/08/21 11:28 Pulse 50 12/08/21 11:28 Resp 14 12/08/21 11:28 BP 116/60 12/08/21 11:28 Pulse Ox 94 12/08/21 11:28 O2 Del Method 12/08/21 11:28 BMI result Body Mass Index 47.3 Appearing : awake ,alert ,somewhat in pain ?head is normocephalic atraumatic ?eyes pupils are PERRLA sclera is anicteric ?mouth throat mucous membranes are intact and moist ?neck is supple no lymphadenopathy, no JVD noted ?lung sounds are clear to auscultation ?heart regular rate rhythm, clear? S1, S2 ?positive bowel sounds, abdomen is soft, nontender, obese ?neuro patient is alert x3, moves upper ext lower ext -try to move legs -pain radiates boh legs , unable to stand moves leg minimum due to pain sensations intact Objective Data Active Medications Acetaminophen (Acetaminophen 325 Mg Tablet) 650 mg PO Q6H PRN PRN Reason: Pain, Mild (Pain Scale 1-3) Last Admin: 12/07/21 01:58 Dose: 650 mg Documented By: FRED Amlodipine Besylate (Amlodipine Besylate 10 Mg Tablet) 10 mg PO DAILY [facility]; Protocol Last Admin: 12/08/21 08:33 Dose: 10 mg Documented By: ITZEL Ascorbic Acid (Ascorbic Acid 500 Mg Tablet) 500 mg PO DAILY [facility] Last Admin: 12/08/21 08:33 Dose: 500 mg Documented By: ITZEL Atorvastatin Calcium (Atorvastatin Calcium 10 Mg Tablet) 10 mg PO DAILY [facility] Last Admin: 12/08/21 08:33 Dose: 10 mg Documented By: ITZEL Cyclobenzaprine HCl (Cyclobenzaprine Hcl 10 Mg Tablet) 10 mg PO TID PRN PRN Reason: Back pain Diazepam (Diazepam 10 Mg/2 Ml Cartridge) 5 mg IVPUSH ONCE PRN PRN Reason: anxiety Last Admin: 12/06/21 09:51 Dose: 5 mg Documented By: WILMER Divalproex Sodium (Divalproex Sodium 500 Mg Tablet.) 500 mg PO BID [facility] Last Admin: 12/08/21 08:34 Dose: 500 mg Documented By: ITZEL Enoxaparin Sodium (Enoxaparin Sodium 40 Mg/0.4 Ml Syringe) 40 mg SUBCUT Q24H [facility] Last Admin: 12/07/21 16:37 Dose: 40 mg Documented By: ITZEL Fluoxetine HCl (Fluoxetine Hcl 20 Mg Capsule) 20 mg PO DAILY [facility] Last Admin: 12/08/21 08:34 Dose: 20 mg Documented By: ITZEL Gabapentin (Gabapentin 100 Mg Capsule) 100 mg PO TID [facility] Last Admin: 12/08/21 08:34 Dose: 100 mg Documented By: ITZEL Hydromorphone HCl (Hydromorphone Hcl 2 Mg/Ml Vial) 2 mg IVPUSH Q2H PRN; Protocol PRN Reason: Pain, Severe (Pain Scale 7-10) Last Admin: 12/08/21 13:12 Dose: 2 mg Documented By: ITZEL Lisinopril (Lisinopril 40 Mg Tablet) 40 mg PO DAILY [facility]; Protocol Last Admin: 12/08/21 08:33 Dose: 40 mg Documented By: ITZEL Metoprolol Succinate (Metoprolol Succinate Er 100 Mg Tab.Er.24h) 200 mg PO DAILY [facility]; Protocol Last Admin: 12/08/21 08:33 Dose: 200 mg Documented By: ITZEL Multivitamins/Vitamin C (Multivitamin Tablet) 1 tab PO DAILY [facility] Last Admin: 12/08/21 08:33 Dose: 1 tab Documented By: ITZEL Omeprazole (Omeprazole 40 Mg Capsule.) 40 mg PO DAILY@0630 [facility] Last Admin: 12/08/21 06:31 Dose: 40 mg Documented By: FRED Ondansetron HCl (Ondansetron Hcl 4 Mg/2 Ml Vial) 4 mg IVPUSH Q8H PRN PRN Reason: Nausea and Vomiting Oxycodone HCl (Oxycodone Hcl Er 10 Mg Tab.Er.12h) 30 mg PO BID [facility] Last Admin: 12/08/21 08:34 Dose: 30 mg Documented By: ITZEL Oxycodone HCl (Oxycodone Hcl Immed Release 5 Mg Tablet) 10 mg PO Q4H PRN PRN Reason: Pain, Severe (Pain Scale 7-10) Pharmacy Consult (Consult Rx Perform Med Rec) 1 each MISCELLANE ONCE PRN PRN Reason: Consult order Sodium Chloride (0.9 % Sodium Chloride Flush 3 Ml Syringe) 3 ml IVFLUSH QSHIFT [facility] Last Admin: 12/08/21 08:35 Dose: 3 ml Documented By: ITZEL Labs CBC & Chem 7: 12/07/21 05:20 12/07/21 05:20 Assessment and Plan (1) Acute back pain: Status: Acute (2) Chronic low back pain: Status: Acute Plan 56 year old placed on observation for intractable back pain Intractable back pain, acute on chronic still with significant pain/ weakness Continue home OxyContin,oxycodone,pregabalin, Dilaudid, lidocaine patch for the back,also added ibuprofen Supportive care Lumbar CT negative for acute abnormality MRI machine is unable to accommodate patient's weight capacity neurology eval noted- Mainstay of management is reassurance and education, starting physical activity again, paying attention to psychosocial factors, and pain management without aggressive doses of opiates.? If all fails, an epidural injection at L2-3 level can also be tried Hypertension Continue medications, stable Seizure disorder.? Seizure precautions Continue home medications Morbid obesity.? BMI 45.4 Discussed the importance of weight management as this may be contributing to worsening of other comorbidities DVT prophylaxis with Lovenox inpatient need: Intractable back pain, acute on chronic-need pain management and may need epidural Quality Stroke Does the patient have a stroke diagnosis?: No VTE Prior VTE?: No VTE Risk Level:: Medical - moderate - high VTE Device Contraindication: Treatment Not Indicated VTE Drug Contraindication: N/A - Med Ordered
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
[2021-12-08 15:25] VITALS: BP 147/63; PULSE 57; RESP 17; TEMP 36.2; O2SAT 98
[2021-12-08] MEDS: Enoxaparin Sodium 40 MG/0.4 ML SYRINGE SUBCUT (15:31)
[2021-12-08] MEDS: Pregabalin 75 MG CAPSULE PO ×2 (15:32→20:09)
[2021-12-08] MEDS: Ibuprofen 400 MG TABLET PO (15:32)
[2021-12-08] MEDS: Lidocaine 4 % Patch ADH..PATCH 1 PATCH TRANSDERMA (17:59)
[2021-12-08 18:47] VITALS: BP 97/62; PULSE 57; RESP 18; TEMP 36.2; O2SAT 94
[2021-12-08] MEDS: Cyclobenzaprine HCl 10 MG TABLET PO (20:09)
[2021-12-09] VITALS: BP 119/56; PULSE 70; RESP 16; TEMP 36.3; O2SAT 96
[2021-12-09] MEDS: HYDROmorphone HCl 2 MG/ML VIAL IVPUSH ×5 (00:09→08:42)
[2021-12-09 04:00] VITALS: BP 146/70; PULSE 62; RESP 18; TEMP 36.3; O2SAT 96
[2021-12-09] MEDS: Omeprazole 40 MG CAPSULE.DR PO ×2 (06:58→16:50)
[2021-12-09 07:24] VITALS: BP 126/60; PULSE 73; RESP 16; TEMP 36.4; O2SAT 92
[2021-12-09] MEDS: Lidocaine 4 % Patch ADH..PATCH 1 PATCH TRANSDERMA (08:42)
[2021-12-09] MEDS: Divalproex Sodium 500 MG TABLET.DR PO ×2 (08:43→21:12)
[2021-12-09] MEDS: Ascorbic Acid 500 MG TABLET PO (08:43)
[2021-12-09] MEDS: Pregabalin 75 MG CAPSULE PO ×2 (08:43→21:12)
[2021-12-09] MEDS: FLUoxetine HCl 20 MG CAPSULE PO (08:43)
[2021-12-09] MEDS: Multivitamin TABLET 1 TAB PO (08:43)
[2021-12-09] MEDS: oxyCODONE HCl ER 10 MG TAB.ER.12H 30 MG PO ×2 (08:43→21:12)
[2021-12-09] MEDS: Atorvastatin Calcium 10 MG TABLET PO (08:43)
[2021-12-09] MEDS: 0.9 % Sodium Chloride Flush 3 ML SYRINGE IVFLUSH ×3 (08:43→21:13)
[2021-12-09] MEDS: lisinopriL 40 MG TABLET PO (08:44)
[2021-12-09] MEDS: Metoprolol Succinate ER 100 MG TAB.ER.24H 200 MG PO (08:44)
[2021-12-09] MEDS: amLODIPine Besylate 10 MG TABLET PO (08:44)
--- NOTE | 2021-12-09 08:46 | P.CDIC_ITS ---
CDI Concurrent Query Documentation Clarification: PHYSICIAN'S DOCUMENTATION REQUEST Date of Query: 12/09/21 0846 Patient Name: Miles Pineda Admit Date: 12/08/21 Dear Doctor, A review of the medical record indicates additional documentation may be needed. Please review below and update the documentation accordingly. Clinical Indicators: A diagnosis of seizure(s) was documented on 12/08/21. Risk Factors/Clinical Indicators/Treatments Per MD progress note 12/08/21: Seizure disorder.? Seizure precautions Continue home medications If possible, please further clarify in the Progress Notes, the type/etiology, acuity and control status of seizure(s): Specify type/etiology: * Idiopathic * Febrile (specify simple or complex) * Due to stroke * Post-traumatic * Due to external cause (specify if drug, alcohol, stress, etc.) * Absence * Generalized epilepsy (grand mal, myoclonic, atonic, clonic, tonic-clonic, etc.) * Focal or partial (specify simple or complex) * Petit mal * Recurrent - further specify type/etiology * Other * Unable to determine Specify acuity: * With status epilepticus * Without status epilepticus * Other * Unable to determine Specify control status: * Well controlled * Intractable * Pharmacoresistant * Poorly controlled * Refractory * Treatment resistant * Other * Unable to determine Use of terms such as suspected, likely, concern for, or probable (associated with a specific diagnosis that is being evaluated, monitored, or treated as if it exists) are acceptable and can be coded in the inpatient setting, when documented at the time of discharge. Thank you, Pavithra Rowe RN Extension: [phone] Please use your independent medical judgment in providing your response. THIS QUERY IS PART OF THE PERMANENT MEDICAL RECORD Provider Response: Other Other Diagnosis: seizure disorder-other.
--- NOTE | 2021-12-09 08:46 | MHC.CDI.CONC ---
CDI Concurrent Query Documentation Clarification: PHYSICIAN'S DOCUMENTATION REQUEST Date of Query: 12/09/21 0846 Patient Name: Miles Pineda Admit Date: 12/08/21 Dear Doctor, A review of the medical record indicates additional documentation may be needed. Please review below and update the documentation accordingly. Clinical Indicators: A diagnosis of seizure(s) was documented on 12/08/21. Risk Factors/Clinical Indicators/Treatments Per MD progress note 12/08/21: Seizure disorder.? Seizure precautions Continue home medications If possible, please further clarify in the Progress Notes, the type/etiology, acuity and control status of seizure(s): Specify type/etiology: Idiopathic Febrile (specify simple or complex) Due to stroke Post-traumatic Due to external cause (specify if drug, alcohol, stress, etc.) Absence Generalized epilepsy (grand mal, myoclonic, atonic, clonic, tonic-clonic, etc.) Focal or partial (specify simple or complex) Petit mal Recurrent - further specify type/etiology Other Unable to determine Specify acuity: With status epilepticus Without status epilepticus Other Unable to determine Specify control status: Well controlled Intractable Pharmacoresistant Poorly controlled Refractory Treatment resistant Other Unable to determine Use of terms such as suspected, likely, concern for, or probable (associated with a specific diagnosis that is being evaluated, monitored, or treated as if it exists) are acceptable and can be coded in the inpatient setting, when documented at the time of discharge. Thank you, Pavithra Rowe RN Extension: [phone] Please use your independent medical judgment in providing your response. THIS QUERY IS PART OF THE PERMANENT MEDICAL RECORD Provider Response: Other Other Diagnosis: seizure disorder-other.
[2021-12-09 11:06] VITALS: BP 139/74; PULSE 69; RESP 15; TEMP 36.8; O2SAT 96
[2021-12-09] MEDS: Cyclobenzaprine HCl 10 MG TABLET PO (11:12)
[2021-12-09] MEDS: predniSONE 20 MG TABLET 40 MG PO (11:13)
[2021-12-09] MEDS: oxyCODONE HCl Immed Release 5 MG TABLET 10 MG PO ×3 (11:13→23:48)
[2021-12-09] MEDS: Acetaminophen 325 MG TABLET 650 MG PO (11:13)
--- NOTE | 2021-12-09 13:02 | P.PNIM_ITS ---
Subjective Subjective Date of Service: 12/09/21 Interval History: back pain/ leg radiation and weakness Review of Systems seems improving went to [facility] last night has episode of diarrhae Physical Exam Vital Signs: Vital Signs: Last Vital Signs Temp 98.2 F 12/09/21 11:06 Pulse 69 12/09/21 11:06 Resp 15 12/09/21 11:06 BP 139/74 12/09/21 11:06 Pulse Ox 96 12/09/21 11:06 O2 Del Method 12/09/21 11:06 BMI result Body Mass Index 47.3 Appearing : awake ,alert ,somewhat in pain ?head is normocephalic atraumatic ?eyes pupils are PERRLA sclera is anicteric ?mouth throat mucous membranes are intact and moist ?neck is supple no lymphadenopathy, no JVD noted ?lung sounds are clear to auscultation ?heart regular rate rhythm, clear? S1, S2 ?positive bowel sounds, abdomen is soft, nontender, obese ?neuro patient is alert x3,? moves upper ext lower ext -pain soemwhat improving ,walk to bathroomlast night sensations intact Objective Data Active Medications Acetaminophen (Acetaminophen 325 Mg Tablet) 650 mg PO Q6H PRN PRN Reason: Pain, Mild (Pain Scale 1-3) Last Admin: 12/09/21 11:13 Dose: 650 mg Documented By: CLARISA Amlodipine Besylate (Amlodipine Besylate 10 Mg Tablet) 10 mg PO DAILY [facility]; Protocol Last Admin: 12/09/21 08:44 Dose: 10 mg Documented By: ITZEL Ascorbic Acid (Ascorbic Acid 500 Mg Tablet) 500 mg PO DAILY [facility] Last Admin: 12/09/21 08:43 Dose: 500 mg Documented By: ITZEL Atorvastatin Calcium (Atorvastatin Calcium 10 Mg Tablet) 10 mg PO DAILY [facility] Last Admin: 12/09/21 08:43 Dose: 10 mg Documented By: ITZEL Cyclobenzaprine HCl (Cyclobenzaprine Hcl 10 Mg Tablet) 10 mg PO TID PRN PRN Reason: Back pain Last Admin: 12/09/21 11:12 Dose: 10 mg Documented By: CLARISA Diazepam (Diazepam 10 Mg/2 Ml Cartridge) 5 mg IVPUSH ONCE PRN PRN Reason: anxiety Last Admin: 12/06/21 09:51 Dose: 5 mg Documented By: WILMER Divalproex Sodium (Divalproex Sodium 500 Mg Tablet.) 500 mg PO BID [facility] Last Admin: 12/09/21 08:43 Dose: 500 mg Documented By: ITZEL Enoxaparin Sodium (Enoxaparin Sodium 40 Mg/0.4 Ml Syringe) 40 mg SUBCUT Q24H [facility] Last Admin: 12/08/21 15:31 Dose: 40 mg Documented By: ITZEL Fluoxetine HCl (Fluoxetine Hcl 20 Mg Capsule) 20 mg PO DAILY [facility] Last Admin: 12/09/21 08:43 Dose: 20 mg Documented By: ITZEL Lidocaine (Lidocaine 4 % Patch Adh..Patch) 1 patch TRANSDERMA DAILY [facility]; Protocol Last Admin: 12/09/21 08:42 Dose: 1 patch Documented By: ITZEL Lisinopril (Lisinopril 40 Mg Tablet) 40 mg PO DAILY [facility]; Protocol Last Admin: 12/09/21 08:44 Dose: 40 mg Documented By: ITZEL Metoprolol Succinate (Metoprolol Succinate Er 100 Mg Tab.Er.24h) 200 mg PO DAILY [facility]; Protocol Last Admin: 12/09/21 08:44 Dose: 200 mg Documented By: ITZEL Multivitamins/Vitamin C (Multivitamin Tablet) 1 tab PO DAILY [facility] Last Admin: 12/09/21 08:43 Dose: 1 tab Documented By: ITZEL Omeprazole (Omeprazole 40 Mg Capsule.) 40 mg PO BID@0630,1630 [facility] Last Admin: 12/09/21 06:58 Dose: 40 mg Documented By: DANNA Ondansetron HCl (Ondansetron Hcl 4 Mg/2 Ml Vial) 4 mg IVPUSH Q8H PRN PRN Reason: Nausea and Vomiting Oxycodone HCl (Oxycodone Hcl Er 10 Mg Tab.Er.12h) 30 mg PO BID [facility] Last Admin: 12/09/21 08:43 Dose: 30 mg Documented By: ITZEL Oxycodone HCl (Oxycodone Hcl Immed Release 5 Mg Tablet) 10 mg PO Q4H PRN PRN Reason: Pain, Severe (Pain Scale 7-10) Last Admin: 12/09/21 11:13 Dose: 10 mg Documented By: CLARISA Pharmacy Consult (Consult Rx Perform Med Rec) 1 each MISCELLANE ONCE PRN PRN Reason: Consult order Pregabalin (Pregabalin 75 Mg Capsule) 75 mg PO BID [facility] Last Admin: 12/09/21 08:43 Dose: 75 mg Documented By: ITZEL Sodium Chloride (0.9 % Sodium Chloride Flush 3 Ml Syringe) 3 ml IVFLUSH QSHIFT [facility] Last Admin: 12/09/21 08:43 Dose: 3 ml Documented By: ITZEL Labs CBC & Chem 7: 12/07/21 05:20 12/07/21 05:20 Assessment and Plan (1) Acute back pain: Status: Acute Plan 56 year old placed on observation for intractable back pain Intractable back pain, acute on chronic still with significant? pain/ weakness Continue home OxyContin,oxycodone,pregabalin, lidocaine patch for the back. stop dilaudid , patient should use oxycodone instead. Supportive care Lumbar CT negative for acute abnormality MRI machine is unable to accommodate patient's weight capacity neurology eval? noted- Mainstay of management is reassurance and education, starting physical activity again, paying attention to psychosocial factors, and pain management without aggressive doses of opiates.? If all fails, an epidural injection at L2-3 level. seems patient improving with pain control, Pt will reeval today Hypertension Continue medications, stable hx Seizure disorder-other .? Seizure precautions Continue home medications Morbid obesity.? BMI 45.4 Discussed the importance of weight management as this may be contributing to worsening of other comorbidities diarrhae : no episode over the day so far, no abdominal pain or nausea vomiting. Will check C diff DVT prophylaxis with Lovenox inpatient need: Intractable back pain, acute on chronic-need pain management and may need epidural. Quality Stroke Does the patient have a stroke diagnosis?: No VTE Prior VTE?: No VTE Risk Level:: Medical - moderate - high VTE Device Contraindication: Treatment Not Indicated VTE Drug Contraindication: N/A - Med Ordered
[2021-12-09 15:06] VITALS: BP 125/60; PULSE 69; RESP 18; TEMP 36.6; O2SAT 93
[2021-12-09] MEDS: Enoxaparin Sodium 40 MG/0.4 ML SYRINGE SUBCUT (16:50)
[2021-12-09 19:23] VITALS: BP 128/61; PULSE 68; RESP 18; TEMP 36.2; O2SAT 94
[2021-12-10] VITALS (7 sets, daily range): BP systolic 134–162; BP diastolic 61–76; PULSE 60–64; RESP 14–18; TEMP 36.5–36.9; O2SAT 94–97
[2021-12-10] MEDS: HYDROmorphone HCl 0.5 MG/0.5 ML SYRINGE IVPUSH (02:49)
[2021-12-10] MEDS: oxyCODONE HCl Immed Release 5 MG TABLET 10 MG PO ×3 (04:38→14:57)
[2021-12-10] MEDS: Omeprazole 40 MG CAPSULE.DR PO (06:10)
[2021-12-10] MEDS: Lidocaine 4 % Patch ADH..PATCH 1 PATCH TRANSDERMA (08:05)
[2021-12-10] MEDS: lisinopriL 40 MG TABLET PO (08:06)
[2021-12-10] MEDS: FLUoxetine HCl 20 MG CAPSULE PO (08:06)
[2021-12-10] MEDS: Pregabalin 75 MG CAPSULE PO (08:06)
[2021-12-10] MEDS: Metoprolol Succinate ER 100 MG TAB.ER.24H 200 MG PO (08:06)
[2021-12-10] MEDS: Multivitamin TABLET 1 TAB PO (08:07)
[2021-12-10] MEDS: Ascorbic Acid 500 MG TABLET PO (08:07)
[2021-12-10] MEDS: Atorvastatin Calcium 10 MG TABLET PO (08:07)
[2021-12-10] MEDS: Divalproex Sodium 500 MG TABLET.DR PO (08:07)
[2021-12-10] MEDS: oxyCODONE HCl ER 10 MG TAB.ER.12H 30 MG PO (08:07)
[2021-12-10] MEDS: amLODIPine Besylate 10 MG TABLET PO (08:07)
[2021-12-10] MEDS: 0.9 % Sodium Chloride Flush 3 ML SYRINGE IVFLUSH (08:08)
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
--- NOTE | 2021-12-10 15:00 | W.MHC.F2F ---
Service Date Service Date: 12/10/21 Encounter Date of encounter: 12/10/21 Encounter: Acute on chronic back pain. Reasons for Services Signs and symptoms assessed: Back pain. Reason for physical therapy: home safety and mobility, therapeutic exercises, restore joint function, gait/transfer training, assess need for DME, ADL training, energy conservation and other MD Overseeing Care: Giorgi Leach Homebound: Leaving the home is medically contraindicated at this time without the asist of a device and/or another person due th the listed conditions above and below. Reason homebound: weakness related to hospital stay Homebound supporting statement: Patient has acute on chronic back pain which is improving, seen by PT recommended home PT, patient has [employer]. Certification: Based on the above findings, I certify that this patient is confined to the home and needs intermittent prison care, physical therapy and/or speech therapy, or continues to need occupational therapy. The patient is under my care, and I have initiated the establishment of the plan of care. The patient will be followed by a physician who will periodically review the plan of care.
== END 2021-12-10 15:30 | disposition home health service (06) | DRG 92 ==
LOC: HO.ED 12-06 15:06 → HO.EDOVER 12-06 16:14 → HO.S3 12-06 17:18
PROVIDERS: Emergency Medicine Emergency Medical Services; Admitting Provider Nurse Practitioner Acute Care; Emergency Provider Emergency Medicine; PCP Family Medicine; Visit Provider Internal Medicine
DX: G89.21 Chronic pain due to trauma (principal); Z68.42 Body mass index [BMI] 45.0-49.9, adult; I10 Essential (primary) hypertension; G40.909 Epilepsy, unspecified, not intractable, without status epilepticus; E66.01 Morbid (severe) obesity due to excess calories; Z20.822 Contact with and (suspected) exposure to COVID-19; Z88.0 Allergy status to penicillin; Z88.5 Allergy status to narcotic agent; Z88.8 Allergy status to other drugs, medicaments and biological substances; Z79.899 Other long term (current) drug therapy
CPT/HCPCS: 36415; 72132; 80048; 80053; 81003; 83605; 83690; 85025; 85652; 85730; 86140; 87633; 87635; 96361; 96372; 96374; 96375; 96376; 97110; 97162; 97530; 99218; 99284; 99285; J1170; J1650; J1885; J3360; Q9967

== ENCOUNTER 2021-12-15 05:22 | Emergency (ER) | payer MEDICARE, MEDICAID, SELFPAY ==
[2021-12-15 05:27] VITALS: BP 184/70; PULSE 63; RESP 16; TEMP 37.1; O2SAT 99; BMI 42.3
== END 2021-12-15 08:34 | disposition left against medical advice (07) ==
PROVIDERS: Emergency Provider Emergency Medicine; PCP Family Medicine
DX: M54.50 Low back pain, unspecified (principal); M79.605 Pain in left leg; M79.604 Pain in right leg
CPT/HCPCS: 99281

== ENCOUNTER 2021-12-19 20:37 | Emergency (ER) | payer MEDICARE, MEDICAID, SELFPAY ==
[2021-12-19 21:33] VITALS: BP 174/69; PULSE 58; RESP 18; TEMP 37.2; O2SAT 100; BMI 45.4
[2021-12-20 01:37] VITALS: BP 174/64; PULSE 60; TEMP 36.8; O2SAT 99
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
[2021-12-20] MEDS: HYDROmorphone HCl 2 MG/ML VIAL IM (02:34)
== END 2021-12-20 03:58 | disposition home or self-care (01) ==
PROVIDERS: Emergency Provider Emergency Medicine Emergency Medical Services
DX: G89.29 Other chronic pain (principal); M54.50 Low back pain, unspecified; I10 Essential (primary) hypertension; E78.5 Hyperlipidemia, unspecified; Z79.891 Long term (current) use of opiate analgesic; Z79.02 Long term (current) use of antithrombotics/antiplatelets; Z79.899 Other long term (current) drug therapy
CPT/HCPCS: 96372; 99283; 99284; J1170

== ENCOUNTER 2022-05-23 07:44 | Emergency (ER) | payer MEDICARE, MEDICAID, SELFPAY ==
[2022-05-23 07:46] VITALS: BP 153/68; PULSE 60; RESP 19; TEMP 36.6; O2SAT 95; BMI 47.0
--- OUTSIDE RECORDS SUMMARY | 2022-05-23 08:15 | XMS_ITS ---
:1965 Author Care Team Providers Name Role Phone [facility] OTHER [phone] KEITH RAMON MD Primary Care Provider [phone] Allergies Code Code System Name Reaction Severity Status Onset 1 RxNorm Metformin ? ? Active ? Penicillins ? ? Active ? 43592 RxNorm Tramadol ? ? Active ? Medications Notes: med list reviewed, see mar for accuracy Problems Name Status Onset Date Source ? Hyperlipidemia Active 09/09/2020 ? Mixed Anxiety and Depressive Disorder Active 09/09/2020 ? Seizure Disorder Active 09/09/2020 ? Essential Hypertension Active 09/09/2020 ? Gastroesophageal Reflux Disease without Esophagitis Active 09/09/2020 ? Constipation Active 09/09/2020 ? Chronic Back Pain Active 09/09/2020 ? At Risk for Falls Active 09/09/2020 ? Procedures Notes: gastric bypass, low back surger ies, left femoral ORIF Results Lab Results None recorded. Past Encounters None recorded. Social History Tobacco Smoking Status Never Smoker Vaccine List Vaccine Type Tdap 09/29/2011 Plan of Care Reminders Provider Appointments None recorded. ? ? Lab None recorded. ? ? Referral None recorded. ? ? Procedures None recorded. ? ? Surgeries None recorded. ? ? Imaging None recorded. ? ? Vitals Height Blood Pressure 5 ft 9 in 134/73 mm[Hg]
[2022-05-23] MEDS: oxyCODONE HCl Immed Release 5 MG TABLET 10 MG PO (09:12)
[2022-05-23] MEDS: Cyclobenzaprine HCl 10 MG TABLET PO (09:12)
[2022-05-23] MEDS: predniSONE 20 MG TABLET 60 MG PO (09:13)
[2022-05-23] MEDS: Ketorolac Tromethamine 30 MG/ML VIAL IM (09:13)
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
[2022-05-23 10:00] VITALS: BP 172/69; PULSE 58; RESP 18; TEMP 38.5; O2SAT 98
[2022-05-23] MEDS: HYDROmorphone HCl 1 MG/ML SYRINGE IM (10:37)
[2022-05-23 11:15] VITALS: RESP 16; TEMP 37
== END 2022-05-23 11:32 | disposition home or self-care (01) ==
PROVIDERS: Emergency Provider Student in an Organized Health Care Education/Training Program; PCP Family Medicine
DX: G89.29 Other chronic pain (principal); M54.50 Low back pain, unspecified; R50.9 Fever, unspecified; I10 Essential (primary) hypertension; E78.5 Hyperlipidemia, unspecified; Z79.02 Long term (current) use of antithrombotics/antiplatelets; Z79.899 Other long term (current) drug therapy
CPT/HCPCS: 96372; 99284; J1170; J1885

== ENCOUNTER 2023-02-16 21:24 | Emergency (ER) | payer MEDICARE, MEDICAID, SELFPAY ==
[2023-02-16 21:29] VITALS: BP 186/99; PULSE 69; RESP 18; TEMP 37.4; O2SAT 98; BMI 47.0
[2023-02-16 23:40] VITALS: BP 191/73; PULSE 62; RESP 20; TEMP 36.9; O2SAT 98
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
--- NOTE | 2023-02-17 00:10 | PC.NURSE ---
This RN assumed care at this time
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
== END 2023-02-17 01:47 | disposition home or self-care (01) ==
PROVIDERS: Emergency Provider Internal Medicine
DX: S80.02XA Contusion of left knee, initial encounter (principal); W19.XXXA Unspecified fall, initial encounter; I10 Essential (primary) hypertension; E78.5 Hyperlipidemia, unspecified; Z79.899 Other long term (current) drug therapy; Y93.9 Activity, unspecified; Y92.9 Unspecified place or not applicable; Y99.9 Unspecified external cause status
CPT/HCPCS: 72100; 73562; 99283

== ENCOUNTER 2024-09-25 21:05 | Emergency (ER) | payer MEDICARE, MEDICAID, SELFPAY ==
--- NOTE | 2024-09-25 | ECG_ITS ---
Test Reason : BRADYCARDIA Blood Pressure : */* mmHG Vent. Rate : 46 BPM Atrial Rate : 46 BPM P-R Int : 188 ms QRS Dur : 84 ms QT Int : 466 ms P-R-T Axes : 36 -2 12 degrees QTcB Int : 407 ms Sinus bradycardia Otherwise normal ECG When compared with ECG of 31-Aug-2021 00:43, No significant change was found Referred By: Generic ED Physician Electronically Signed By: NAINA AYALA MD
--- NOTE | ~2024-09-25 | XR_ITS ---
CLINICAL HISTORY: R shoulder pain 3 view right shoulder Comparison: None Findings: Osteopenia. Old fracture with deformity at the mid humerus. Widened acromioclavicular joint up to 8 mm. Slight distal clavicle offset cephalad. Glenohumeral joint unremarkable. No erosions. No radiopaque foreign body. IMPRESSION: 1. Acromioclavicular type 2 separation. Age indeterminate. 2. Old mid humerus fracture. This document has been electronically signed by: Kirstin Liu MD on 09/25/2024 23:13:23
[2024-09-25 21:18] VITALS: BP 151/55; PULSE 47; RESP 20; TEMP 36.8; O2SAT 96; BMI 50.0
[2024-09-25 22:37] VITALS: BP 192/74; PULSE 45; RESP 16; O2SAT 98
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
[2024-09-25] MEDS: Ketorolac Tromethamine 15 MG/ML VIAL IM (23:52)
[2024-09-25] MEDS: methocarbamoL 750 MG TABLET 1500 MG PO (23:52)
[2024-09-26 00:02] VITALS: BP 177/77; PULSE 44; RESP 13; TEMP 36.6; O2SAT 96
[2024-09-26 00:14] VITALS: BP 177/77; PULSE 44; RESP 13; TEMP 36.6; O2SAT 96
== END 2024-09-26 00:15 | disposition home or self-care (01) ==
PROVIDERS: Emergency Provider Emergency Medicine; PCP Family Medicine
DX: M25.511 Pain in right shoulder (principal); R00.1 Bradycardia, unspecified; Z79.899 Other long term (current) drug therapy
CPT/HCPCS: 73030; 93005; 96372; 99284; 99285; J1885

== ENCOUNTER → 2024-09-25 21:28 | Outpatient (BNV) | payer MEDICARE, MEDICAID, SELFPAY | PROVIDERS: Emergency Provider Emergency Medicine; PCP Family Medicine; Visit Provider Internal Medicine Cardiovascular Disease | DX: R00.1 Bradycardia, unspecified (principal) | CPT/HCPCS: 93010 ==

== ENCOUNTER → 2024-09-25 21:45 | Outpatient (BNV) | payer MEDICARE, MEDICAID, SELFPAY | PROVIDERS: Emergency Provider Emergency Medicine; PCP Family Medicine; Visit Provider Radiology Diagnostic Radiology | DX: M25.511 Pain in right shoulder (principal) | CPT/HCPCS: 73030 ==

== ENCOUNTER 2024-10-10 02:07 | Emergency (ER) | payer MEDICARE, MEDICAID, SELFPAY ==
[2024-10-10 02:17] VITALS: BP 159/96; PULSE 62; RESP 16; TEMP 36.9; O2SAT 96; BMI 50.1
--- OUTSIDE RECORDS SUMMARY | 2024-10-10 02:52 | XMS_ITS ---
Author Name [facility] Organization Unknown Care Team Organization Name Specialty Phone Email Start Date End Janes [email or web address] [facility] 03/28/2024 [facility] 03/26/2024
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
[2024-10-10 04:26] VITALS: BP 00/00; PULSE 0; RESP 18; TEMP -17.7; TEMP 0; O2SAT 0
== END 2024-10-10 04:28 | disposition home or self-care (01) ==
PROVIDERS: Emergency Provider Emergency Medicine; PCP Family Medicine
DX: G89.29 Other chronic pain (principal); M25.511 Pain in right shoulder; I10 Essential (primary) hypertension; E78.5 Hyperlipidemia, unspecified; Z79.899 Other long term (current) drug therapy; Z79.02 Long term (current) use of antithrombotics/antiplatelets
CPT/HCPCS: 99282; 99284

== ENCOUNTER 2024-11-03 15:36 | Emergency (ER) | payer MEDICARE, MEDICAID, SELFPAY ==
--- NOTE | ~2024-11-03 | XR_ITS ---
CLINICAL HISTORY: pain. fracture? 2 view right humerus Comparison: None provided Findings: Chronic fracture of the humeral diaphysis and chronic deformity of the humeral head. No acute fracture or dislocation. IMPRESSION: 1. No acute osseous injury. This document has been electronically signed by: Porsha Sullivan MD on 11/03/2024 16:34:15
--- NOTE | ~2024-11-03 | XR_ITS ---
CLINICAL HISTORY: Shoulder pain 3 view right shoulder Comparison: CR - XR SHOULDER RT MIN 2V - 09/25/24 21:52 EDT Findings: Chronic fracture of the humeral diaphysis. No acute fracture or dislocation. Normal alignment and distance in the acromioclavicular joint, improved when compared to 09/25/2024. No erosions. No radiopaque foreign body. Chronic deformity of the humeral head. IMPRESSION: 1. No acute osseous injury. 2. Chronic fracture deformity of the humeral diaphysis and humeral head. This document has been electronically signed by: Porsha Sullivan MD on 11/03/2024 16:34:02
[2024-11-03 15:40] VITALS: BP 204/91; PULSE 58; RESP 20; TEMP 37.2; O2SAT 98; BMI 50.1
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
[2024-11-03 16:43] VITALS: BP 181/78; PULSE 59; RESP 20; TEMP 36.6; O2SAT 98
--- NOTE | 2024-11-03 17:18 | PC.NURSE ---
Dr. Piedra at bedside speaking with patient for primary evaluation at this time.
[2024-11-03] MEDS: HYDROmorphone HCl 2 MG/ML VIAL IM (17:27)
[2024-11-03 17:47] VITALS: BP 181/78; PULSE 59; RESP 20; TEMP 36.6; O2SAT 98
== END 2024-11-03 17:47 | disposition home or self-care (01) ==
PROVIDERS: Emergency Provider Emergency Medicine Emergency Medical Services; PCP Family Medicine
DX: G89.4 Chronic pain syndrome (principal); M79.601 Pain in right arm; I10 Essential (primary) hypertension; Z79.899 Other long term (current) drug therapy; Z98.84 Bariatric surgery status
CPT/HCPCS: 73030; 73060; 96372; 99283; 99284; J1171

== ENCOUNTER → 2024-11-03 15:47 | Outpatient (BNV) | payer MEDICARE, MEDICAID, SELFPAY | PROVIDERS: PCP Family Medicine; Visit Provider Radiology Diagnostic Radiology | DX: S42.211D Unspecified displaced fracture of surgical neck of right humerus, subsequent encounter for fracture with routine healing (principal); M79.621 Pain in right upper arm | CPT/HCPCS: 73030; 73060 ==